=== PATIENT | male | born 1955 | race Caucasian/White ===

== ENCOUNTER → 2018-02-07 01:23 | Outpatient (CLI) | payer MEDICARE, SELFPAY ==
[2018-02-07 11:25] LABS: HCT 42.9 % (40.0-50.0); HGB 14.5 g/dL (13.5-17.5); Mean Corp. HGB Concentration 33.8 g/dL (32.0-36.0); Mean Corpuscular Hemoglobin 32.2 pg (27.0-33.0); Mean Corpuscular Volume 95.3 fL (80-95); Platelet Count 128 x1000/uL (130-400); RBC Distribution Width 13.3 % (11.8-14.1); White Blood Cell Count 3.06 k/cumm (4.4-10.8)
[2018-02-07 11:29] LABS: Anion Gap 4.8 mmol/L (3-11); BUN 17 mg/dL (7-18); CO2 31.2 mmol/L (21.0-32.0); CREATININE 0.73 mg/dL (0.70-1.30); Calcium 8.5 mg/dL (8.5-10.1); Chloride 104 mmol/L (98-107); Cholesterol 167 mg/dL (50-200); Glucose 97 mg/dL (70-100); HDL Cholesterol 41 mg/dL (40-60); LDL CHOLESTEROL 114 mg/dL (<100); Sodium 140 mmol/L (136-145); Triglyceride 60 mg/dL (30-150)
[2018-02-07 11:35] LABS: INR 1.9 (1.0-3.5); Prothrombin Time 17.8 sec (9.3-10.8)
== END ==
PROVIDERS: PCP Family Medicine; Visit Provider Family Medicine
DX: I10 Essential (primary) hypertension (principal); R53.82 Chronic fatigue, unspecified; I82.890 Acute embolism and thrombosis of other specified veins; Z79.01 Long term (current) use of anticoagulants
CPT/HCPCS: 36415; 80048; 80061; 83721; 85027; 85610

== ENCOUNTER 2018-03-17 09:41 | Outpatient (CLI) | payer MEDICARE, SELFPAY ==
[2018-03-17 10:04] LABS: Prothrombin Time 17.7 sec (9.3-10.8)
[2018-03-17 10:06] LABS: INR 1.8 (1.0-3.5)
== END 2018-03-17 10:01 ==
PROVIDERS: PCP Family Medicine; Visit Provider Family Medicine
DX: I82.890 Acute embolism and thrombosis of other specified veins (principal); Z79.01 Long term (current) use of anticoagulants
CPT/HCPCS: 36415; 85610

== ENCOUNTER 2018-03-25 11:06 | Emergency (ER) | payer MEDICARE, SELFPAY ==
[2018-03-25] VITALS (10 sets, daily range): BP systolic 119–139; BP diastolic 73–84; PULSE 72–83; RESP 15–28; TEMP 36.5–36.7; O2SAT 96–99
--- NOTE | 2018-03-25 11:16 | W.ED.GENAD ---
Discharge Plan Disposition Patient Disposition: HOME Condition: Stable Discharge Details Chief Complaint: CVA/TIA Clinical Impression: Dementia, Weakness Reason For Visit: GABRIEL Primary Care Provider: Simon Mojica ED Provider: Radha Nair Home Meds and New Rx's Prescriptions: Continue glucosamine sulfate 1,000 MG capsule 2,000 mg PO DAILY RF: 0 finasteride [Proscar] 5 MG tablet 5 mg PO DAILY Qty: 90 RF: 4 warfarin [Coumadin] 7.5 MG tablet 0 - 2 tab PO DAILY Qty: 100 RF: 5 warfarin 2.5 MG tablet 2.5 mg PO As Directed Qty: 100 RF: 3 valacyclovir 500 MG tablet 500 mg PO DAILY RF: 0 sodium chloride [Edna 128] 3.5 GM ointment 3.5 gm Ophthalmic DAILY RF: 0 prednisolone acetate 5 ML drops,suspension 1 drp Ophthalmic DAILY RF: 0 Metoprolol Succinate 50 MG TAB.ER.24H 50 mg PO DAILY Qty: 90 RF: 4 methylphenidate HCl 10 MG tablet 10 mg PO BID Qty: 60 RF: 0 ipratropium bromide 15 ML spray,non-aerosol 2 spry NS TID PRNQty: 1 RF: 1 Discharge Instructions Instructions: Dementia (ED), Weakness (ED) Additional Instructions: Please return immediately to the emergency department if you develop any new or worsening symptoms or if you become otherwise concerned. It is extremely important that you make an appointment to be seen by Dr. Miles of neurology and also by Dr. Mojica this week in follow-up. Referrals: Simon Mojica MD [Primary Care Provider] - Marina Miles MD [ [facility] STAFF PHYSICIAN] - Discharge Data Discharge Date/Time-TO BE ENTERED AT DEPARTURE: 03/25/18 14:54 Medical Decision Making [facility] Narrative Medical decision making narrative: Bharathi Mora is a 62 y/o man with history of hypertension, pulmonary embolism on Coumadin presenting to the emergency department with sensation of weakness in all 4 extremities and inability to move any extremities, change in speech. On exam, patient has normal tone and does have strength in his extremities. He has deep tendon reflexes. His weakness appears to be volitional, as of holding his mouth shut while talking. Unclear if there may be some mild stroke symptoms prompting secondary volitional component, plan for CT head, screening labs, EKG, will monitor and reassess. CT head okay. I did discuss the patient with Dr. Martinez, who has seen the patient in the emergency department: Exam not consistent with TIA/CVA, she suspects dementia as possible etiology. Patient now reporting to me that his weakness seems improved and he is moving all his limbs normally. His speech is also normal. On reassessment, I spoke with the patient's who reports the patient has had memory issues over the past 10 years that seem to be worsening, and he seems to be generally more confused over the past few months. Had a lengthy discussion with her and the patient regarding return to emergency department precautions and importance of outpatient follow-up with PCP and neurology for further evaluation. They are amenable to plan. Medical Records Medical records reviewed: Yes I reviewed the patient's medical records. Imaging Data Radiologic Study: Attestation: I personally reviewed and interpreted this imaging study as follows: Radiologist's impression: CRANIAL CT (WITHOUT CONTRAST): A noncontrast cranial CT was performed. Comparison 07/19/17. The ventricular system is normal in appearance. There is no evidence of an intracranial mass lesion. There is no evidence of a subdural or epidural hematoma. No focal areas of decreased attenuation are seen. CONCLUSION: Normal noncontrast Cranial CT. The findings were discussed with the emergency department on the date of the examination. Lab Data Lab results reviewed: Yes I reviewed the patient's lab results. ECG Data Attestation: I personally reviewed and interpreted this ECG (s) as follows: Interpretation: EKG shows NSR at 84 with normal axis, no acute ischemic changes, nondiagnostic EKG HPI - General Adult General Date/Time Provider Initiated Documentation: 03/25/18 11:12. Information obtained by: patient, family, RN notes reviewed and old records reviewed. HPI Narrative: Bharathi Mora is a 2-year-old man with history of hypertension, pulmonary embolism on Coumadin presenting to the emergency department with inability to move. Patient and his report that [employer] he was doing work outside of his house when he began to feel weak. He came into the house and sat down in a chair and felt that he could not move any of his limbs and that his speech was altered. Patient has report that he has had some similar symptoms in the past, but they have resolved rapidly and he has not sought medical attention. Patient denies any pain, shortness of breath, cough, difficulty swallowing, visual changes, numbness/tingling, recent travel, recent illnesses. Has been eating and drinking normally. Related Data Home Medications Medication Instructions Recorded Confirmed glucosamine sulfate 2,000 mg PO DAILY 12/03/12 03/25/18 finasteride [Proscar] 5 mg PO DAILY #90 tab-cap 06/01/17 03/25/18 warfarin 2.5 mg PO As Directed #100 tab-cap 18 03/25/18 warfarin [Coumadin] 0 - 2 tab PO DAILY #100 tab 08/31/17 03/25/18 ipratropium bromide 2 spry NS TID PRN #1 spray 02/05/18 03/25/18 methylphenidate HCl 10 mg PO BID #60 tab-cap 02/05/18 03/25/18 prednisolone acetate 1 drp OPHTHALMIC DAILY drp 02/05/18 03/25/18 sodium chloride [Edna 128] 3.5 gm OPHTHALMIC DAILY 02/05/18 03/25/18 valacyclovir 500 mg PO DAILY tab-cap 02/05/18 03/25/18 Previous Rx's Medication Instructions Recorded finasteride [Proscar] 5 mg PO DAILY #90 tab-cap 06/01/17 warfarin 2.5 mg PO As Directed #100 tab-cap 08/31/17 warfarin [Coumadin] 0 - 2 tab PO DAILY #100 tab 08/31/17 methylphenidate HCl 10 mg PO BID #60 tab-cap 02/05/18 Allergies Allergy/AdvReac Type Severity Reaction Status Date / Time peanut AdvReac Mild DIARRHEA Unverified 03/25/18 12:16 Review of Systems Review of Systems Constitutional: denies fevers Eyes: denies eye pain ENT: denies facial pain, dental pain, sore throat, difficulty swallowing Cardiovascular: denies chest pain, edema Respiratory: denies SOB, cough GI: denies abdominal pain, vomiting, diarrhea : denies flank pain MSK: denies back pain, neck pain, arthralgias, myalgias Skin: denies rash Neuro: denies headaches, lightheadedness, reports weakness of all limbs, difficulty speaking PFSH Family History Mother Essential hypertension Myocardial infarction Cerebrovascular accident Father Diabetes Heart disease Asthma Brother HIV disease Brother No problems noted. Brother Diabetes Heart disease Brother Heart disease Medical History ADHD (Acute) Memory loss (Acute) Paroxysmal SVT (supraventricular tachycardia) (Acute) BPH (benign prostatic hyperplasia) (Chronic) DVT (deep venous thrombosis) (Chronic) Hypertension (Chronic) Mitral insufficiency (Chronic) PVD (peripheral vascular disease) (Chronic) Pulmonary embolism (Chronic) Social History Smoking/Tobacco Use Status: Former Tobacco Use Surgical History Appendectomy IVC filter (~2008) Exam Narrative Exam Narrative: Constitutional: well and [id number], pleasant, speech somewhat garbled, patient opening his mouth minimally during speaking HENT: head atraumatic, normocephalic normal inspection, mucous membranes moist Eyes: conjunctiva normal, sclera normal, pupils 3mm b/l Neck: no stridor, normal ROM, trachea midline Chest: normal inspection Resp: normal work of breathing, LCTAB Cardio: normal rate, normal rhythm, no murmur appreciated GI: abdomen soft, non-tender, non-distended Back: normal inspection, no rash Skin: warm, dry, normal color, no rash Neuro: alert, not altered, cranial nerves II through XII intact, DTRs all extremities 3+, patient reporting that he cannot move any of his limbs at all against gravity, however when I move 1 of his limbs into the air he holds it there, this is true for all extremities Ext: no edema Psych: normal mood, normal affect, normal behavior
--- NOTE | 2018-03-25 11:21 | DI.CT_ITS ---
SYMPTOMS/DIAGNOSIS: EXTREMITY WEAKNESS, ? CVA CRANIAL CT (WITHOUT CONTRAST): A noncontrast cranial CT was performed. Comparison 07/19/17. The ventricular system is normal in appearance. There is no evidence of an intracranial mass lesion. There is no evidence of a subdural or epidural hematoma. No focal areas of decreased attenuation are seen. CONCLUSION: Normal noncontrast Cranial CT. The findings were discussed with the emergency department on the date of the examination.
[2018-03-25 12:08] LABS: Abs Immature Grans 0.01 k/cumm (0.0-0.09); Absolute Basophil Count 0.01 k/cumm (0.0-0.2); Absolute Eosinophil Count 0.06 k/cumm (0.0-0.7); Absolute Lymphocyte Count 0.93 k/cumm (1.2-3.4); Absolute Monocyte Count 0.63 k/cumm (0.11-0.7); Absolute Neutrophil Count 3.89 k/cumm (1.2-6.7); Basophils % 0.2; Eosinophils % 1.1; HCT 43.1 % (40.0-50.0); HGB 14.9 g/dL (13.5-17.5); Immature Grans % 0.2; Lymphocytes % 16.8; Mean Corp. HGB Concentration 34.6 g/dL (32.0-36.0); Mean Corpuscular Hemoglobin 32.7 pg (27.0-33.0); Mean Corpuscular Volume 94.7 fL (80-95); Mean Platelet Volume 11.1 fL (8.0-11.0); Monocytes % 11.4; Neutrophils % 70.3; Platelet Count 126 x1000/uL (130-400); RBC 4.55 m/cumm (4.50-6.00); RBC Distribution Width 13.3 % (11.8-14.1); White Blood Cell Count 5.53 k/cumm (4.4-10.8)
[2018-03-25 12:09] LABS: Lactate-non-spesis 1.3 mmol/L (0.6-1.4)
--- NOTE | 2018-03-25 12:17 | W.NEUROCONSU ---
Date of service: 03/25/18 History of Present Illness Chief Complaint: Quadriplegia Narrative: Mr. Mora is a 62-year-old, right-handed man with a past medical history of paroxysmal SVT, peripheral vascular disease, prior PE and DVT status post IVC filter and on Coumadin, ADHD, hypertension, and history of dementia first mentioned in the chart since 2014. He was at home alone this morning. While working in his shop, he describes numbness and tingling in his arms and legs which progressed to weakness/quadriplegia. He sat down and was able to call his who recommended he call 911. This was around 10 AM. EMS came to his house and brought him to the [facility] emergency room. In the emergency room, he was noted to have no spontaneous movements including the face. He was able to speak but this was somewhat altered per history. I was able to evaluate him at approximately noon time in which I witnessed him make a rapid and complete recovery. Otherwise, he has a history of memory loss documented in the chart since 2014. His notes that he has had significant difficulty with short-term memory, has been going on longer than 3 years, but has been especially worse in the last 3 years. She took over management of the bills approximately 10 years ago. He continues to drive but only locally and for short distances. He does not drive at night as he has severe halos with lights which he gets distracted by while driving. 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 He had a CT head performed today which I was able to review and showed no acute processes. He has mild generalized cerebral atrophy and moderate apparent white matter disease changes. It is unchanged from a CT head performed earlier this year. He has had CT head's performed in 2012, 2015, and 2016 of which the reports were read as normal. He has had a recent normal TSH. I cannot find any evidence that he has had a B12 level checked. In 2008, he weighted over 500# by report. He has lost the weight slowly over the last 9 years. Consults Consult date: 03/25/18 Requesting physician: Radha Nair Assessment and Plan (1) Quadriplegia: Current visit: No Status: Acute Transient, now resolved. See discussion below. (2) Dementia: Current visit: No Status: Chronic Mr. Mora is a 62-year-old, right-handed man who presented with acute and rapid onset bilateral arm and leg paresthesias followed by rapid quadriplegia involving his face and neck. Extensive work-up including CT head, labs, and EKG were unremarkable. He has made a complete and spontaneous recovery. His neurological exam is now normal. I suspect that his clinical symptoms were psychogenic and related to his underlying venting process. He does have some parkinsonian features. Dementia with Lewy Bodies and frontotemporal dementia remain on the differential. Alzheimer's seems less likely given his young age, but also remains on the differential. He should follow-up in the neurology clinic for a more thorough evaluation. Review of Systems Review of Systems All systems reviewed & are unremarkable except as noted in HPI and below PFSH Family History Mother Essential hypertension Myocardial infarction Cerebrovascular accident Father Diabetes Heart disease Asthma Brother HIV disease Brother No problems noted. Brother Diabetes Heart disease Brother Heart disease Medical History ADHD (Acute) Memory loss (Acute) Paroxysmal SVT (supraventricular tachycardia) (Acute) BPH (benign prostatic hyperplasia) (Chronic) DVT (deep venous thrombosis) (Chronic) Hypertension (Chronic) Mitral insufficiency (Chronic) PVD (peripheral vascular disease) (Chronic) Pulmonary embolism (Chronic) Social History Smoking/Tobacco Use Status: Former Tobacco Use Surgical History Appendectomy IVC filter (~2008) Exam Narrative Exam Narrative: Physical Exam: Gen: Patient of apparent stated age, NAD, mild-mod masked facies Head and face: no facial or cranial abnormalities Neck: Supple, no meningismus, no occipital tenderness CV: RRR Resp: CTA B/L Abd: soft, nontender, nondistended Ext: No edema. No clubbing or cyanosis. No bony deformity. Peripheral vascular color changes in bilateral LE. Neuro Exam: Language: fluency, naming, repetition, and comprehension intact; Mental Status: AAO to self, current events intact, fund of knowledge intact; Speech: no dysarthria Cranial nerves: Funduscopy: not performed CN II: visual mccall intact CN III, IV, : extraocular movements intact, no nystagmus, pupils symmetric and reactive to light CN V: face sensation intact to LT and PP CN VII: no facial asymmetry noted CN VIII: hearing intact bilaterally CN IX, X: palate rises symmetrically CN XI: trapezius/SCM 5/5 bilaterally CN XII: protrudes tongue symmetrically Sensory: intact to LT and PP in all extremities; PP reduced distally bilateral in the LE Motor: bulk intact. Initially upon exam, had only minimal movements in right hand and in neck turning. By end of visit, had full 5/5 strength throughout distally and proximally. Reflexes: 2+ at the biceps, triceps, brachioradialis, patella, and achilles tendons bilaterally; toes down going bilaterally; Coordination: no ataxia Gait: deferred; Results Labs : 03/25/18 11:55 03/25/18 11:55 Laboratory Results - last 24 hr 03/25/18 03/25/18 11:55 11:55 WBC 5.53 RBC 4.55 Hgb 14.9 Hct 43.1 MCV 94.7 MCH 32.7 MCHC 34.6 RDW 13.3 Plt Count 126 L MPV 11.1 H Immature Gran % 0.2 Neutrophils % 70.3 Lymphocytes % 16.8 Monocytes % 11.4 Eosinophils % 1.1 Basophils % 0.2 Absolute Neutrophils 3.89 Absolute Lymphocytes 0.93 L Absolute Monocytes 0.63 Absolute Eosinophils 0.06 Absolute Basophils 0.01 Lactate 1.3 Vital Signs 03/25/18 11:25 03/25/18 11:29 03/25/18 11:30 03/25/18 11:30 03/25/18 11:44 03/25/18 11:46 03/25/18 11:50 03/25/18 12:00 03/25/18 12:01 03/25/18 12:10 03/25/18 14:45 Weight 110.7 kg 110.7 kg 110.7 kg BP 139/84 139/84 120/82 119/73 119/73 Blood Pressure Location Lt brachial Position Supine Supine Respiration 19 19 24 15 28 H 19 17 24 24 17 Pulse 78 78 79 77 72 Temp 36.5 C 36.5 C 36.7 C Temp Source Temporal Artery Scan Temporal Artery Scan Pulse Oximetry (%) 98 98 97 98 99 96 98 96 97 Oxygen Flow Rate 0 0 Ambulatory Orders Medication Instructions Recorded glucosamine sulfate 2,000 mg PO DAILY 12/03/12 finasteride [Proscar] 5 mg PO DAILY #90 tab-cap 06/01/17 warfarin 2.5 mg PO As Directed #100 tab-cap 08/31/17 warfarin [Coumadin] 0 - 2 tab PO DAILY #100 tab 08/31/17 Metoprolol Succinate 50 mg PO DAILY #90 tab-cap 02/05/18 ipratropium bromide 2 spry NS TID PRN #1 spray 02/05/18 methylphenidate HCl 10 mg PO BID #60 tab-cap 02/05/18 prednisolone acetate 1 drp OPHTHALMIC DAILY drp 02/05/18 sodium chloride [Edna 128] 3.5 gm OPHTHALMIC DAILY 02/05/18 valacyclovir 500 mg PO DAILY tab-cap 02/05/18
[2018-03-25 12:20] LABS: Prothrombin Time 14.9 sec (9.3-10.8)
[2018-03-25 12:21] LABS: INR 1.5 (1.0-3.5)
--- NOTE | 2018-03-25 12:21 | NUR.NOTE ---
Nursing Note: 1200 began feeling and movement in head and extremities-By 1210 complete recovery
--- NOTE | 2018-03-25 12:25 | NCONE_ITS ---
Date of service: 03/25/18 History of Present Illness Chief Complaint: Quadriplegia Narrative: Mr. Mora is a 62-year-old, right-handed man with a past medical history of paroxysmal SVT, peripheral vascular disease, prior PE and DVT status post IVC filter and on Coumadin, ADHD, hypertension, and history of dementia first mentioned in the chart since 2014. He was at home alone this morning. 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 He sat down and was able to call his who recommended he call 911. This was around 10 AM. EMS came to his house and brought him to the [facility] emergency room. In the emergency room, he was noted to have no spontaneous movements including the face. He was able to speak but this was somewhat altered per history. I was able to evaluate him at approximately noon time in which I witnessed him make a rapid and complete recovery. Otherwise, he has a history of memory loss documented in the chart since 2014. His notes that he has had significant difficulty with short-term memory, has been going on longer than 3 years, but has been especially worse in the last 3 years. She took over management of the bills approximately 10 years ago. He continues to drive but only locally and for short distances. He does not drive at night as he has severe halos with lights which he gets distracted by while driving. 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 He had a CT head performed today which I was able to review and showed no acute processes. He has mild generalized cerebral atrophy and moderate apparent white matter disease changes. It is unchanged from a CT head performed earlier this year. He has had CT head's performed in 2012, 2015, and 2016 of which the reports were read as normal. He has had a recent normal TSH. I cannot find any evidence that he has had a B12 level checked. In 2008, he weighted over 500# by report. He has lost the weight slowly over the last 9 years. Consults Consult date: 03/25/18 Requesting physician: Radha Nair Assessment and Plan (1) Quadriplegia: Current visit: No Status: Acute Transient, now resolved. See discussion below. (2) Dementia: Current visit: No Status: Chronic Mr. Mora is a 62-year-old, right-handed man who presented with acute and rapid onset bilateral arm and leg paresthesias followed by rapid quadriplegia involving his face and neck. Extensive work-up including CT head, labs, and EKG were unremarkable. He has made a complete and spontaneous recovery. His neurological exam is now normal. I suspect that his clinical symptoms were psychogenic and related to his underlying venting process. He does have some parkinsonian features. Dementia with Lewy Bodies and frontotemporal dementia remain on the differential. Alzheimer's seems less likely given his young age, but also remains on the differential. He should follow-up in the neurology clinic for a more thorough evaluation. Review of Systems Review of Systems All systems reviewed & are unremarkable except as noted in HPI and below PFSH Family History Mother Essential hypertension Myocardial infarction Cerebrovascular accident Father Diabetes Heart disease Asthma Brother HIV disease Brother No problems noted. Brother Diabetes Heart disease Brother Heart disease Medical History ADHD (Acute) Memory loss (Acute) Paroxysmal SVT (supraventricular tachycardia) (Acute) BPH (benign prostatic hyperplasia) (Chronic) DVT (deep venous thrombosis) (Chronic) Hypertension (Chronic) Mitral insufficiency (Chronic) PVD (peripheral vascular disease) (Chronic) Pulmonary embolism (Chronic) Social History Smoking/Tobacco Use Status: Former Tobacco Use Surgical History Appendectomy IVC filter (~2008) Exam Narrative Exam Narrative: Physical Exam: Gen: Patient of apparent stated age, NAD, mild-mod masked facies Head and face: no facial or cranial abnormalities Neck: Supple, no meningismus, no occipital tenderness CV: RRR Resp: CTA B/L Abd: soft, nontender, nondistended Ext: No edema. No clubbing or cyanosis. No bony deformity. Peripheral vascular color changes in bilateral LE. Neuro Exam: Language: fluency, naming, repetition, and comprehension intact; Mental Status: AAO to self, current events intact, fund of knowledge intact; Speech: no dysarthria Cranial nerves: Funduscopy: not performed CN II: visual mccall intact CN III, IV, : extraocular movements intact, no nystagmus, pupils symmetric and reactive to light CN V: face sensation intact to LT and PP CN VII: no facial asymmetry noted CN VIII: hearing intact bilaterally CN IX, X: palate rises symmetrically CN XI: trapezius/SCM 5/5 bilaterally CN XII: protrudes tongue symmetrically Sensory: intact to LT and PP in all extremities; PP reduced distally bilateral in the LE Motor: bulk intact. Initially upon exam, had only minimal movements in right hand and in neck turning. By end of visit, had full 5/5 strength throughout distally and proximally. Reflexes: 2+ at the biceps, triceps, brachioradialis, patella, and achilles tendons bilaterally; toes down going bilaterally; Coordination: no ataxia Gait: deferred; Results Labs : 03/25/18 11:55 03/25/18 11:55 Laboratory Results - last 24 hr 03/25/18 03/25/18 11:55 11:55 WBC 5.53 RBC 4.55 Hgb 14.9 Hct 43.1 MCV 94.7 MCH 32.7 MCHC 34.6 RDW 13.3 Plt Count 126 L MPV 11.1 H Immature Gran % 0.2 Neutrophils % 70.3 Lymphocytes % 16.8 Monocytes % 11.4 Eosinophils % 1.1 Basophils % 0.2 Absolute Neutrophils 3.89 Absolute Lymphocytes 0.93 L Absolute Monocytes 0.63 Absolute Eosinophils 0.06 Absolute Basophils 0.01 Lactate 1.3 Vital Signs 3 l l l l 03/25/18 11:25 l l 03/25/18 11:29 l l 03/25/18 11:30 l l 03/25/18 11:30 l l 03/25/18 11:44 l l 03/25/18 11:46 l l 03/25/18 11:50 l l 03/25/18 12:00 l l 03/25/18 12:01 l l 03/25/18 12:10 l l 03/25/18 14:45 l l Weight 110.7 kg 110.7 kg 110.7 kg l l BP 139/84 139/84 120/82 119/73 119/73 l l Blood Pressure Location Lt brachial l l Position Supine Supine l l Respiration 19 19 24 15 28 H 19 17 24 24 17 l l Pulse 78 78 79 77 72 l l Temp 36.5 C 36.5 C 36.7 C l l Temp Source Temporal Artery Scan Temporal Artery Scan l l Pulse Oximetry (%) 98 98 97 98 99 96 98 96 97 l l Oxygen Flow Rate 0 0 Ambulatory Orders Medication Instructions Recorded glucosamine sulfate 2,000 mg PO DAILY 12/03/12 finasteride [Proscar] 5 mg PO DAILY #90 tab-cap 06/01/17 warfarin 2.5 mg PO As Directed #100 tab-cap 08/31/17 warfarin [Coumadin] 0 - 2 tab PO DAILY #100 tab 08/31/17 Metoprolol Succinate 50 mg PO DAILY #90 tab-cap 02/05/18 ipratropium bromide 2 spry NS TID PRN #1 spray 02/05/18 methylphenidate HCl 10 mg PO BID #60 tab-cap 02/05/18 prednisolone acetate 1 drp OPHTHALMIC DAILY drp 02/05/18 sodium chloride [Edna 128] 3.5 gm OPHTHALMIC DAILY 02/05/18 valacyclovir 500 mg PO DAILY tab-cap 02/05/18
[2018-03-25 12:28] LABS: ALT 20 U/L (12-78); AST 21 U/L (15-37); Albumin 3.4 g/dL (3.4-5.0); Alkaline Phosphatase 81 U/L (46-116); Anion Gap 5.3 mmol/L (3-11); BUN 18 mg/dL (7-18); Bilirubin, Total 0.9 mg/dL (0.2-1.0); CO2 31.7 mmol/L (21.0-32.0); CREATININE 0.75 mg/dL (0.70-1.30); Calcium 8.9 mg/dL (8.5-10.1); Chloride 106 mmol/L (98-107); Glucose 91 mg/dL (70-100); Potassium 3.5 mmol/L (3.5-5.1); Sodium 143 mmol/L (136-145); Total Protein 7.2 g/dL (6.4-8.2); Troponin I < 0.02 ng/mL (0.00-0.06)
[2018-03-25 12:33] LABS: TSH (W/Ref FT4) 2.72 uIU/mL (0.358-3.74)
[2018-03-25 14:13] LABS: Bilirubin Negative (Negative); Blood Trace-intact (Negative); Clarity Clear; Glucose Negative (Negative); Ketones Trace mg/dL (Negative); Leukocyte Esterase Negative (Negative); Nitrite Negative (Negative); Urobilinogen 0.2 EU/dL (Up TO 0.2)
[2018-03-25 14:23] LABS: Bacteria Few HPF (Negative); C & S Indicated? No; Casts Negative LPF (Negative); Crystals Negative HPF (Negative); Epithelial Cells Moderate HPF (Negative); Mucus Moderate (Negative); RBC 0-2 (0-2); WBC Negative HPF (0-5)
--- NOTE | 2018-04-01 18:40 | ED.GENADUL_ITS ---
Discharge Plan Disposition Patient Disposition: HOME Condition: Stable Discharge Details Chief Complaint: CVA/TIA Clinical Impression: Dementia, Weakness Reason For Visit: GABRIEL Primary Care Provider: Simon Mojica ED Provider: Radha Nair Home Meds and New Rx's Prescriptions: Continue glucosamine sulfate 1,000 MG capsule 2,000 mg PO DAILY RF: 0 finasteride [Proscar] 5 MG tablet 5 mg PO DAILY Qty: 90 RF: 4 warfarin [Coumadin] 7.5 MG tablet 0 - 2 tab PO DAILY Qty: 100 RF: 5 warfarin 2.5 MG tablet 2.5 mg PO As Directed Qty: 100 RF: 3 valacyclovir 500 MG tablet 500 mg PO DAILY RF: 0 sodium chloride [Edna 128] 3.5 GM ointment 3.5 gm Ophthalmic DAILY RF: 0 prednisolone acetate 5 ML drops,suspension 1 drp Ophthalmic DAILY RF: 0 Metoprolol Succinate 50 MG TAB.ER.24H 50 mg PO DAILY Qty: 90 RF: 4 methylphenidate HCl 10 MG tablet 10 mg PO BID Qty: 60 RF: 0 ipratropium bromide 15 ML spray,non-aerosol 2 spry NS TID PRNQty: 1 RF: 1 Discharge Instructions Instructions: Dementia (ED), Weakness (ED) Additional Instructions: Please return immediately to the emergency department if you develop any new or worsening symptoms or if you become otherwise concerned. It is extremely important that you make an appointment to be seen by Dr. Miles of neurology and also by Dr. Mojica this week in follow-up. Referrals: Simon Mojica MD [Primary Care Provider] - Marina Miles MD [ [facility] STAFF PHYSICIAN] - Discharge Data Discharge Date/Time-TO BE ENTERED AT DEPARTURE: 03/25/18 14:54 Medical Decision Making [facility] Narrative Medical decision making narrative: Bharathi Mora is a 62 y/o man with history of hypertension, pulmonary embolism on Coumadin presenting to the emergency department with sensation of weakness in all 4 extremities and inability to move any extremities, change in speech. On exam, patient has normal tone and does have strength in his extremities. He has deep tendon reflexes. His weakness appears to be volitional, as of holding his mouth shut while talking. Unclear if there may be some mild stroke symptoms prompting secondary volitional component, plan for CT head, screening labs, EKG, will monitor and reassess. CT head okay. I did discuss the patient with Dr. Martinez, who has seen the patient in the emergency department: Exam not consistent with TIA/CVA, she suspects dementia as possible etiology. Patient now reporting to me that his weakness seems improved and he is moving all his limbs normally. His speech is also normal. On reassessment, I spoke with the patient's who reports the patient has had memory issues over the past 10 years that seem to be worsening, and he seems to be generally more confused over the past few months. Had a lengthy discussion with her and the patient regarding return to emergency department precautions and importance of outpatient follow-up with PCP and neurology for further evaluation. They are amenable to plan. Medical Records Medical records reviewed: Yes I reviewed the patient's medical records. Imaging Data Radiologic Study: Attestation: I personally reviewed and interpreted this imaging study as follows: Radiologist's impression: CRANIAL CT (WITHOUT CONTRAST): A noncontrast cranial CT was performed. Comparison 07/19/17. The ventricular system is normal in appearance. There is no evidence of an intracranial mass lesion. There is no evidence of a subdural or epidural hematoma. No focal areas of decreased attenuation are seen. CONCLUSION: Normal noncontrast Cranial CT. The findings were discussed with the emergency department on the date of the examination. Lab Data Lab results reviewed: Yes I reviewed the patient's lab results. ECG Data Attestation: I personally reviewed and interpreted this ECG (s) as follows: Interpretation: EKG shows NSR at 84 with normal axis, no acute ischemic changes , nondiagnostic EKG HPI - General Adult General Date/Time Provider Initiated Documentation: 03/25/18 11:12 . Information obtained by: patient, family, RN notes reviewed and old records reviewed . HPI Narrative: Bharathi Mora is a 2-year-old man with history of hypertension, pulmonary embolism on Coumadin presenting to the emergency department with inability to move. Patient and his report that JPT[employer] he was doing work outside of his house when he began to feel weak. He came into the house and sat down in a chair and felt that he could not move any of his limbs and that his speech was altered. Patient has report that he has had some similar symptoms in the past, but they have resolved rapidly and he has not sought medical attention. Patient denies any pain, shortness of breath, cough, difficulty swallowing, visual changes, numbness/tingling, recent travel, recent illnesses. Has been eating and drinking normally. Related Data Home Medications Medication Instructions Recorded Confirmed glucosamine sulfate 2,000 mg PO DAILY 12/03/12 03/25/18 finasteride [Proscar] 5 mg PO DAILY #90 tab-cap 06/01/17 03/25/18 warfarin 2.5 mg PO As Directed #100 tab-cap 18 03/25/18 warfarin [Coumadin] 0 - 2 tab PO DAILY #100 tab 08/31/17 03/25/18 ipratropium bromide 2 spry NS TID PRN #1 spray 02/05/18 03/25/18 methylphenidate HCl 10 mg PO BID #60 tab-cap 02/05/18 03/25/18 prednisolone acetate 1 drp OPHTHALMIC DAILY drp 02/05/18 03/25/18 sodium chloride [Edna 128] 3.5 gm OPHTHALMIC DAILY 02/05/18 03/25/18 valacyclovir 500 mg PO DAILY tab-cap 02/05/18 03/25/18 Previous Rx's Medication Instructions Recorded finasteride [Proscar] 5 mg PO DAILY #90 tab-cap 06/01/17 warfarin 2.5 mg PO As Directed #100 tab-cap 08/31/17 warfarin [Coumadin] 0 - 2 tab PO DAILY #100 tab 08/31/17 methylphenidate HCl 10 mg PO BID #60 tab-cap 02/05/18 Allergies Allergy/AdvReac Type Severity Reaction Status Date / Time peanut AdvReac Mild DIARRHEA Unverified 03/25/18 12:16 Review of Systems Review of Systems Constitutional: denies fevers Eyes: denies eye pain ENT: denies facial pain, dental pain, sore throat, difficulty swallowing Cardiovascular: denies chest pain, edema Respiratory: denies SOB, cough GI: denies abdominal pain, vomiting, diarrhea : denies flank pain MSK: denies back pain, neck pain, arthralgias, myalgias Skin: denies rash Neuro: denies headaches, lightheadedness, reports weakness of all limbs, difficulty speaking PFSH Family History Mother Essential hypertension Myocardial infarction Cerebrovascular accident Father Diabetes Heart disease Asthma Brother HIV disease Brother No problems noted. Brother Diabetes Heart disease Brother Heart disease Medical History ADHD (Acute) Memory loss (Acute) Paroxysmal SVT (supraventricular tachycardia) (Acute) BPH (benign prostatic hyperplasia) (Chronic) DVT (deep venous thrombosis) (Chronic) Hypertension (Chronic) Mitral insufficiency (Chronic) PVD (peripheral vascular disease) (Chronic) Pulmonary embolism (Chronic) Social History Smoking/Tobacco Use Status: Former Tobacco Use Surgical History Appendectomy IVC filter (~2008) Exam Narrative Exam Narrative: Constitutional: well and [id number], pleasant, speech somewhat garbled, patient opening his mouth minimally during speaking HENT: head atraumatic, normocephalic normal inspection, mucous membranes moist Eyes: conjunctiva normal, sclera normal, pupils 3mm b/l Neck: no stridor, normal ROM, trachea midline Chest: normal inspection Resp: normal work of breathing, LCTAB Cardio: normal rate, normal rhythm, no murmur appreciated GI: abdomen soft, non-tender, non-distended Back: normal inspection, no rash Skin: warm, dry, normal color, no rash Neuro: alert, not altered, cranial nerves II through XII intact, DTRs all extremities 3+, patient reporting that he cannot move any of his limbs at all against gravity, however when I move 1 of his limbs into the air he holds it there, this is true for all extremities Ext: no edema Psych: normal mood, normal affect, normal behavior
== END 2018-03-25 14:54 | disposition home or self-care (01) ==
PROVIDERS: Emergency Provider Student in an Organized Health Care Education/Training Program; PCP Family Medicine
DX: F03.90 Unspecified dementia, unspecified severity, without behavioral disturbance, psychotic disturbance, mood disturbance, and anxiety (principal); R53.1 Weakness; R47.9 Unspecified speech disturbances; I12.9 Hypertensive chronic kidney disease with stage 1 through stage 4 chronic kidney disease, or unspecified chronic kidney disease; N18.9 Chronic kidney disease, unspecified; Z79.01 Long term (current) use of anticoagulants; Z86.711 Personal history of pulmonary embolism
CPT/HCPCS: 36415; 80053; 93005; 99215; 99255; 99285; 70450; 81003; 81015; 83605; 84443; 84484; 85025; 85610; 93010

== ENCOUNTER → 2018-03-27 10:29 | Outpatient (BNVA) | payer MEDICARE, SELFPAY | PROVIDERS: PCP Family Medicine; Visit Provider Psychiatry & Neurology Neurology | DX: R69 Illness, unspecified (principal) ==

== ENCOUNTER 2018-04-09 02:20 | Outpatient (CLI) | payer MEDICARE, SELFPAY ==
[2018-04-09 11:03] LABS: INR 2.5 (1.0-3.5); Prothrombin Time 23.5 sec (9.3-10.8)
== END 2018-04-09 02:40 ==
PROVIDERS: PCP Family Medicine; Visit Provider Family Medicine
DX: I82.890 Acute embolism and thrombosis of other specified veins (principal); Z79.01 Long term (current) use of anticoagulants
CPT/HCPCS: 36415; 85610

== ENCOUNTER → 2018-04-16 13:27 | Outpatient (BNVA) | payer MEDICARE, SELFPAY | PROVIDERS: PCP Family Medicine; Visit Provider Psychiatry & Neurology Neurology | DX: F90.0 Attention-deficit hyperactivity disorder, predominantly inattentive type (principal); R41.3 Other amnesia; R20.2 Paresthesia of skin; I10 Essential (primary) hypertension | CPT/HCPCS: 99214 ==

== ENCOUNTER 2018-04-22 00:45 | Outpatient (CLI) | payer MEDICARE, SELFPAY ==
--- NOTE | 2018-04-22 14:12 | DI.US_ITS ---
SYMPTOMS/DIAGNOSIS: SUDDEN ONSET RIGHT-SIDED WEAKNESS, B45.9, TRANSIENT ISCHEMIC ATTACK, DYSPHASIA BILATERAL DUPLEX CAROTID ULTRASOUND: Duplex evaluation of the carotid circulation was performed according to the usual protocol. There is mild atheromatous plaque formation in the carotid bifurcations bilaterally. Flow velocities in common internal and external carotid arteries are within normal limits bilaterally. There is bilateral antegrade vertebral flow. CONCLUSION: No evidence of a hemodynamically significant carotid stenosis.
== END 2018-04-22 01:05 ==
PROVIDERS: PCP Family Medicine; Visit Provider Family Medicine
DX: G45.9 Transient cerebral ischemic attack, unspecified (principal); R47.02 Dysphasia; R29.898 Other symptoms and signs involving the musculoskeletal system
CPT/HCPCS: 93880

== ENCOUNTER 2018-04-23 01:20 | Outpatient (CLI) | payer MEDICARE, SELFPAY ==
--- NOTE | 2018-04-23 10:45 | DI.MRI_ITS ---
SYMPTOM/DIAGNOSIS: MEMORY LOSS, SPELLS, G30.8, ALZHEIMERS, DEMENTIA, F02.80 BRAIN MRI: Sagittal and axial T 2, axial diffusion and axial T 2 hemo pulse sequences were performed. There is moderate generalized atrophy. Small bilateral solitary regions of increased signal are noted in the frontoparietal white matter consistent with minimal small vessel disease. There is no evidence of a hemorrhage or mass. There is no evidence of restricted diffusion. The ventricles are unremarkable. The normal flow void is demonstrated in the visualized cerebral vessels. SUMMARY: There is mild to moderate generalized atrophy and evidence of minimal small vessel disease. The study is otherwise unremarkable.
== END 2018-04-23 01:40 ==
PROVIDERS: PCP Family Medicine; Visit Provider Psychiatry & Neurology Neurology
DX: G30.9 Alzheimer's disease, unspecified (principal); F02.80 Dementia in other diseases classified elsewhere, unspecified severity, without behavioral disturbance, psychotic disturbance, mood disturbance, and anxiety; R41.3 Other amnesia; G31.9 Degenerative disease of nervous system, unspecified
CPT/HCPCS: 70551

== ENCOUNTER 2018-05-14 02:23 | Outpatient (CLI) | payer MEDICARE, SELFPAY ==
[2018-05-14 11:33] LABS: INR 2.4 (1.0-3.5); Prothrombin Time 22.9 sec (9.3-10.8)
== END 2018-05-14 02:43 ==
PROVIDERS: PCP Family Medicine; Visit Provider Family Medicine
DX: I82.890 Acute embolism and thrombosis of other specified veins (principal); Z79.01 Long term (current) use of anticoagulants
CPT/HCPCS: 36415; 85610

== ENCOUNTER 2018-05-17 10:01 | Emergency (ER) | payer MEDICARE, SELFPAY ==
[2018-05-17] VITALS (29 sets, daily range): BP systolic 99–138; BP diastolic 63–83; PULSE 45–89; RESP 14–23; TEMP 36.6; O2SAT 92–100
--- NOTE | 2018-05-17 10:06 | W.ED.GENAD ---
Discharge Plan Disposition Patient Disposition: HOME Condition: Stable Discharge Details Chief Complaint: CVA/TIA Clinical Impression: Transient right leg weakness Reason For Visit: SHENG Primary Care Provider: Simon Mojica ED Provider: Demarcus Pyle Home Meds and New Rx's Prescriptions: No Action methylphenidate HCl 10 mg tablet 10 mg PO BID MDD 20 mg Qty: 60 RF: 0 glucosamine sulfate 1,000 MG capsule 2,000 mg PO DAILY RF: 0 finasteride [Proscar] 5 MG tablet 5 mg PO DAILY Qty: 90 RF: 4 warfarin [Coumadin] 7.5 MG tablet 0 - 2 tab PO DAILY Qty: 100 RF: 5 warfarin 2.5 MG tablet 2.5 mg PO As Directed Qty: 100 RF: 3 sodium chloride [Edna 128] 3.5 GM ointment 3.5 gm Ophthalmic DAILY RF: 0 prednisolone acetate 5 ML drops,suspension 1 drp Ophthalmic DAILY RF: 0 ipratropium bromide 15 ML spray,non-aerosol 2 spry NS TID PRNQty: 1 RF: 1 valacyclovir 500 mg Tablet 500 mg PO DAILY RF: 0 Discharge Instructions Additional Instructions: Your cat scans and lab work did not show any significant findings You are wearing the zio patch to evaluate for atrial fibrillation IF you have severe worsening symptoms, chest pain or difficulty breathing return to the emergency department follow up with your primary care provider within a week Medical Decision Making 62 yo male with hx of pe/dvt on coumadin, pvd, gerd, who comes in with right sided arm and leg weakness starting around 915am while he was at the pediatrics office for a family member and started to have right arm and leg weakness. HAd similar symptoms in March and resolved after an hour. HE has an NIH of 6 on my exam (1 for sensation, 2 for right arm and leg drift, and 1 for partial flat nasolabial fol and smile asymmetry). HE is on coumadin so will check inr and obtain stat head ct and cta to eval for cva vs disseection labs unremarkalb and ct head and cta head/neck unremarkable. HIs symptoms have completely resolved and has NIH of 0 now. Could be psychogenic like it was presumed in Mar, but could also be TIA. NO significant stenosis of carotids or vertebrals. I did recommend admission for TIA but given the only thing we'd be evaluating for would be afib he prefers outpatient zio patch and f/u with pcp. He has capacity to make his own decisions. Will order zio patch and advised f/u as scheduled with his pcp on Sunday and return precautions given Differential Diagnosis cva, tia, dissection Imaging Data Radiologic Study: Attestation: I personally reviewed and interpreted this imaging study as follows: Imaging: CT Scan Radiologist's impression: ct head and cta brain/neck unremarkable Lab Data Lab results reviewed: Yes I reviewed the patient's lab results. ECG Data Attestation: I personally reviewed and interpreted this ECG (s) as follows: Prior ECG tracings: not available for review Interpretation: sinus rhythm, rate of 96 pr 162, no acute st t wave changes HPI General Mode of arrival: EMS. Date/Time Provider Initiated Documentation: 05/17/18 10:06. Limitations to Documentation: no limitations. Information obtained by: patient. History of Present Illness 62 year old M presents to the emergency department with the chief complaint of right sided weakness, described as moderate, and it has been constant. No relieving factors improve symptom(s), No exacerbating factors reported . Patient did receive the following treatments prior to arrival, none Related Data Home Medications Medication Instructions Recorded Confirmed glucosamine sulfate 2,000 mg PO DAILY 12/03/12 05/17/18 finasteride [Proscar] 5 mg PO DAILY #90 tab-cap 06/01/17 05/17/18 warfarin 2.5 mg PO As Directed #100 tab-cap 08/31/17 05/03/18 warfarin [Coumadin] 0 - 2 tab PO DAILY #100 tab 08/31/17 05/17/18 ipratropium bromide 2 spry NS TID PRN #1 spray 02/05/18 05/17/18 prednisolone acetate 1 drp OPHTHALMIC DAILY drp 02/05/18 05/17/18 sodium chloride [Edna 128] 3.5 gm OPHTHALMIC DAILY 02/05/18 05/17/18 methylphenidate 10 mg tablet 10 mg PO BID #60 tab-cap MDD 20 mg 05/03/18 05/17/18 valacyclovir 500 mg PO DAILY 05/17/18 05/17/18 Previous Rx's Medication Instructions Recorded finasteride [Proscar] 5 mg PO DAILY #90 tab-cap 06/01/17 warfarin 2.5 mg PO As Directed #100 tab-cap 08/31/17 warfarin [Coumadin] 0 - 2 tab PO DAILY #100 tab 08/31/17 methylphenidate 10 mg tablet 10 mg PO BID #60 tab-cap MDD 20 mg 05/03/18 Allergies Allergy/AdvReac Type Severity Reaction Status Date / Time peanut AdvReac Mild DIARRHEA Unverified 05/17/18 10:24 General BAILEY: 2 Review of Systems Review of Systems All systems reviewed & are unremarkable except as noted in HPI and below Constitutional Denies chills and Denies fever(s) Eyes Denies loss of vision ENT Denies change in voice Cardiovascular Denies chest pain and Denies dyspnea Respiratory Denies dyspnea Gastrointestinal Denies abdominal pain, Denies nausea and Denies vomiting Genitourinary Denies dysuria Musculoskeletal Denies joint swelling Integumentary/Breasts Denies rash Neurologic Denies loss of vision Psychiatric Denies depression Endocrine Denies cold intolerance and Denies heat intolerance Allergic/Immunologic Denies urticaria Exam Const General: no acute distress Orientation: alert HENMT Head: normal to inspection Ears: external ears normal General nose exam: external nose normal Mouth: moist mucous membranes Eyes General: appearance normal, both eyes and all related structures Neck Neck: normal visual inspection Resp Effort & Inspection: normal respiratory effort and able to speak in complete sentences Cardio Rate: regular rate Skin General skin exam: no rashes or lesions noted Neuro General: alert and oriented x3 Extrem General: normal to inspection Psych Mental Status: mental status grossly normal
--- NOTE | 2018-05-17 10:09 | ED.GENADUL_ITS ---
Discharge Plan Disposition Patient Disposition: HOME Condition: Stable Discharge Details Chief Complaint: CVA/TIA Clinical Impression: Transient right leg weakness Reason For Visit: SHENG Primary Care Provider: Simon Mojica ED Provider: Demarcus Pyle Home Meds and New Rx's Prescriptions: No Action methylphenidate HCl 10 mg tablet 10 mg PO BID MDD 20 mg Qty: 60 RF: 0 glucosamine sulfate 1,000 MG capsule 2,000 mg PO DAILY RF: 0 finasteride [Proscar] 5 MG tablet 5 mg PO DAILY Qty: 90 RF: 4 warfarin [Coumadin] 7.5 MG tablet 0 - 2 tab PO DAILY Qty: 100 RF: 5 warfarin 2.5 MG tablet 2.5 mg PO As Directed Qty: 100 RF: 3 sodium chloride [Enda 128] 3.5 GM ointment 3.5 gm Ophthalmic DAILY RF: 0 prednisolone acetate 5 ML drops,suspension 1 drp Ophthalmic DAILY RF: 0 ipratropium bromide 15 ML spray,non-aerosol 2 spry NS TID PRNQty: 1 RF: 1 valacyclovir 500 mg Tablet 500 mg PO DAILY RF: 0 Discharge Instructions Additional Instructions: Your cat scans and lab work did not show any significant findings You are wearing the zio patch to evaluate for atrial fibrillation IF you have severe worsening symptoms, chest pain or difficulty breathing return to the emergency department follow up with your primary care provider within a week Medical Decision Making 62 yo male with hx of pe/dvt on coumadin, pvd, gerd, who comes in with right sided arm and leg weakness starting around 915am while he was at the pediatrics office for a family member and started to have right arm and leg weakness. HAd similar symptoms in March and resolved after an hour. HE has an NIH of 6 on my exam (1 for sensation, 2 for right arm and leg drift, and 1 for partial flat nasolabial fol and smile asymmetry). HE is on coumadin so will check inr and obtain stat head ct and cta to eval for cva vs disseection labs unremarkalb and ct head and cta head/neck unremarkable. HIs symptoms have completely resolved and has NIH of 0 now. Could be psychogenic like it was presumed in Mar, but could also be TIA. NO significant stenosis of carotids or vertebrals. I did recommend admission for TIA but given the only thing we'd be evaluating for would be afib he prefers outpatient zio patch and f/u with pcp. He has capacity to make his own decisions. Will order zio patch and advised f/u as scheduled with his pcp on Sunday and return precautions given Differential Diagnosis cva, tia, dissection Imaging Data Radiologic Study: Attestation: I personally reviewed and interpreted this imaging study as follows: Imaging: CT Scan Radiologist's impression: ct head and cta brain/neck unremarkable Lab Data Lab results reviewed: Yes I reviewed the patient's lab results. ECG Data Attestation: I personally reviewed and interpreted this ECG (s) as follows: Prior ECG tracings: not available for review Interpretation: sinus rhythm, rate of 96 pr 162, no acute st t wave changes HPI General Mode of arrival: EMS . Date/Time Provider Initiated Documentation: 05/17/18 10:06 . Limitations to Documentation: no limitations . Information obtained by: patient . History of Present Illness 62 year old M presents to the emergency department with the chief complaint of right sided weakness, described as moderate, and it has been constant. No relieving factors improve symptom(s), No exacerbating factors reported . Patient did receive the following treatments prior to arrival, none Related Data Home Medications Medication Instructions Recorded Confirmed glucosamine sulfate 2,000 mg PO DAILY 12/03/12 05/17/18 finasteride [Proscar] 5 mg PO DAILY #90 tab-cap 06/01/17 05/17/18 warfarin 2.5 mg PO As Directed #100 tab-cap 08/31/17 05/03/18 warfarin [Coumadin] 0 - 2 tab PO DAILY #100 tab 08/31/17 05/17/18 ipratropium bromide 2 spry NS TID PRN #1 spray 02/05/18 05/17/18 prednisolone acetate 1 drp OPHTHALMIC DAILY drp 02/05/18 05/17/18 sodium chloride [Edna 128] 3.5 gm OPHTHALMIC DAILY 02/05/18 05/17/18 methylphenidate 10 mg tablet 10 mg PO BID #60 tab-cap MDD 20 mg 05/03/18 valacyclovir 500 mg PO DAILY 05/17/18 05/17/18 Previous Rx's Medication Instructions Recorded finasteride [Proscar] 5 mg PO DAILY #90 tab-cap 06/01/17 warfarin 2.5 mg PO As Directed #100 tab-cap 08/31/17 warfarin [Coumadin] 0 - 2 tab PO DAILY #100 tab 08/31/17 methylphenidate 10 mg tablet 10 mg PO BID #60 tab-cap MDD 20 mg 05/03/18 Allergies Allergy/AdvReac Type Severity Reaction Status Date / Time peanut AdvReac Mild DIARRHEA Unverified 05/17/18 10:24 General BAILEY: 2 Review of Systems Review of Systems All systems reviewed & are unremarkable except as noted in HPI and below Constitutional Denies chills and Denies fever(s) Eyes Denies loss of vision ENT Denies change in voice Cardiovascular Denies chest pain and Denies dyspnea Respiratory Denies dyspnea Gastrointestinal Denies abdominal pain, Denies nausea and Denies vomiting Genitourinary Denies dysuria Musculoskeletal Denies joint swelling Integumentary/Breasts Denies rash Neurologic Denies loss of vision Psychiatric Denies depression Endocrine Denies cold intolerance and Denies heat intolerance Allergic/Immunologic Denies urticaria Exam Const General: no acute distress Orientation: alert HENMT Head: normal to inspection Ears: external ears normal General nose exam: external nose normal Mouth: moist mucous membranes Eyes General: appearance normal, both eyes and all related structures Neck Neck: normal visual inspection Resp Effort & Inspection: normal respiratory effort and able to speak in complete sentences Cardio Rate: regular rate Skin General skin exam: no rashes or lesions noted Neuro General: alert and oriented x3 Extrem General: normal to inspection Psych Mental Status: mental status grossly normal
[2018-05-17 10:26] LABS: Absolute Basophil Count 0.02 k/cumm (0.0-0.2); Absolute Eosinophil Count 0.07 k/cumm (0.0-0.7); Absolute Lymphocyte Count 1.11 k/cumm (1.2-3.4); Absolute Monocyte Count 0.36 k/cumm (0.11-0.7); Absolute Neutrophil Count 2.45 k/cumm (1.2-6.7); Basophils % 0.5; Eosinophils % 1.7; HCT 45.9 % (40.0-50.0); HGB 15.9 g/dL (13.5-17.5); Lymphocytes % 27.7; Mean Corp. HGB Concentration 34.6 g/dL (32.0-36.0); Mean Corpuscular Hemoglobin 32.7 pg (27.0-33.0); Mean Corpuscular Volume 94.4 fL (80-95); Mean Platelet Volume 11.5 fL (8.0-11.0); Neutrophils % 61.1; Platelet Count 110 x1000/uL (130-400); RBC 4.86 m/cumm (4.50-6.00); RBC Distribution Width 12.9 % (11.8-14.1); White Blood Cell Count 4.01 k/cumm (4.4-10.8)
--- NOTE | 2018-05-17 10:28 | DI.CT_ITS ---
SYMPTOM/DIAGNOSIS: RT SIDED WEAKNESS NONCONTRAST HEAD CT: Comparison is made with 03/25/18. Comparison MRI is 04/23/18. There is a [place] white matter differentiation preserved. The ventricles and sulci are consistent with the patient's age. No evidence of an acute infarct, hemorrhage , midline shift or mass effect is identified. The visualized paranasal sinuses are clear. The mastoid air cells are well pneumatized. The calvarium is intact. IMPRESSION: No acute intracranial process. The findings were discussed with Dr. Pyle of the ER on the date of the examination. CTA NECK: CT angiography was performed with multi slice acquisition and multi planar and 3D reconstruction. Routine post contrast examination was performed. Findings: The right common carotid artery shows no evidence of dissection, occlusion or significant stenosis. The left common carotid artery is unremarkable without evidence of dissection, occlusion or significant stenosis. The external carotid arteries are unremarkable without evidence of occlusion or significant stenosis. There is calcification at the origins of both internal carotid arteries and the carotid bulbs but no significant stenosis is seen. No evidence of occlusion or dissection is present. The vertebral arteries are unremarkable without evidence of occlusion, dissection or significant stenosis. The lung apices are clear. The soft tissues show no gross abnormalities. Degenerative changes are present in the spine. IMPRESSION: Unremarkable CTA of the neck. No evidence of dissection or occlusion. CTA HEAD: CT angiography was performed with multi slice acquisition and multi planar and 3D reconstruction. The distal internal carotid arteries show no evidence of occlusion or aneurysm. No dissection or significant stenosis is seen. The anterior cerebral arteries are unremarkable. No evidence of occlusion, significant stenosis or aneurysm. The middle cerebral arteries are unremarkable without evidence of occlusion, aneurysm or significant stenosis. The vertebral arteries and basilar artery are unremarkable without evidence of dissection, occlusion, aneurysm or significant stenosis. The posterior cerebral arteries are unremarkable without evidence of occlusion, aneurysm or significant stenosis. IMPRESSION: Unremarkable CTA of the brain. The findings were discussed with the ER on the date of the examination.
[2018-05-17] MEDS: Omnipaque 350 MG/ML 100 ML BTL IJ (10:30)
[2018-05-17 10:41] LABS: PTT Activated 29.4 sec (21.0-31.4); Prothrombin Time 17.7 sec (9.3-10.8)
[2018-05-17 10:42] LABS: ALT 22 U/L (12-78); AST 24 U/L (15-37); Albumin 3.6 g/dL (3.4-5.0); Alkaline Phosphatase 64 U/L (46-116); Anion Gap 11.5 mmol/L (3-11); BUN 14 mg/dL (7-18); Bilirubin, Total 1.2 mg/dL (0.2-1.0); CO2 27.5 mmol/L (21.0-32.0); CREATININE 0.75 mg/dL (0.70-1.30); Calcium 9.2 mg/dL (8.5-10.1); Chloride 101 mmol/L (98-107); Glucose 91 mg/dL (70-100); INR 1.8 (1.0-3.5); Magnesium 1.7 mg/dL (1.8-2.4); Sodium 140 mmol/L (136-145); Total Protein 7.2 g/dL (6.4-8.2)
[2018-05-17 10:53] LABS: Troponin I < 0.02 ng/mL (0.00-0.06)
--- NOTE | 2018-06-06 10:50 | ZIOP_ITS ---
ZIO PATCH REPORT DATE OF DICTATION June 06, 2018 INDICATION Generalized muscle weakness. Analysis time 13 days and 17 hours. COMMENTS Predominant underlying rhythm is sinus rhythm. Average heart rate while in sinus rhythm 72 beats per minute, minimum heart rate 40 beats per minute. Maximum heart rate in sinus rhythm 152 beats per minute. First degree AV block present throughout. 1 short burst of nonsustained VT lasting 5 beats with a max rate of 126 beats per minute. 2 runs of SVT. The longest lasting 1 minute and 29 seconds with a max heart rate of 200 beats per mi nute, with an average heart rate of 173 beats per minute. Otherwise rare isolated atrial ectopy. Frequent isolated ventricular ectopy accounting for 9.3% of to valerie beats. Ventricular bigeminy and trigeminy present. No significant pauses or chato arrhythmias. Six patient triggered events of which one corresponds to bursts of SVT, four corresponds to sinus rhy thm and one corresponds to sinus rhythm with ventricular bigeminy. Seven diary entries, with symptoms such as shortness of breath, lightheadedness, dizziness, chest sara n, pressure predominantly corresponds to sinus rhythm, but occasionally to PVCs. Joby Terry M.D. DHARA/bill T - 06/06/2018
== END 2018-05-17 12:43 | disposition home or self-care (01) ==
LOC: ER 13:03
PROVIDERS: Emergency Provider Emergency Medicine; PCP Family Medicine
DX: G83.11 Monoplegia of lower limb affecting right dominant side (principal); R29.706 NIHSS score 6; Z86.718 Personal history of other venous thrombosis and embolism; Z79.01 Long term (current) use of anticoagulants; I12.9 Hypertensive chronic kidney disease with stage 1 through stage 4 chronic kidney disease, or unspecified chronic kidney disease; N18.9 Chronic kidney disease, unspecified
CPT/HCPCS: 36415; 70496; 70498; 80053; 93005; 93225; 99285; 70450; 83735; 84484; 85025; 85610; 85730; 93010; J3490

== ENCOUNTER → 2018-05-23 14:39 | Outpatient (BNVA) | payer MEDICARE, SELFPAY | PROVIDERS: PCP Family Medicine; Visit Provider Psychiatry & Neurology Neurology | DX: F03.90 Unspecified dementia, unspecified severity, without behavioral disturbance, psychotic disturbance, mood disturbance, and anxiety (principal); R46.89 Other symptoms and signs involving appearance and behavior; Z79.01 Long term (current) use of anticoagulants; I10 Essential (primary) hypertension | CPT/HCPCS: 99214 ==

== ENCOUNTER 2018-06-06 09:47 | Outpatient (CLI) | payer MEDICARE, SELFPAY | END 2018-06-06 10:07 | PROVIDERS: PCP Family Medicine; Referring Provider Emergency Medicine; Visit Provider Internal Medicine Cardiovascular Disease | DX: R53.1 Weakness (principal); M62.81 Muscle weakness (generalized); I44.0 Atrioventricular block, first degree; I47.1 Supraventricular tachycardia; I47.2 Ventricular tachycardia | CPT/HCPCS: 0298T ==

== ENCOUNTER 2018-06-14 01:13 | Outpatient (CLI) | payer MEDICARE, SELFPAY ==
--- NOTE | 2018-06-14 14:00 | MERGE_ITS ---
*[facility]* *[facility]* [address] [place] [address] Date of study: 06/14/2018 Transthoracic Echocardiography M-mode, complete 2D, complete spectral Doppler, and color Doppler *STUDY CONCLUSIONS* Summary: 1. Left ventricle: The cavity size was normal. Systolic function was hyperdynamic. The estimated ejection fraction was 65-70%. There was no evidence of elevated ventricular filling pressure by Doppler parameters. 2. Mitral valve: There was mild regurgitation. 3. Left atrium: The atrium was mildly dilated. 4. Right ventricle: The cavity size was normal. Wall thickness was normal. Systolic function was normal. 5. Atrial septum: No defect or patent foramen ovale was identified. 6. Pulmonary arteries: Pulmonary systolic pressure was in the range of 30mm Hg to 40mm Hg. 7. Inferior vena cava: The vessel was patent and normal in size. The respirophasic diameter changes were in the normal range (greater than or equal to 50%), consistent with normal central venous pressure. *PATIENT PRESENTATION* Height: 177.8cm ((70in) ) S/D Pressure: 161 / 86 Weight: 97.5kg ((214.5lb) ) BSA: 2.22m^2 Test start time: 02:20 PM. Test stop time: 03:40 PM. PERFORMING Unknown PERFORMING [facility] ORDERING Marina Miles REFERRING Marina Miles DIRECTOR OF LOSS PREVENTION RT Shahrzad (R)(MARY ANN), CYRUS *PROCEDURE DATA* Procedure information: This study was interpreted by [facility]. Pertinent images and digital data are archived for permanent storage and are available for subsequent review. Comparison was made to the study of 03/04/2009. Study status: Routine. Transthoracic echocardiography. M-mode, complete 2D, complete spectral Doppler, and color Doppler. A Transthoracic Echocardiogram was performed. Scanning was performed from the parasternal, apical, subcostal, and suprasternal notch acoustic windows. Images were obtained using an [id number] cardiac ultrasound machine. Image quality was good. A 22 gauge IV was inserted by phil malave CT [facility]. Intravenous contrast (normal saline) was administered. Definity amount administered was a total of 20ml. One vial was used. The saline was administered by Michelle alcocer RN . Study completion: The patient tolerated the procedure well. History: PMH: TIA. *CARDIAC ANATOMY* Left ventricle: The cavity size was normal. Systolic function was hyperdynamic. The estimated ejection fraction was 65-70%. Diastolic parameters were normal for age. There was no evidence of elevated ventricular filling pressure by Doppler parameters. Aortic valve: Trileaflet. Doppler: There was no stenosis. There was no regurgitation. VTI ratio of LVOT to aortic valve: 0.65. Valve area (VTI): 2.4cm^2. Indexed valve area (VTI): 1.1cm^2/m^2. Peak velocity ratio of LVOT to aortic valve: 0.68. Valve area (Vmax): 2.5cm^2. Indexed valve area (Vmax): 1.1cm^2/m^2. Mean velocity ratio of LVOT to aortic valve: 0.65. Valve area (Vmean): 2.4cm^2. Indexed valve area (Vmean): 1.1cm^2/m^2. Mean gradient (S): 5.3mm Hg. Peak gradient (S): 9.6mm Hg. Aorta: Aortic root: The aortic root was normal in size. Ascending aorta: The ascending aorta was mildly dilated. Mitral valve: Doppler: There was no evidence for stenosis. There was mild regurgitation. Valve area by pressure half-time: 3.1cm^2. Indexed valve area by pressure half-time: 1.4cm^2/m^2. Peak gradient (D): 2.2mm Hg. Left atrium: The atrium was mildly dilated. Atrial septum: No defect or patent foramen ovale was identified. Right ventricle: The cavity size was normal. Wall thickness was normal. Systolic function was normal. Pulmonic valve: Doppler: There was no evidence for stenosis. There was no significant regurgitation. Peak gradient (S): 5.1mm Hg. Tricuspid valve: Doppler: There was mild regurgitation. Pulmonary artery: Poorly visualized. Pulmonary systolic pressure was in the range of 30mm Hg to 40mm Hg. Right atrium: The atrium was normal in size. Pericardium: There was no pericardial effusion. Systemic veins: Inferior vena cava: Well visualized. The vessel was patent and normal in size. The respirophasic diameter changes were in the normal range (greater than or equal to 50%), consistent with normal central venous pressure. Baseline ECG: Normal sinus rhythm. Measurements Left ventricle Value Reference LV ID, ED, PLAX 5.3 cm 3.5 - 6.0 LV ID, ES, PLAX 3.0 cm 2.1 - 4.0 LV PW thickness, ED, PLAX 1.2 cm LV end-diastolic volume, 1-p A2C 114 ml LV ejection fraction, 1-p A2C 59 % LV end-diastolic volume, 1-p A4C 126 ml LV ejection fraction, 1-p A4C 57 % LV e', lateral 0.089 m/sec LV E/e', lateral 8 LV e', medial 0.07 m/sec LV E/e', medial 11 LV e', average 0.079 m/sec LV E/e', average 9 Ventricular septum Value Reference IVS thickness, ED, PLAX 1.2 cm LVOT Value Reference LVOT ID, A-P 2.2 cm LVOT area 3.7 cm^2 LVOT peak velocity, S 1.05 m/sec LVOT mean velocity, S 0.71 m/sec LVOT VTI, S 23.5 cm LVOT peak gradient, S 4.4 mm Hg LVOT mean gradient, S 2.3 mm Hg Stroke volume (SV), LVOT DP 86 ml Stroke index (SV/bsa), LVOT DP 39 ml/m^2 Aortic valve Value Reference Aortic valve peak velocity, S 1.6 m/sec Aortic valve mean velocity, S 1.09 m/sec Aortic valve VTI, S 36.0 cm Aortic mean gradient, S 5.3 mm Hg Aortic peak gradient, S 9.6 mm Hg VTI ratio, LVOT/AV 0.65 Aortic valve area, VTI 2.4 cm^2 Velocity ratio, peak, LVOT/AV 0.68 Aortic valve area, peak velocity 2.5 cm^2 Velocity ratio, mean, LVOT/AV 0.65 Aortic valve area, mean velocity 2.4 cm^2 Aortic valve area/bsa, mean velocity 1.1 cm^2/m^2 Aorta Value Reference Aortic root ID, ED 3.4 cm Ascending aorta ID, A-P, S 3.7 cm Left atrium Value Reference LA ID, A-P, ES 5.0 cm LA ID/bsa, A-P (H) 2.3 cm/m^2 <=2.2 LA area, ES, A4C (H) 26.7 cm^2 8.8 - 23.4 LA area, ES, A2C 22 cm^2 LA volume/bsa, ES, 1-p A4C 48 ml/m^2 LA volume, ES, 2-p 78 ml LA volume/bsa, ES, 2-p 35 ml/m^2 LA/aortic root ratio 1.47 Mitral valve Value Reference Mitral E-wave peak velocity 0.74 m/sec Mitral A-wave peak velocity 0.91 m/sec Mitral deceleration time (H) 246 ms 150 - 230 Mitral pressure half-time 71 ms Mitral peak gradient, D 2.2 mm Hg Mitral E/A ratio, peak 0.82 Mitral valve area, PHT, DP 3.1 cm^2 Pulmonary veins Value Reference Pulmonary vein peak velocity, S 0.55 m/sec Pulmonary vein peak velocity, D 0.36 m/sec Pulmonary vein velocity ratio, peak, 1.54 S/D Pulmonary vein A-wave reversal peak 0.33 m/sec velocity Tricuspid valve Value Reference Tricuspid regurg peak velocity 2.8 m/sec Tricuspid peak RV-RA gradient 32.2 mm Hg Right atrium Value Reference RA area, ES, A4C 18.7 cm^2 8.3 - 19.5 Pulmonic valve Value Reference Pulmonic peak gradient, S 5.1 mm Hg Legend: (L) and (H) mindy values outside specified reference range. I have personally reviewed the images and have reviewed and edited the reported findings. Electronically signed by Demarcus Lafleur MD 06/14/2018 17:06
[2018-06-14] MEDS: Normal Saline Flush 10 ML SYR 20 ML IVP (16:19)
[2018-06-14 16:22] LABS: INR 2.3 (1.0-3.5); Prothrombin Time 21.6 sec (9.3-10.8)
[2018-06-14 17:27] LABS: Vitamin B12 338 pg/mL (193-986)
== END 2018-06-14 01:33 ==
PROVIDERS: PCP Family Medicine; Visit Provider Psychiatry & Neurology Neurology
DX: G45.9 Transient cerebral ischemic attack, unspecified (principal); I34.0 Nonrheumatic mitral (valve) insufficiency; I82.890 Acute embolism and thrombosis of other specified veins; Z79.01 Long term (current) use of anticoagulants; G30.8 Other Alzheimer's disease; F02.80 Dementia in other diseases classified elsewhere, unspecified severity, without behavioral disturbance, psychotic disturbance, mood disturbance, and anxiety
CPT/HCPCS: 36415; 93306; 82607; 85610

== ENCOUNTER → 2018-06-18 08:37 | Outpatient (BNVA) | payer MEDICARE, SELFPAY | PROVIDERS: PCP Family Medicine; Visit Provider Psychiatry & Neurology Neurology | DX: F03.90 Unspecified dementia, unspecified severity, without behavioral disturbance, psychotic disturbance, mood disturbance, and anxiety; R46.89 Other symptoms and signs involving appearance and behavior; I44.0 Atrioventricular block, first degree; I10 Essential (primary) hypertension | CPT/HCPCS: 99214 ==

== ENCOUNTER 2018-06-20 02:07 | Outpatient (CLI) | payer MEDICARE, SELFPAY ==
--- NOTE | 2018-07-12 09:11 | ZIOP_ITS ---
ZIO Patch INTERPRETATION DATE OF DICTATION July 12, 2018 INDICATION TIA. Analysis time 13 days and 17 hours. Predominant underlying rhythm is sinus rhythm with first-degree AV block. Average heart rate 74 beats per minute, minimum heart rate 41 beats per minute, maximum heart rate 207 beats per minute. 3 short bursts of nonsustained ventricular tachycardia. The longest lasting 4 beats. 4 short bursts of SVT. SVT with fastest interval lasting 8 beats with a max heart rate of 207 beats per minute. The longest lasting 11 beats. Rare atrial ectopy. No atrial fibrillation detected. Frequent isolated ventricular ectopy accounting for 15.3% of total beats. 2 patient trigged events correspond to sinus rhythm with frequent PVCs. Two diary entries with symptoms of lightheadedness, and racing, fluttering sensation correspond to sinus rhythm with frequent PVCs. No significant pauses or chato arrhythmias. Joby Terry M.D. Laisha T-07/12/2018
== END 2018-06-20 02:27 ==
PROVIDERS: PCP Family Medicine; Visit Provider Psychiatry & Neurology Neurology
DX: G45.9 Transient cerebral ischemic attack, unspecified (principal); I44.0 Atrioventricular block, first degree; I47.1 Supraventricular tachycardia; I49.3 Ventricular premature depolarization
CPT/HCPCS: 93225

== ENCOUNTER 2018-07-12 08:49 | Outpatient (CLI) | payer MEDICARE, SELFPAY | END 2018-07-12 09:09 | PROVIDERS: PCP Family Medicine; Referring Provider Family Medicine; Visit Provider Internal Medicine Cardiovascular Disease | DX: G45.9 Transient cerebral ischemic attack, unspecified (principal); I44.0 Atrioventricular block, first degree; I47.1 Supraventricular tachycardia; I49.3 Ventricular premature depolarization | CPT/HCPCS: 0298T ==

== ENCOUNTER 2018-07-17 01:08 | Outpatient (CLI) | payer MEDICARE, SELFPAY | END 2018-07-17 01:28 | PROVIDERS: PCP Family Medicine; Visit Provider Family Medicine | DX: I82.890 Acute embolism and thrombosis of other specified veins (principal); Z79.01 Long term (current) use of anticoagulants | CPT/HCPCS: 36415; 85610 ==

== ENCOUNTER 2018-08-23 03:10 | Outpatient (CLI) | payer MEDICARE, SELFPAY ==
[2018-08-23 11:22] LABS: INR 1.5 (0.9-1.1); Prothrombin Time 14.6 sec (9.3-11.0)
== END 2018-08-23 03:30 ==
PROVIDERS: PCP Family Medicine; Visit Provider Family Medicine
DX: I82.890 Acute embolism and thrombosis of other specified veins (principal); Z79.01 Long term (current) use of anticoagulants
CPT/HCPCS: 36415; 85610

== ENCOUNTER 2018-08-30 01:12 | Outpatient (CLI) | payer MEDICARE, SELFPAY ==
[2018-08-30 11:39] LABS: INR 1.8 (0.9-1.1); Prothrombin Time 18.5 sec (9.3-11.0)
== END 2018-08-30 01:32 ==
PROVIDERS: PCP Family Medicine; Visit Provider Family Medicine
DX: I82.890 Acute embolism and thrombosis of other specified veins (principal); Z79.01 Long term (current) use of anticoagulants
CPT/HCPCS: 36415; 85610

== ENCOUNTER 2018-09-13 08:41 | Outpatient (CLI) | payer MEDICARE, SELFPAY ==
[2018-09-13 12:22] LABS: Prothrombin Time 57.9 sec (9.3-11.0)
[2018-09-13 13:29] LABS: INR 5.7 (0.9-1.1)
== END 2018-09-13 09:01 ==
PROVIDERS: PCP Family Medicine; Visit Provider Family Medicine
DX: I82.890 Acute embolism and thrombosis of other specified veins (principal); Z79.01 Long term (current) use of anticoagulants
CPT/HCPCS: 36415; 85610

== ENCOUNTER 2018-09-16 03:04 | Outpatient (CLI) | payer MEDICARE, SELFPAY ==
[2018-09-16 11:11] LABS: INR 2.7 (0.9-1.1); Prothrombin Time 27.3 sec (9.3-11.0)
== END 2018-09-16 03:24 ==
PROVIDERS: PCP Family Medicine; Visit Provider Family Medicine
DX: I82.890 Acute embolism and thrombosis of other specified veins (principal); Z79.01 Long term (current) use of anticoagulants
CPT/HCPCS: 36415; 85610

== ENCOUNTER 2018-09-20 02:24 | Outpatient (CLI) | payer MEDICARE, SELFPAY ==
[2018-09-20 11:07] LABS: INR 1.5 (0.9-1.1); Prothrombin Time 15.3 sec (9.3-11.0)
== END 2018-09-20 02:44 ==
PROVIDERS: PCP Family Medicine; Visit Provider Family Medicine
DX: I82.890 Acute embolism and thrombosis of other specified veins (principal); Z79.01 Long term (current) use of anticoagulants
CPT/HCPCS: 36415; 85610

== ENCOUNTER 2018-09-27 01:40 | Outpatient (CLI) | payer MEDICARE, SELFPAY ==
[2018-09-27 11:14] LABS: INR 1.5 (0.9-1.1); Prothrombin Time 15.3 sec (9.3-11.0)
== END 2018-09-27 02:00 ==
PROVIDERS: PCP Family Medicine; Visit Provider Family Medicine
DX: I82.890 Acute embolism and thrombosis of other specified veins (principal); Z79.01 Long term (current) use of anticoagulants
CPT/HCPCS: 36415; 85610

== ENCOUNTER 2018-10-04 02:08 | Outpatient (CLI) | payer MEDICARE, SELFPAY ==
[2018-10-04 11:27] LABS: INR 1.5 (0.9-1.1); Prothrombin Time 14.9 sec (9.3-11.0)
== END 2018-10-04 02:28 ==
PROVIDERS: PCP Family Medicine; Visit Provider Family Medicine
DX: I82.890 Acute embolism and thrombosis of other specified veins (principal); Z79.01 Long term (current) use of anticoagulants
CPT/HCPCS: 36415; 85610

== ENCOUNTER 2018-10-11 02:57 | Outpatient (CLI) | payer MEDICARE, SELFPAY ==
[2018-10-11 10:13] LABS: INR 1.9 (0.9-1.1)
== END 2018-10-11 03:17 ==
PROVIDERS: PCP Family Medicine; Visit Provider Family Medicine
DX: I82.890 Acute embolism and thrombosis of other specified veins (principal); Z79.01 Long term (current) use of anticoagulants
CPT/HCPCS: 36415; 85610

== ENCOUNTER 2018-10-25 01:22 | Outpatient (CLI) | payer MEDICARE, SELFPAY ==
[2018-10-25 10:38] LABS: INR 2.6 (0.9-1.1)
== END 2018-10-25 01:42 ==
PROVIDERS: PCP Family Medicine; Visit Provider Family Medicine
DX: I82.890 Acute embolism and thrombosis of other specified veins (principal); Z79.01 Long term (current) use of anticoagulants; I44.0 Atrioventricular block, first degree; I10 Essential (primary) hypertension
CPT/HCPCS: 36415; 99203; 99215; 85610

== ENCOUNTER 2018-11-21 02:16 | Outpatient (CLI) | payer MEDICARE, SELFPAY ==
[2018-11-21 11:49] LABS: Prothrombin Time 19.6 sec (9.3-11.0)
[2018-11-21 11:55] LABS: INR 1.9 (0.9-1.1)
== END 2018-11-21 02:36 ==
PROVIDERS: PCP Family Medicine; Visit Provider Family Medicine
DX: I82.890 Acute embolism and thrombosis of other specified veins (principal); Z79.01 Long term (current) use of anticoagulants
CPT/HCPCS: 36415; 85610

== ENCOUNTER 2018-12-20 02:39 | Outpatient (CLI) | payer MEDICARE, SELFPAY ==
[2018-12-20 11:36] LABS: INR 2.2 (0.9-1.1); Prothrombin Time 21.9 sec (9.3-11.0)
== END 2018-12-20 02:59 ==
PROVIDERS: PCP Family Medicine; Visit Provider Family Medicine
DX: I82.890 Acute embolism and thrombosis of other specified veins (principal); Z79.01 Long term (current) use of anticoagulants
CPT/HCPCS: 36415; 85610

== ENCOUNTER 2019-01-17 02:22 | Outpatient (CLI) | payer MEDICARE, SELFPAY ==
[2019-01-17 13:02] LABS: INR 2.1 (0.9-1.1); Prothrombin Time 21.4 sec (9.3-11.0)
== END 2019-01-17 02:42 ==
PROVIDERS: PCP Family Medicine; Visit Provider Family Medicine
DX: I82.890 Acute embolism and thrombosis of other specified veins (principal); Z79.01 Long term (current) use of anticoagulants
CPT/HCPCS: 36415; 85610

== ENCOUNTER 2019-02-14 03:57 | Outpatient (CLI) | payer MEDICARE, SELFPAY ==
[2019-02-14 10:50] LABS: INR 1.9 (0.9-1.1); Prothrombin Time 18.9 sec (9.3-11.0)
== END 2019-02-14 04:17 ==
PROVIDERS: PCP Family Medicine; Visit Provider Family Medicine
DX: I82.890 Acute embolism and thrombosis of other specified veins (principal); Z79.01 Long term (current) use of anticoagulants
CPT/HCPCS: 36415; 85610

== ENCOUNTER 2019-03-14 03:49 | Outpatient (CLI) | payer MEDICARE, SELFPAY ==
[2019-03-14 11:09] LABS: INR 1.9 (0.9-1.1); Prothrombin Time 19.5 sec (9.3-11.0)
== END 2019-03-14 04:09 ==
PROVIDERS: PCP Family Medicine; Visit Provider Family Medicine
DX: I82.890 Acute embolism and thrombosis of other specified veins (principal); Z79.01 Long term (current) use of anticoagulants
CPT/HCPCS: 36415; 85610

== ENCOUNTER 2019-04-11 02:27 | Outpatient (CLI) | payer MEDICARE, SELFPAY ==
[2019-04-11 11:13] LABS: INR 1.9 (0.9-1.1); Prothrombin Time 19.1 sec (9.3-11.0)
== END 2019-04-11 02:47 ==
PROVIDERS: PCP Family Medicine; Visit Provider Family Medicine
DX: I82.890 Acute embolism and thrombosis of other specified veins (principal); Z79.01 Long term (current) use of anticoagulants
CPT/HCPCS: 36415; 85610

== ENCOUNTER 2019-05-09 00:55 | Outpatient (CLI) | payer MEDICARE, SELFPAY ==
[2019-05-09 11:00] LABS: INR 2.1 (0.9-1.1); Prothrombin Time 20.6 sec (9.3-11.0)
== END 2019-05-09 01:15 ==
PROVIDERS: PCP Family Medicine; Visit Provider Family Medicine
DX: I82.890 Acute embolism and thrombosis of other specified veins (principal); Z79.01 Long term (current) use of anticoagulants
CPT/HCPCS: 36415; 85610

== ENCOUNTER 2019-06-13 07:13 | Outpatient (CLI) | payer MEDICARE, SELFPAY ==
[2019-06-13 09:11] LABS: INR 1.8 (0.9-1.1); Prothrombin Time 17.5 sec (9.3-11.0)
== END 2019-06-13 07:33 ==
PROVIDERS: PCP Family Medicine; Visit Provider Family Medicine
DX: I82.890 Acute embolism and thrombosis of other specified veins (principal); Z79.01 Long term (current) use of anticoagulants
CPT/HCPCS: 36415; 85610

== ENCOUNTER 2019-07-12 00:39 | Outpatient (CLI) | payer MEDICARE, SELFPAY ==
[2019-07-12 11:15] LABS: INR 2.1 (0.9-1.1)
== END 2019-07-12 00:59 ==
PROVIDERS: PCP Family Medicine; Visit Provider Family Medicine
DX: I82.890 Acute embolism and thrombosis of other specified veins (principal); Z79.01 Long term (current) use of anticoagulants
CPT/HCPCS: 36415; 85610

== ENCOUNTER 2019-08-15 10:46 | Outpatient (CLI) | payer MEDICARE, SELFPAY ==
[2019-08-15 13:05] LABS: INR 2.9 (0.9-1.1)
== END 2019-08-15 11:06 ==
PROVIDERS: PCP Family Medicine; Visit Provider Family Medicine
DX: I82.890 Acute embolism and thrombosis of other specified veins (principal); Z79.01 Long term (current) use of anticoagulants
CPT/HCPCS: 36415; 85610

== ENCOUNTER 2019-08-25 22:25 | Outpatient (REF) | payer MEDICARE, SELFPAY ==
[2019-08-25 20:15] LABS: Bilirubin Negative (Negative); Blood Small (Negative); Clarity Turbid (Clear); Glucose Negative (Negative); Ketones Negative (Negative); Leukocyte Esterase Small (Negative); Nitrite Negative (Negative); Specific Gravity 1.025 (1.005-1.025); Urobilinogen 0.2 EU/dL (Up TO 0.2)
[2019-08-25 20:25] LABS: Bacteria Negative HPF (Negative); C & S Indicated? Yes; Crystals Many Amorphous HPF (Negative); Epithelial Cells Negative HPF (Negative); Mucus Negative (Negative); WBC >50 HPF (0-5)
== END 2019-08-25 22:45 ==
LOC: LBN 22:25
PROVIDERS: PCP Family Medicine
DX: R35.0 Frequency of micturition (principal)
CPT/HCPCS: 87077; 81003; 81015; 87086; 87186

== ENCOUNTER 2019-09-10 09:45 | Outpatient (CLI) | payer MEDICARE, SELFPAY ==
[2019-09-10 14:10] LABS: INR 2.1 (0.9-1.1); Prothrombin Time 20.8 sec (9.3-11.0)
== END 2019-09-10 10:05 ==
PROVIDERS: PCP Family Medicine; Visit Provider Family Medicine
DX: I82.890 Acute embolism and thrombosis of other specified veins (principal); Z79.01 Long term (current) use of anticoagulants
CPT/HCPCS: 36415; 85610

== ENCOUNTER 2020-02-20 09:07 | Outpatient (CLI) | payer MEDICARE, SELFPAY ==
[2020-02-20 12:38] LABS: ALT 20 U/L (16-63); AST 27 U/L (15-37); Albumin 3.6 g/dL (3.4-5.0); Alkaline Phosphatase 51 U/L (46-116); Anion Gap 4.2 mmol/L (3-11); BUN 19 mg/dL (7-18); Bilirubin, Total 0.7 mg/dL (0.2-1.0); CO2 33.8 mmol/L (21.0-32.0); CREATININE 0.65 mg/dL (0.70-1.30); Calcium 8.9 mg/dL (8.5-10.1); Chloride 106 mmol/L (98-107); Glucose 96 mg/dL (74-106); Potassium 3.9 mmol/L (3.5-5.1); Sodium 144 mmol/L (136-145); Total Protein 6.8 g/dL (6.4-8.2)
== END 2020-02-20 09:27 ==
PROVIDERS: PCP Nurse Practitioner; Visit Provider Family Medicine
DX: R53.83 Other fatigue (principal)
CPT/HCPCS: 36415; 80053

== ENCOUNTER 2020-09-20 01:56 | Outpatient (CLI) | payer MEDICARE, MEDICAID, SELFPAY ==
[2020-09-21 13:48] LABS: COVID-19 RT-PCR UVMMC Result Positive (Negative)
== END 2020-09-20 01:57 | disposition home or self-care (01) ==
LOC: LBO 01:57
PROVIDERS: PCP Nurse Practitioner; Visit Provider Nurse Practitioner
DX: Z20.822 Contact with and (suspected) exposure to COVID-19 (principal)
CPT/HCPCS: U0003

== ENCOUNTER → 2020-12-01 08:52 | Outpatient (BNVA) | payer MEDICARE, MEDICAID, SELFPAY | PROVIDERS: PCP Nurse Practitioner; Referring Provider Nurse Practitioner; Visit Provider Nurse Practitioner Adult Health | DX: G30.8 Other Alzheimer's disease (principal); F02.80 Dementia in other diseases classified elsewhere, unspecified severity, without behavioral disturbance, psychotic disturbance, mood disturbance, and anxiety; R63.4 Abnormal weight loss | CPT/HCPCS: 99215; G2212 ==

== ENCOUNTER → 2021-01-12 12:58 | Outpatient (BNVA) | payer MEDICARE, MEDICAID, SELFPAY | PROVIDERS: PCP Nurse Practitioner; Referring Provider Nurse Practitioner; Visit Provider Nurse Practitioner Adult Health | DX: G30.8 Other Alzheimer's disease (principal); F02.80 Dementia in other diseases classified elsewhere, unspecified severity, without behavioral disturbance, psychotic disturbance, mood disturbance, and anxiety | CPT/HCPCS: 99213; 99215 ==

== ENCOUNTER → 2021-07-26 08:45 | Outpatient (BNVA) | payer MEDICARE, MEDICAID, SELFPAY | PROVIDERS: PCP Nurse Practitioner; Referring Provider Nurse Practitioner; Visit Provider Nurse Practitioner Adult Health | DX: R13.10 Dysphagia, unspecified (principal); G30.8 Other Alzheimer's disease; F02.80 Dementia in other diseases classified elsewhere, unspecified severity, without behavioral disturbance, psychotic disturbance, mood disturbance, and anxiety | CPT/HCPCS: 99213; 99214 ==

== ENCOUNTER 2021-11-14 13:42 | Inpatient (IN) | payer MEDICARE, MEDICAID, SELFPAY ==
[2021-11-14] VITALS (59 sets, daily range): BP systolic 114–151; BP diastolic 62–86; PULSE 55–88; RESP 14–26; TEMP 36.2–36.4; O2SAT 96–100
--- NOTE | 2021-11-14 13:45 | RT.EKG_ITS ---
APPROVED REPORT Exam: Resting ECG Reason for Exam: SOB Patient Location: E HR:83 bpm ECG Measurements Heart Rate 83 AXIS MD 221 P 109 QRSd 82 QRS 62 QT 349 T 61 QTc 410 Conclusion Sinus rhythm...normal P axis, V-rate 60- 99 Prolonged MD interval...MD >220, V-rate 50- 90 no STEMI, non-diagnostic EKG I have reviewed and interpreted ECG and agree with software generated interpretation.
[2021-11-14 15:00] LABS: Abs Immature Grans 0.02 10^3/uL (0.0-0.06); Absolute Basophil Count 0.06 10^3/uL (0.0-0.2); Absolute Eosinophil Count 0.21 10^3/uL (0.0-0.7); Absolute Lymphocyte Count 0.84 10^3/uL (1.2-3.4); Absolute Monocyte Count 0.68 10^3/uL (0.1-0.8); Absolute Neutrophil Count 4.68 10^3/uL (1.2-6.7); Basophils % 0.9; Eosinophils % 3.2; HCT 44.2 % (40.0-50.0); HGB 14.2 g/dL (13.5-17.5); Immature Grans % 0.3; Lymphocytes % 12.9; MCH 32.6 pg (27.0-33.0); MCHC 32.1 % (32.0-36.0); MCV 102 fL (80-95); MPV 11.6 fL (8.0-11.0); Monocytes % 10.5; Neutrophils % 72.2; Platelet Count 145 10^3/uL (130-400); RBC 4.35 10^6/uL (4.36-5.78); RDW 12.7 % (11.8-14.1); RDW-SD 47.7 fL; WBC 6.49 10^3/uL (4.4-10.8)
--- NOTE | 2021-11-14 15:01 | DI.RAD_ITS ---
Exam(s) XR CHEST 2V PA LATERAL EXAM: XR CHEST 2V PA LATERAL CLINICAL HISTORY: SOB TECHNIQUE: 2D digital imaging was performed. COMPARISON: CR CHEST 2 VIEWS PA,LAT from 11/18/2014 FINDINGS: MEDIASTINUM: Normal. HEART: Normal. PULMONARY VASCULATURE: Normal. LUNGS: Fibrotic changes, worsening from prior. No focal consolidation. PLEURAL SPACE: No pleural effusion. Moderate-sized right pneumothorax. BONE:Flowing osteophytes. IMPRESSION: Moderate size right pneumothorax. Fibrotic lung changes. DATA REPOSITORY: RADIATION DOSE DELIVERED:
--- NOTE | 2021-11-14 15:07 | ED.GENADUL_ITS ---
Discharge Plan Disposition Patient Disposition: [facility] INPATIENT Condition: Stable Discharge Details Chief Complaint: Chest Pain Clinical Impression: Pneumothorax Admit Date/Time: 11/14/21 16:16 Admit Provider: Yoli Carrera Attending Provider: Yoli Carrera Primary Care Provider: Leonor Rose ED Provider: Marisa Prince Discharge Instructions Activity:: Activity as Tolerated Equipment/Supplies:: No Equipment Needed Diet:: Normal Diet Discharge Orders Discharge Orders: Discharge Order (Routine); Ordered 11/16/21 Ordered By: Yoli Carrera Discharge Data Discharge Date/Time-TO BE ENTERED AT DEPARTURE: 11/14/21 21:03 Medical Decision Making Patient is a pleasant 66-year-old gentleman, brought in by his , with chief complaint of shortness of breath and chest discomfort. states that she that he has been having some difficulty taking deep breaths for the past month since he had a fall. However, today noted increase in chest comfort which is atypical for the patient. Has been feeling more short of breath. states that typically it is his anxiety describing some shortness of breath and if she is able to calm him down if symptoms do not improve. Past medical history is pertinent for ambulatory dysfunction, weight loss, pulmonary embolism anticoagulated on Eliquis, dementia, PVD, mitral insufficiency. Patient is a poor historian, is very helpul with information. reports that the patient fell about 1 month ago and landed in a bathtub. Did suffer an injury to his back. Was seen in urgent care for abrasions to his hand. On exam, patient appears anxious, stiff and confused. Patient hemodynamically stable. Diminished breath sounds in the right side, clear lungs on the left, normal cardiac exam. No acute evidence of trauma, abdomen is benign, stable. No lower extremity swelling or calf tenderness. No missed doses of Eliquis for the past week. EKG was obtained and reviewed by Dr. Nair. CXR was reviewed by myself. Concerned for right sided pneumothorax. Placed patient on the monitor, as well as oxygen. Consulted with Dr. Tipton who reviewed CXR. Reviewed imaging. She will come to place chest tube. FINDINGS: MEDIASTINUM: Normal.? HEART: Normal. PULMONARY VASCULATURE: Normal. LUNGS: Fibrotic changes, worsening from prior.? No focal consolidation. ? PLEURAL SPACE: No pleural effusion.? Moderate-sized right pneumothorax.? BONE:Flowing osteophytes.? IMPRESSION: Moderate size right pneumothorax.? Fibrotic lung changes. Patient evaluted by Dr. Carrera. Procedure discussed by Dr. Carrera with patient and his who is POA. Consent obtained and she placed the chest tube. Patient will be admitted by Dr. Carrera for continued monitoring. Patient and family in agreement with this plan. HPI General Date/Time Provider Initiated Documentation: 11/14/21 13:50 . 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 Information obtained by: patient, family and RN notes reviewed . History of Present Illness 66 year old M presents to the emergency department with the chief complaint of right sided chest pain, described as moderate, with intensity rated at 7. Quality is described as aching, and is localized to the chest. Patient reports no radiation. Patient started experiencing this unknown ( reports acute on chronic pain but different quality/aggrivating factors) and it has been constant. Immobilization improves symptom(s), Movement worsens symptoms (pressure on the chest) . Patient notes chest pain and shortness of breath; denies cough, fever/chills, nausea/vomiting and rash. Patient did receive the following treatments prior to arrival, none Related Data Home Medications Medication Instructions Recorded Confirmed cyanocobalamin (vitamin B-12) 1,000 mcg PO DAILY 07/30/18 11/25/21 1,000 mcg tablet,extended release (Vitamin B-12 ER) aspirin 81 mg tablet,delayed 81 mg PO DAILY 06/04/19 11/25/21 release (Adult Aspirin Regimen) glucosamine sulfate 1,000 mg 2,000 mg PO BID 10/28/20 11/25/21 capsule cholecalciferol (vitamin D3) 50 50 mcg PO DAILY 12/01/20 11/25/21 mcg (2,000 unit) capsule apixaban 5 mg tablet 5 mg PO BID #180 tabs 05/13/21 11/25/21 finasteride 5 mg tablet (Proscar) 5 mg PO DAILY #90 tab-caps 05/13/21 11/25/21 prednisolone acetate 1 % eye 1 drp ophthalmic (eye) DAILY 07/26/21 11/25/21 drops,suspension valacyclovir 500 mg tablet 500 mg PO DAILY #90 tabs 10/03/21 11/25/21 sertraline 50 mg tablet 50 mg PO DAILY #30 tabs 11/11/21 11/25/21 nystatin 100,000 unit/gram topical 1 applic topical BID #60 grams 11/22/21 11/25/21 cream nystatin 100,000 unit/gram topical 1 applic topical BID #60 grams 11/22/21 11/25/21 powder Previous Rx's Medication Instructions Recorded apixaban 5 mg tablet 5 mg PO BID #180 tabs 05/13/21 finasteride 5 mg tablet (Proscar) 5 mg PO DAILY #90 tab-caps 05/13/21 valacyclovir 500 mg tablet 500 mg PO DAILY #90 tabs 10/03/21 sertraline 50 mg tablet 50 mg PO DAILY #30 tabs 11/11/21 nystatin 100,000 unit/gram topical 1 applic topical BID #60 grams 11/22/21 cream nystatin 100,000 unit/gram topical 1 applic topical BID #60 grams 11/22/21 powder Allergies Allergy/AdvReac Type Severity Reaction Status Date / Time gluten Allergy Intermediate Verified 11/25/21 10:07 peanut AdvReac Mild DIARRHEA Verified 11/25/21 10:07 General Stated Complaint: Chest Pain BAILEY: 2 Review of Systems Constitutional Constitutional: Reports as per HPI, Denies chills and Denies fever(s) ENT Ears, Nose, Mouth, and Throat: Denies dizziness Cardiovascular Cardiovascular: Reports as per HPI Respiratory Respiratory: Reports as per HPI, Denies chest congestion and Denies cough Gastrointestinal Gastrointestinal: Reports as per HPI, Denies abdominal pain, Denies diarrhea, Denies nausea and Denies vomiting Genitourinary Genitourinary: Denies system reviewed and no additional complaints, except as documented (denies change in urinary habits) Musculoskeletal Musculoskeletal: Reports as per HPI and Denies back pain Integumentary/Breasts Skin/Breast: Reports as per HPI and Denies rash Neurologic Neurologic: Reports as per HPI and Denies dizziness PFSH All Active Problems (Updated 11/25/21 @ 11:29 by MICHEL Crow) Pneumothorax (Acute) Onychomycosis (Acute) Palliative care patient (Acute) Dysphagia (Acute) Intertrigo (Acute) Ambulatory dysfunction (Acute) Weakness (Acute) 2021- improved with PT Weight loss (Acute) AV block, 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) Dementia (Chronic) 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) Chronic anticoagulation (Chronic) for pulmonary embolism- on embolism PVD (peripheral vascular disease) (Chronic) BPH (benign prostatic hyperplasia) (Chronic) Mitral insufficiency (Chronic) Varicose veins of lower extremity (Chronic) Peripheral venous insufficiency (Chronic) Heart murmur, systolic (Chronic 02/05/18) Generalized osteoarthrosis (Chronic) mostly when it is cold Medical History (Updated 11/25/21 @ 11:29 by MICHEL Crow) ADHD (attention deficit hyperactivity disorder), 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) 2021- no longer using adderall Alzheimer disease Carpal tunnel syndrome (02/16/11) DVT (deep venous thrombosis) Essential hypertension (04/07/13) when obese GERD (gastroesophageal reflux disease) Hypertension 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 Brother Diabetes Heart disease Brother Heart disease Social History Smoking/Tobacco Use Status: Former Tobacco Use tobacco type: cigarettes Quit Date: 07/09/78 Second Hand Exposure: Yes Smoking risk assessment performed?: Yes Alcohol Intake: never Drug use: Never Substance use type: does not use Caregiver/Support person: Yes Household members: spouse and children Housing: house Number of Children: 2 Do you need help understanding health information?: Always Pets and animals: No (Rabbit) Sexually active: No Do you think of yourself as: straight/heterosexual Current gender identity: male What is your relationship status?: How often do you talk on the phone with friends or family?: once per week How often do you get together with friends or relatives?: once per week How often do you attend spiritism or nondenominational services?: 4 or more times per year Do you belong to any clubs or organized social groups?: no Panel score (0-1 are the most socially isolated patients): 2 What type of physical activity do you participate in: walking Duration: < 15 minutes/day Frequency: daily Mikaela/Jainism: Religion Seatbelt use: always Drive intox or ride w/intox 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 Do you feel safe in your relationship?: Yes Exam Const General: cooperative, uncomfortable, no acute distress, well developed, anxious and ill appearing chronically (needs assistance with ambulation, very stiff) Nutritional Appearance: average body habitus and well nourished Orientation: alert, awake and oriented x3 HENMT Head: normal to inspection Ears: hearing grossly normal bilaterally Mouth: moist mucous membranes Chest Chest: normal inspection of the chest, normal palpation of entire chest wall, no crepitus and localized rib tenderness with anteroposterior compression (right side) Resp Effort & Inspection: normal respiratory effort, able to speak in complete sentences and no respiratory distress Auscultation: clear to auscultation bilaterally, no rales, no rhonchi and no wheezes Cardio Rate: regular rate Rhythm: regular rhythm Heart Sounds: S1 normal and S2 normal GI Inspection: normal to inspection, no edema and non-distended Palpation: soft, no hepatosplenomegaly, not firm, no guarding, not rigid and nontender Auscultation: normal bowel sounds Back/Spine/Pelvis Back: no CVA tenderness Thoracic/Lumbar Spine: thoracic and lumbar spine normal to inspection Skin General skin exam: no rashes or lesions noted Trauma: no lacerations or abrasions Neuro General: patient alert, patient awake and patient oriented x3 Cognition: normal cognition Speech: speech normal Gait: normal gait Extrem General: normal to inspection, capillary refill normal, no pedal edema, no calf tenderness and normal gait Psych Appearance: grossly normal and well kempt Mental Status: mental status grossly normal Speech and Movement: speech and movement normal Course Vital Signs Vital signs: Vital Signs Temperature 36.2 C L 11/14/21 14:14 Pulse 83 11/14/21 14:14 Respiratory Rate 16 11/14/21 14:14 Blood Pressure 114/78 11/14/21 14:14 Pulse Oximetry 96 11/14/21 14:14 Temperature 36.2 C L 11/14/21 14:14 Temperature Source Temporal Artery Scan 11/14/21 14:14 Pulse 83 11/14/21 14:14 Respiratory Rate 16 11/14/21 14:14 Respiratory Effort 11/14/21 14:14 Blood Pressure 114/78 11/14/21 14:14 Blood Pressure Position Sitting 11/14/21 14:14 Pulse Oximetry 96 11/14/21 14:14 Oxygen Delivery Method Room Air 11/14/21 14:14 Oxygen Flow Rate 0 11/14/21 14:14 Pain Level 7 11/14/21 14:14 Lab/Test Results Lab/Test Results: Laboratory Tests Range/Units 11/14/21 14:30 WBC (4.4-10.8) 10^3/uL 6.49 RBC (4.36-5.78) 10^6/uL 4.35 L Hgb (13.5-17.5) g/dL 14.2 Hct (40.0-50.0) % 44.2 MCV (80-95) fL 102 H MCH (27.0-33.0) pg 32.6 MCHC (32.0-36.0) % 32.1 RDW (11.8-14.1) % 12.7 Plt Count (130-400) 10^3/uL 145 MPV (8.0-11.0) fL 11.6 H Immature Gran % 0.3 Neutrophils % 72.2 Lymphocytes % 12.9 Monocytes % 10.5 Eosinophils % 3.2 Basophils % 0.9 Nucleated RBC % (0.0-0.3) % 0.0 Absolute Neutrophils (1.2-6.7) 10^3/uL 4.68 Absolute Lymphocytes (1.2-3.4) 10^3/uL 0.84 L Absolute Monocytes (0.1-0.8) 10^3/uL 0.68 Absolute Eosinophils (0.0-0.7) 10^3/uL 0.21 Absolute Basophils (0.0-0.2) 10^3/uL 0.06
[2021-11-14 15:18] LABS: ALT 15 U/L (16-63); AST 14 U/L (15-37); Albumin 3.3 g/dL (3.4-5.0); Alkaline Phosphatase 81 U/L (46-116); Anion Gap 2.2 mmol/L (3-11); BUN 17 mg/dL (7-18); Bilirubin, Total 0.7 mg/dL (0.2-1.0); CO2 34.8 mmol/L (21.0-32.0); CREATININE 0.8 mg/dL (0.70-1.30); Chloride 100 mmol/L (98-107); Glucose 112 mg/dL (74-106); Magnesium 2.2 mg/dL (1.8-2.4); Potassium 4.6 mmol/L (3.5-5.1); Sodium 137 mmol/L (136-145); Total Protein 7.8 g/dL (6.4-8.2); Troponin I < 50 ng/L (<or=60)
[2021-11-14] MEDS: LORazepam 2 MG/ML VIAL 0.5 MG IVP (15:36)
[2021-11-14 15:42] LABS: Source Nasal/Nares
[2021-11-14 15:43] LABS: D-Dimer 250 ng/mlFEU (<500)
--- NOTE | 2021-11-14 16:30 | HPE_ITS ---
Assessment and Plan Assessment and plan (1) Pneumothorax on right: Status: Acute Assessment and plan: Right 30% Ptx Discussed chest tube placement with patients . reviewed the procedure and the complications. Please see OPnote (2) Palliative care patient: Status: Acute (3) Ambulatory dysfunction: Status: Acute (4) Dementia: Status: Chronic Qualifiers: Dementia type: Alzheimer's disease Alzheimer's disease onset: other onset Dementia behavioral disturbance: without behavioral disturbance Qualified Code(s): G30.8 - Other Alzheimer's disease; F02.80 - Dementia in other diseases classified elsewhere without behavioral disturbance (5) ADHD (attention deficit hyperactivity disorder), inattentive type: Status: Chronic (6) Pulmonary embolism: Status: Acute Assessment and plan: Hold apixiban. Lovenox 40 mg BID while in house History of Present Illness Consults Consult date: 11/14/21 Requesting physician: Marisa Prince Narrative: Patient is a pleasant 66-year-old gentleman, brought in by his , with chief complaint of shortness of breath and chest discomfort.? states that he has been having some difficulty taking deep breaths for the past month since he had a fall.? However, today noted increase in chest discomfort which is atypical for the patient.? Has been feeling more short of breath.? states that typically it is his anxiety describing some shortness of breath and if she is able to calm him down symptoms usually improve.? His symptoms did not improve today. Past medical history is pertinent for ambulatory dysfunction, weight loss, pulmonary embolism (sattle embolism in 2007) anticoagulated on Eliquis, dementia, PVD, mitral insufficiency.? Patient is a poor historian, is very helpul with information.? reports that the patient fell about 1 month ago and landed in a bathtub.? Did suffer an injury to his back.? Was seen in urgent care for abrasions to his hand. is DPOA. CXR reviewed and shows a 25 to 30 % pneumothorax. Labs reviewed and are unremarkable Review of Systems Constitutional Constitutional: Denies fever(s), Denies night sweats, Reports weakness (chronic) and Reports weight loss Eyes Eyes: Denies change in vision Cardiovascular Cardiovascular: Reports as per HPI, Reports chest pain, Denies irregular heart rhythm, Denies palpitations and Reports dyspnea Respiratory Respiratory: Reports as per HPI and Reports dyspnea Gastrointestinal Gastrointestinal: Reports system reviewed and no additional complaints, except as documented, Denies dyspepsia and Denies heartburn Genitourinary Genitourinary: Reports system reviewed and no additional complaints, except as documented Musculoskeletal Musculoskeletal: Reports system reviewed and no additional complaints, except as documented Integumentary/Breasts Skin/Breast: Reports system reviewed and no additional complaints, except as documented Neurologic Neurologic: Reports system reviewed and no additional complaints, except as documented, Reports memory loss and Reports weakness (chronic) Psychiatric Psychiatric: Reports as per HPI, Reports anxiety and Reports memory loss Endocrine Endocrine: Denies palpitations PFSH All Active Problems (Updated 11/14/21 @ 16:40 by Yoli Carrera MD) Pneumothorax on right (Acute) Palliative care patient (Acute) Dysphagia (Acute) Intertrigo (Acute) Ambulatory dysfunction (Acute) Weakness (Acute) Weight loss (Acute) Pulmonary embolism (Acute) on eliquis AV block, 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) Dementia (Chronic) ADHD (attention deficit hyperactivity disorder), 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) Chronic anticoagulation (Chronic) for pulmonary embolism- on embolism PVD (peripheral vascular disease) (Chronic) BPH (benign prostatic hyperplasia) (Chronic) Mitral insufficiency (Chronic) Varicose veins of lower extremity (Chronic) Peripheral venous insufficiency (Chronic) Heart murmur, systolic (Chronic 02/05/18) Generalized osteoarthrosis (Chronic) mostly when it is cold Medical History (Updated 11/14/21 @ 16:40 by Yoli Carrera MD) Alzheimer disease Carpal tunnel syndrome (02/16/11) DVT (deep venous thrombosis) Essential hypertension (04/07/13) when obese GERD (gastroesophageal reflux disease) Hypertension 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 Brother Diabetes Heart disease Brother Heart disease Social History Smoking/Tobacco Use Status: Former Tobacco Use tobacco type: cigarettes Quit Date: 07/09/78 Second Hand Exposure: Yes Smoking risk assessment performed?: Yes Alcohol Intake: never Drug use: Never Substance use type: does not use Caregiver/Support person: Yes Household members: spouse and children Housing: house Number of Children: 2 Do you need help understanding health information?: Always Pets and animals: No (Rabbit) Sexually active: No Do you think of yourself as: straight/heterosexual Current gender identity: male What is your relationship status?: How often do you talk on the phone with friends or family?: once per week How often do you get together with friends or relatives?: once per week How often do you attend jainism or congregational services?: 4 or more times per year Do you belong to any clubs or organized social groups?: no Panel score (0-1 are the most socially isolated patients): 2 What type of physical activity do you participate in: walking Duration: < 15 minutes/day Frequency: daily Mikaela/Anglican: Moravian Seatbelt use: always Drive intox or ride w/intox milk wagon driver: No Do you feel safe in your relationship?: Yes Meds Allergies and Home Medications Allergies Allergy/AdvReac Type Severity Reaction Status Date / Time gluten Allergy Intermediate Verified 11/14/21 14:20 peanut AdvReac Mild DIARRHEA Verified 11/14/21 14:20 Home Medications Medication Instructions Recorded Confirmed Type cyanocobalamin (vitamin B-12) 1,000 mcg PO DAILY 07/30/18 11/14/21 History 1,000 mcg tablet,extended release (Vitamin B-12 ER) aspirin 81 mg tablet,delayed 81 mg PO DAILY 06/04/19 11/14/21 History release (Adult Aspirin Regimen) glucosamine sulfate 1,000 mg 2,000 mg PO BID cap 10/28/20 11/14/21 History capsule cholecalciferol (vitamin D3) 50 50 mcg PO DAILY 12/01/20 11/14/21 History mcg (2,000 unit) capsule apixaban 5 mg tablet 5 mg PO BID #180 tab 05/13/21 11/14/21 Rx finasteride 5 mg tablet (Proscar) 5 mg PO DAILY #90 tab-cap 05/13/21 11/14/21 Rx prednisolone acetate 1 % eye 1 drp OPHTHALMIC (EYE) DAILY ml 07/26/21 11/14/21 History drops,suspension valacyclovir 500 mg tablet 500 mg PO DAILY #90 tab 10/03/21 11/14/21 Rx sertraline 50 mg tablet 50 mg PO DAILY #30 tab 11/11/21 11/14/21 Rx Exam Const General: comfortable, no acute distress and frail appearing [facility] Head: normocephalic and atraumatic Chest Other: tender to palpation over the right chest wall Resp Effort & Inspection: normal respiratory effort Auscultation: clear to auscultation bilaterally and breath sounds absent (right apical) Cardio Rate: regular rate Rhythm: regular rhythm Results Imaging Chest x-ray: image reviewed Labs Result diagrams: 11/14/21 14:30 11/14/21 14:30 Labs: Laboratory Results - last 24 hr 11/14/21 11/14/21 11/14/21 14:30 14:30 14:30 WBC 6.49 RBC 4.35 L Hgb 14.2 Hct 44.2 MCV 102 H MCH 32.6 MCHC 32.1 RDW 12.7 Plt Count 145 MPV 11.6 H Immature Gran % 0.3 Neutrophils % 72.2 Lymphocytes % 12.9 Monocytes % 10.5 Eosinophils % 3.2 Basophils % 0.9 Nucleated RBC % 0.0 Absolute Neutrophils 4.68 Absolute Lymphocytes 0.84 L Absolute Monocytes 0.68 Absolute Eosinophils 0.21 Absolute Basophils 0.06 D-Dimer 250 Sodium 137 Potassium 4.6 Chloride 100 Carbon Dioxide 34.8 H Anion Gap 2.2 L BUN 17 Creatinine 0.8 Estimated GFR/1.73 m2 >= 60.00 Glucose 112 H Calcium 9.0 Magnesium 2.2 Total Bilirubin 0.7 AST 14 L ALT 15 L Alkaline Phosphatase 81 Troponin I < 50 Total Protein 7.8 Albumin 3.3 L COVID-19 Source 11/14/21 15:35 WBC RBC Hgb Hct MCV MCH MCHC RDW Plt Count MPV Immature Gran % Neutrophils % Lymphocytes % Monocytes % Eosinophils % Basophils % Nucleated RBC % Absolute Neutrophils Absolute Lymphocytes Absolute Monocytes Absolute Eosinophils Absolute Basophils D-Dimer Sodium Potassium Chloride Carbon Dioxide Anion Gap BUN Creatinine Estimated GFR/1.73 m2 Glucose Calcium Magnesium Total Bilirubin AST ALT Alkaline Phosphatase Troponin I Total Protein Albumin COVID-19 Source Nasal/Nares Last Vital Signs Temp 97.2 F L 11/14/21 14:14 Pulse 83 11/14/21 14:14 Resp 20 11/14/21 16:13 BP 114/78 11/14/21 14:14 Pulse Ox 99 11/14/21 16:13 Procedures Chest Tube Chest Tube 1: Chest tube location: Mid-Axillary Chest (5th intercostal space on the right) Size of tube: 14 Chest tube procedure: Yes betadine prep and sterile drapes applied Tube sutured to skin: Yes Sterile dressing applied: Yes Anesthesia: 1% Lidocaine w/ Epi Volume anesthetic (ml): 10 Incision made with: #11 blade Post procedure: sutured to skin and sterile dressing applied Penny of air heard: Yes Tube Drainage: none Post procedure CXR?: Yes Patient tolerated procedure: Yes Progress: Pre-op Dx: Rt. traumatic peumothorax Post-op Dx: same Surgeon: Nadeem Carrera MD Anesthesia: 1% Lidocaine with epi Blood loss: 3 Specimen: none Complications: no immediate complications Procedure: After informed consent was obtained the patient was placed in a supine position. The skin was then prepped and draped in a sterile surgical fashion. Local anesthetic was injected into the dermis and subcutaneous tissue over the 5th intercostal space. An incision was made with an 11 blade. A 14 Fr. pigtail catheter chest tube was then placed in a standrad fashion without difficulty. There was a penny of air as the chest tube was placed. Oncein place it was secured to the skin with a silk suture. The skin was cleaned and dried and a sterile dressing was applied around the tube. The patient tolerated the procedure well and there were no immediate complications. A stat CXR was ordered and is pending at this time..
[2021-11-14 16:48] LABS: COVID-19 PCR Negative (Negative)
--- NOTE | 2021-11-14 17:05 | DI.RAD_ITS ---
Exam(s) XR PORTABLE CHEST AP EXAM: XR PORTABLE CHEST AP CLINICAL HISTORY: s/p chest tube placement TECHNIQUE: 2D digital imaging was performed. COMPARISON: CR XR CHEST 2V PA LATERAL from 11/14/2021 FINDINGS: The right chest tube has been placed. There has been significant re-expansion of the right pneumotho rax with tiny residual apical pneumothorax. Underlying fibrotic changes are noted. No focal consoli dation or effusion. IMPRESSION: Near complete re-expansion of the lung status post right chest tube. DATA REPOSITORY: RADIATION DOSE DELIVERED:
--- NOTE | 2021-11-14 17:15 | DI.VRAD_ITS ---
PROCEDURE INFORMATION: Exam: XR Chest Exam date and time: 11/14/2021 4:52 PM Age: 66 years old Clinical indication: Other: Chest tube placement TECHNIQUE: Imaging protocol: XR of the chest. Views: 1 view. COMPARISON: CR XR CHEST 2V PA LATERAL 11/14/2021 2:57 PM FINDINGS: Tubes, catheters and devices: Pigtail catheter terminates in the right lung base.. Lungs: Diffuse interstitial densities throughout the lung mccall may represent chronic lung changes or interstitial edema.. Pleural spaces: No significant pneumothorax is identified. Heart/Mediastinum: Stable cardiac silhouette Bones/joints: Unremarkable. IMPRESSION: 1. Pigtail catheter terminates in the right lung base.. 2. No significant pneumothorax is identified. 3. Diffuse interstitial densities throughout the lung mccall may represent chronic lung changes or interstitial edema.. Dictated and Authenticated by: Janie Vaughan MD. Ordering:KRISTOFER Garcia MD
[2021-11-14] MEDS: Lidocaine 1% Multi-Dose W/EPI 1/100,000 50 ML VIAL (18:15)
[2021-11-14 18:49] LABS: Troponin I < 50 ng/L (<or=60)
[2021-11-14] MEDS: Enoxaparin 40 MG/0.4 ML SYR SC (19:22)
[2021-11-14] MEDS: Docusate Sodium 100 MG CAP PO (20:37)
[2021-11-14] MEDS: Acetaminophen 325 MG TAB 650 MG PO (22:30)
[2021-11-15] VITALS (11 sets, daily range): BP systolic 113–137; BP diastolic 70–82; PULSE 52–62; RESP 16–20; TEMP 35.8–37.3; O2SAT 96–100
[2021-11-15] MEDS: Enoxaparin 40 MG/0.4 ML SYR SC (06:11)
[2021-11-15 06:33] LABS: Platelet Count 116 10^3/uL (130-400)
--- NOTE | 2021-11-15 08:00 | DI.RAD_ITS ---
Exam(s) XR PORTABLE CHEST AP POST LINE EXAM: XR PORTABLE CHEST AP POST LINE CLINICAL HISTORY: f/u chest tube. TECHNIQUE: 2D digital imaging was performed. COMPARISON: CR,XR XR PORTABLE CHEST AP from 11/14/2021 CR XR CHEST 2V PA LATERAL from 11/14/2021 FINDINGS: Single AP portable view. Heart size is upper normal. The mediastinum is not widened. Position of the right chest tube is basically unchanged from yesterday and the right lung is mostly r e-expanded with remaining less than 10 percent pneumothorax. Interstitial disease is again noted throughout both lung mccall. No pleural effusions. No pulmonary edema. No Dale B lines. There is nasal oxygen tubing on the left side noted. IMPRESSION: Right lung remains mostly re-expanded, approximately 10 percent remaining right pneumothorax.Right ch est tube remains in satisfactory position. Chronic appearing interstitial lung disease. No pleural effusions. DATA REPOSITORY: RADIATION DOSE DELIVERED: All CT scans at this facility use at least one of these dose optimization techniques: automated exposure control; mA and/or kV adjustment per patient size (includes targeted e xams where dose is matched to clinical indication); or iterative reconstruction.
[2021-11-15] MEDS: Docusate Sodium 100 MG CAP PO ×3 (08:26→20:22)
[2021-11-15] MEDS: Finasteride 5 MG TAB PO (08:26)
[2021-11-15] MEDS: valACYclovir 500 MG TAB PO (08:26)
[2021-11-15] MEDS: Sertraline 50 MG TAB PO (08:26)
[2021-11-15] MEDS: MORPHine 2 MG/ML SYR 1 MG IVP (09:01)
--- NOTE | 2021-11-15 09:40 | W.PM.PROGNOT ---
Date of Service Date of service: 11/15/21 Time of Service: 09:40 Assessment and Plan Assessment and plan (1) Pneumothorax on right: Status: Acute Assessment and plan: Chest tube in place. No air leak noted. Denies SOB or Chest pain pain well controlled Encouraged activity OOB, sitting in the chair and ambulation. -14:00. Called by Rn to see pt- re bleeding. Pt went to toilet and afterwards RN's noted bleeding. Prob about 40cc from PTX catheter site. Pressure held. No active bleeding or hematoma noted. Pt has no air leak and no PTX on XR. place to water seal. -currently off of apixaban x 24 hrs. Hold lovenox and asa today. Resume in am if H/H & plt are stable. -Will have PT evaluate for stability/fall risk -nutritional risk. Appears to have lost significant wt recently. (2) Palliative care patient: Status: Acute (3) Ambulatory dysfunction: Status: Acute (4) Dementia: Status: Chronic Qualifiers: Alzheimer's disease onset: other onset Dementia behavioral disturbance: without behavioral disturbance Dementia type: Alzheimer's disease Qualified Code(s): G30.8 - Other Alzheimer's disease; F02.80 - Dementia in other diseases classified elsewhere without behavioral disturbance (5) ADHD (attention deficit hyperactivity disorder), inattentive type: Status: Chronic (6) Pulmonary embolism: Status: Acute Assessment and plan: Hold apixiban. Lovenox 40 mg BID while in house Subjective Subjective Interval history since last seen: Patient reports that he did not get much sleep last night, but otherwise feels well. Denies any SOB, chest pain or discomfort. He is eager to eat breakfast. Exam Const General: cooperative, healthy appearing and comfortable Orientation: alert and oriented x3 Resp Effort & Inspection: normal respiratory effort, no audible wheezes and no cough Other: Chest tube in place. No air leak observed during conversation or coughing. Objective Last Vital Signs Temp 35.8 C L 11/15/21 08:12 Pulse 53 L 11/15/21 08:12 Resp 16 11/15/21 08:12 BP 128/77 11/15/21 08:12 Pulse Ox 99 11/15/21 08:12 Laboratory Results - last 24 hr 11/14/21 11/14/21 11/14/21 14:30 14:30 14:30 WBC 6.49 RBC 4.35 L Hgb 14.2 Hct 44.2 MCV 102 H MCH 32.6 MCHC 32.1 RDW 12.7 Plt Count 145 MPV 11.6 H Immature Gran % 0.3 Neutrophils % 72.2 Lymphocytes % 12.9 Monocytes % 10.5 Eosinophils % 3.2 Basophils % 0.9 Nucleated RBC % 0.0 Absolute Neutrophils 4.68 Absolute Lymphocytes 0.84 L Absolute Monocytes 0.68 Absolute Eosinophils 0.21 Absolute Basophils 0.06 D-Dimer 250 Sodium 137 Potassium 4.6 Chloride 100 Carbon Dioxide 34.8 H Anion Gap 2.2 L BUN 17 Creatinine 0.8 Estimated GFR/1.73 m2 >= 60.00 Glucose 112 H Calcium 9.0 Magnesium 2.2 Total Bilirubin 0.7 AST 14 L ALT 15 L Alkaline Phosphatase 81 Troponin I < 50 Total Protein 7.8 Albumin 3.3 L COVID-19 Source SARS-CoV-2 (PCR) 11/14/21 11/14/21 11/15/21 15:35 18:11 05:34 WBC RBC Hgb Hct MCV MCH MCHC RDW Plt Count 116 L MPV Immature Gran % Neutrophils % Lymphocytes % Monocytes % Eosinophils % Basophils % Nucleated RBC % Absolute Neutrophils Absolute Lymphocytes Absolute Monocytes Absolute Eosinophils Absolute Basophils D-Dimer Sodium Potassium Chloride Carbon Dioxide Anion Gap BUN Creatinine Estimated GFR/1.73 m2 Glucose Calcium Magnesium Total Bilirubin AST ALT Alkaline Phosphatase Troponin I < 50 Total Protein Albumin COVID-19 Source Nasal/Nares SARS-CoV-2 (PCR) Negative
--- NOTE | 2021-11-15 10:56 | PDOC.CMIN ---
- If Service Date Differs Date of service: 11/15/21 Time of Service: 10:56 Care Management Initial Assess REASON FOR HOSPITALIZATION:: Traumatic Pneumothorax PAST MEDICAL HISTORY/PAST SURGICAL HISTORY:: Medical History (Updated 11/14/21 @ 16:40 by Yoli Carrera MD). Alzheimer disease. Carpal tunnel syndrome (02/16/11). DVT (deep venous thrombosis). Essential hypertension (04/07/13). when obese. GERD (gastroesophageal reflux disease). Hypertension. 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 Paroxysmal SVT (supraventricular tachycardia). Surgical History (Updated 11/14/21 @ 16:35 by Yoli Carrera MD). IVC filter (~2008). 2008. Status post appendectomy. age 10 PREVIOUS FUNCTIONAL STATUS/SOCIAL/FAMILY SUPPORTS:: Bharathi resides with his and children in [place], [place]. He has a caregiver who comes into the home once per week. Per engineer/conductor, Bharathi requires total assistance with bathing, dressing and toileting and some assistance with ambulation as well. ADVANCE DIRECTIVES:: [facility] on file, Leandra as agent. Has patient been provided with info about the portal/API?: Yes Did the patient sign up for the portal?: Yes CODE STATUS:: Full Code PRIMARY CARE PHYSICIAN:: Leonor Rose POTENTIAL DISCHARGE NEEDS:: New home health services anticipated-[facility] notified. Roster not noted to have current service supports. PATIENT/FAMILY EDUCATION NEEDS:: Review of discharge instructions, discuss [employer]. ANTICIPATED BARRIERS TO DISCHARGE:: None identified at this time. TRANSPORTATION:: Via private vehicle with his family. PLAN:: Anticipate Bharathi will return home when ready per MD with new orders for home health RN/PT/OT/NETWORK SUPPORT MANAGER. He will transport via private vehicle with his family.
--- NOTE | 2021-11-15 16:00 | DI.RAD_ITS ---
Exam(s) XR PORTABLE CHEST AP EXAM: XR PORTABLE CHEST AP CLINICAL HISTORY: PTX. TECHNIQUE: 2D digital imaging was performed. COMPARISON: CR XR PORTABLE CHEST AP POST LINE from 11/15/2021 FINDINGS: Single AP portable view. Position of the right chest tube is unchanged from earlier today. Right lung remains mostly re-expan ded with less than 10 percent remaining pneumothorax, unchanged from earlier today. Interstitial disease throughout both lung mccall is unchanged. Heart size unchanged. Mediastinum not widened or shifted. IMPRESSION: As above. No radiographic change compared to earlier today. DATA REPOSITORY: RADIATION DOSE DELIVERED: All CT scans at this facility use at least one of these dose optimization techniques: automated exposure control; mA and/or kV adjustment per patient size (includes targeted e xams where dose is matched to clinical indication); or iterative reconstruction.
[2021-11-15] MEDS: Protein Nutritional Supplement 16 GM 1 OUNCE PACKET PO (20:22)
[2021-11-15] MEDS: Normal Saline Flush 10 ML SYR IVP (20:22)
[2021-11-16] VITALS (7 sets, daily range): BP systolic 116–149; BP diastolic 76–82; PULSE 55–80; RESP 16–19; TEMP 36.2–36.6; O2SAT 94–97
[2021-11-16] MEDS: Acetaminophen 500 MG TAB 1000 MG PO ×3 (01:25→18:04)
[2021-11-16 07:06] LABS: Abs Immature Grans 0.01 10^3/uL (0.0-0.06); Absolute Basophil Count 0.04 10^3/uL (0.0-0.2); Absolute Eosinophil Count 0.23 10^3/uL (0.0-0.7); Absolute Lymphocyte Count 0.88 10^3/uL (1.2-3.4); Absolute Monocyte Count 0.67 10^3/uL (0.1-0.8); Absolute Neutrophil Count 3.38 10^3/uL (1.2-6.7); Basophils % 0.8; Eosinophils % 4.4; HCT 39.4 % (40.0-50.0); HGB 12.6 g/dL (13.5-17.5); Immature Grans % 0.2; Lymphocytes % 16.9; MCH 32.8 pg (27.0-33.0); MCV 103 fL (80-95); MPV 11.2 fL (8.0-11.0); Monocytes % 12.9; Neutrophils % 64.8; Platelet Count 110 10^3/uL (130-400); RBC 3.84 10^6/uL (4.36-5.78); RDW 12.6 % (11.8-14.1); RDW-SD 47.8 fL; WBC 5.21 10^3/uL (4.4-10.8)
--- NOTE | 2021-11-16 08:30 | DI.RAD_ITS ---
Exam(s) XR PORTABLE CHEST AP EXAM: XR PORTABLE CHEST AP CLINICAL HISTORY: PTX TECHNIQUE: 2D digital imaging was performed. COMPARISON: CR XR PORTABLE CHEST AP from 11/15/2021 FINDINGS: No change in right chest tube. No visible pneumothorax. Underlying fibrotic changes. The no effusi ons.. IMPRESSION: No visible pneumothorax. DATA REPOSITORY: RADIATION DOSE DELIVERED:
[2021-11-16] MEDS: Docusate Sodium 100 MG CAP PO (08:41)
[2021-11-16] MEDS: Finasteride 5 MG TAB PO (08:41)
[2021-11-16] MEDS: Protein Nutritional Supplement 16 GM 1 OUNCE PACKET PO ×2 (08:42→14:05)
[2021-11-16] MEDS: Polyethylene Glycol 3350 17 GM PACKET PO (08:42)
[2021-11-16] MEDS: Sertraline 50 MG TAB PO (08:43)
[2021-11-16] MEDS: valACYclovir 500 MG TAB PO (08:43)
--- NOTE | 2021-11-16 09:26 | IN_ITS ---
Date of service: 11/16/21 Time of Service: 09:26 PT Notes Visit Reasons: Tramatic pneumothorax Physical Therapy Inpatient Initial Evaluation Date: 11/16/2021 Referring Doctor: Debra Spring MD PT Orders: PT CONSULT: fall risk/max 2 assit to toilet/?safe to go home Precautions: Fall. Standard. Activity as tolerated. Patient Profile/Admitting Diagnosis: Patient is 66-year-old palliative care male patient who presented to the ED on 11/14/2021 with shortness of breath, chest discomfort that worsened since his fall the past month. Patient is diagnosed with a right pneumothorax, amatory dysfunction, and pulmonary embolism. 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) Chronic anticoagulation (Chronic) for pulmonary embolism- on embolism PVD (peripheral vascular disease) (Chronic) BPH (benign prostatic hyperplasia) (Chronic) Mitral insufficiency (Chronic) Varicose veins of lower extremity (Chronic) Peripheral venous insufficiency (Chronic) Heart murmur, systolic (Chronic 02/05/18) Generalized osteoarthrosis (Chronic) mostly when it is cold Medical History?(Updated 11/14/21 @ 16:40 by Yoli Carrera MD) Alzheimer disease Carpal tunnel syndrome (02/16/11) DVT (deep venous thrombosis) Essential hypertension (04/07/13) when obese GERD (gastroesophageal reflux disease) Hypertension 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 Independent with indoor and outdoor ambulation with single-point cane. Equipment Owned/DME: [facility] Subjective: Reports fatigue after walking with the nurse Jennifer treatment from a toilet seat using front-wheeled walker. Quite unsure of his responses stress test that PT asks his too for accuracy. Objective: General Observation: Seated at edge of bed, nurse Jennifer present in room with. Chest tube in place. Cachexic. Mental Status: Alert and oriented as to person, place, time, and purpose. Able to pay attention, focus, and respond appropriately. Pain: Reports moderate pain in her right chest area at rest and with movement. Vital Signs: WNL as closely monitored by nursing staff ROM: Right Upper Extremity: Shoulder Flexion lacks 50% of available range of motion. Shoulder abduction lacks 50% of available range of motion. Elbow flexion WFL. Wrist flexion WFL. Functional opening and closing of hand WFL. Left Upper Extremity: Shoulder Flexion lacks 50% of available range of motion. Shoulder abduction lacks 50% of available range of motion. Elbow flexion WFL. Wrist flexion WFL. Functional opening and closing of hand WFL. Right Lower Extremity: Hip flexion lacks 50% of of available range of motion. Hip abduction lacks 50% of of available range of motion. Knee flexion 20 degrees to 90 degrees. Knee extension -20 degrees. Ankle dorsiflexion to neutral only. Ankle plantarflexion WFL. Left Lower Extremity: Hip flexion lacks 50% of of available range of motion. Hip abduction lacks 50% of of available range of motion. Knee flexion 20 degrees to 90 degrees. Knee extension -20 degrees. Ankle dorsiflexion to neutral only. Ankle plantarflexion WFL. Strength: Right Upper Extremity: Shoulder flexors 3-/5. Shoulder abductors 3-/5. Elbow flexors 3-/5. Elbow extensors 5/5. Supervisor [employer] Testing weak but functional. Left Upper Extremity: Shoulder flexors 3-/5. Shoulder abductors 3-/5. Elbow flexors 3-/5. Elbow extensors 5/5. Supervisor [employer] Testing weak but functional. Right Lower Extremity: Hip flexors 3-/5. Hip abductors 3-/5. Knee flexors 3-/5. Knee extensors 3-/5. Ankle dorsiflexors 3-/5. Ankle plantarflexors 4-/5. Left Lower Extremity: Hip flexors 3-/5. Hip abductors 3-/5. Knee flexors 3-/5. Knee extensors 3-/5. Ankle dorsiflexors 3-/5. Ankle plantarflexors 4-/5. Bed Mobility/Transfers: Sit to supine minimal assist of 2 Sit to stand minimal assist Stand to sit minimal assist Bed to toilet seat minimal assist using front wheel walker Toilet seat to bed minimal assist using front wheel walker Gait: Patient tolerated short distance ambulation from bedside recliner to toilet seat and then from toilet seat back to bed with nurse Jennifer immediately prior to PT coming into the room. Patient declined to walk any further due to extreme f atigue. Balance: Static Sitting: Good Dynamic Sitting: Fair Static Standing: Fair Dynamic Standing: Poor Special Tests: Mobility Limitations Standardized Measure [facility] AM-PAC 6 clicks Basic Mobility Inpatient Short Form: Raw Score: 14 CMS Score: 61% deficit Informed Consent/Education: Patient was instructed in purpose of PT consult and plan of care. Agreeable to proceed with established PT POC to achieve personal goals. Assessment: Elisa demonstrates significant functional mobility decline, decreased activity tolerance, and soreness on the right chest due to admitting diagnoses requiring assistance of 1 person the use of a front wheel walker for all transfers and ambulation test performance. Patient presents with clinical signs and symptoms consistent with current/admitting diagnoses that have resulted to mobility limitations, gait instability, generalized weakness, and overall ADL decline as demonstrated by the following impairment level findings: 1. Decreased strength to B UE/LEmajor muscle groups 2. Impaired sitting/standing balance 3. Impaired activity tolerance 4. Limitation of joint range of motion in major BUE and LE joints 5. Shortness of breath 6. Swelling Impairments are contributing to the following functional limitations: 1. Decline in bed mobility skills 2. Decline in transfer skills 3. Difficulty with ambulation without assistive device and physical assistance 4. Increased completion time for mobility ADL performance 5. Increased risk for falls 6. Difficulty with managing steps alone safely Patient is assessed as a [id number] moderatecomplexity based on the following: History: 66-year-old male with past medical history as indicated above Examination: Demonstrable impairment in strength, balance, and mobility level with underlying impairments and functional limitations as exhibited above as well as deficit score of 61% utilizing the [facility] Mobility Inpatient Short Form Presentation: Evolving Decision Makin moderate complexity Goals: Goals X1 week 1. Supine-Sit independent 2. Sit-Supine independent 3. Sit-Stand independent 4. Stand-Sit independent with FWW 5. Bed-Chair independent with FWW 6. Chair-Bed independent with FWW 7. Independent gait on level surface with use of FWW for at least 100 feet without report of pain nor dyspnea 8. Independent stair negotiation while holding onto B rails for at least 5 steps without report of pain nor dyspnea 9. Independent with home exercise program 10. Good static and dynamic standing balance/tolerance Plan of Care/Treatment Plan: 1-2x/day, 7 days/week x 1 week. Plan of care has been reviewed with the SERGEANT [employer]SI[employer] CREW[employer] providing the service under Physical Therapy direction. Initiate Physical Therapy intervention for pain management as needed, strengthening, bed mobility, transfers, gait, stairs, balance training, and use of assistive device. DISCHARGE RECOMMENDATIONS: [] Home with no services [] [X] Home with services. Home when medically cleared by hospitalist. Patient will benefit from home health PT services in order to progress mobility level using least restrictive assistive ambulatory device, assess home safety, identify additional equipment needs, and establish a functional maintenance program that will increase ability of patient to remain at home. [] Home with outpatient PT [] [] SNF for continued rehabilitation [] [] [facility] [] [] SNF versus LTC based on ability to participate and progress [] TREATMENT CODE/TIME: 95697 x 19 minutes beginning at 9:26 AM. Thank you for the opportunity to participate in the care of this patient. Sharonda Andrade PT, DPT, CLT [facility] [place], [place]
--- NOTE | 2021-11-16 10:32 | W.PM.PROGNOT ---
Date of Service Date of service: 11/16/21 Time of Service: 10:32 Assessment and Plan Assessment and plan (1) Pneumothorax on right: Status: Acute Assessment and plan: Chest tube in place on water seal Denies SOB or Chest pain pain well controlled Encouraged activity OOB, sitting in the chair and ambulation. Chest Xray no signs of pneumothorax this morning Will pull chest tube later today. (2) Palliative care patient: Status: Acute (3) Ambulatory dysfunction: Status: Acute (4) Dementia: Status: Chronic Qualifiers: Dementia type: Alzheimer's disease Alzheimer's disease onset: other onset Dementia behavioral disturbance: without behavioral disturbance Qualified Code(s): G30.8 - Other Alzheimer's disease; F02.80 - Dementia in other diseases classified elsewhere without behavioral disturbance (5) ADHD (attention deficit hyperactivity disorder), inattentive type: Status: Chronic (6) Pulmonary embolism: Status: Acute Assessment and plan: Hold apixiban. Lovenox 40 mg BID while in house Subjective Subjective Interval history since last seen: Patient denies any chest pain or SOB this morning. He is lying in bed, with his eyes closed. Exam Const General: cooperative, healthy appearing and comfortable Orientation: alert and awake Resp Effort & Inspection: normal respiratory effort, no audible wheezes and no cough Other: Chest tube in place on water seal. Objective Last Vital Signs Temp 36.2 C L 11/16/21 08:34 Pulse 80 11/16/21 08:34 Resp 17 11/16/21 08:34 BP 116/76 11/16/21 08:34 Pulse Ox 95 11/16/21 09:35 Laboratory Results - last 24 hr 11/16/21 06:40 WBC 5.21 RBC 3.84 L Hgb 12.6 L Hct 39.4 L MCV 103 H MCH 32.8 MCHC 32.0 RDW 12.6 Plt Count 110 L MPV 11.2 H Immature Gran % 0.2 Neutrophils % 64.8 Lymphocytes % 16.9 Monocytes % 12.9 Eosinophils % 4.4 Basophils % 0.8 Nucleated RBC % 0.0 Absolute Neutrophils 3.38 Absolute Lymphocytes 0.88 L Absolute Monocytes 0.67 Absolute Eosinophils 0.23 Absolute Basophils 0.04
--- NOTE | 2021-11-16 11:51 | CMPROGNOTE_ITS ---
- If Service Date Differs Date of service: 11/16/21 Time of Service: 11:51 Care Management Progress Note S/O: A: 66 year old male admitted to [facility] on 11/15/21 for Traumatic Pneumothorax. P:Anticipate Bharathi will return home when ready per MD with new orders for home health RN/PT/OT/STORE HAND. He will transport via private vehicle with his family.
--- NOTE | 2021-11-16 11:51 | PDOC.CMPRO ---
- If Service Date Differs Date of service: 11/16/21 Time of Service: 11:51 Care Management Progress Note S/O: A: 66 year old male admitted to [facility] on 11/15/21 for Traumatic Pneumothorax. P:Anticipate Bharathi will return home when ready per MD with new orders for home health RN/PT/OT/PHARMACY MANAGER. He will transport via private vehicle with his family.
--- NOTE | 2021-11-16 13:00 | DI.RAD_ITS ---
Exam(s) XR PORTABLE CHEST AP EXAM: XR PORTABLE CHEST AP CLINICAL HISTORY: s/p chest tube removal TECHNIQUE: 2D digital imaging was performed. COMPARISON: CR XR PORTABLE CHEST AP from 11/16/2021 FINDINGS: The right chest tube has been removed. There is a tiny, few millimeter, right apical pneumothorax. Underlying fibrotic changes are again noted. No gross evidence of a superimposed infiltrate. No eff usion. Heart size normal. IMPRESSION: Tiny right pneumothorax status post removal of right chest tube. DATA REPOSITORY: RADIATION DOSE DELIVERED:
--- NOTE | 2021-11-16 13:39 | W.PM.DS.N ---
Date of service: 11/16/21 Time of Service: 13:39 DS: Diagnosis Discharge Diagnosis (1) Pneumothorax on right: Status: Acute (2) Palliative care patient: Status: Acute (3) Ambulatory dysfunction: Status: Acute (4) Dementia: Status: Chronic (5) ADHD (attention deficit hyperactivity disorder), inattentive type: Status: Chronic (6) Pulmonary embolism: Status: Acute Discharge Plan Disposition Patient Disposition: HOME Condition: Stable Discharge Details Reason For Visit: Tramatic pneumothorax Admit Date/Time: 11/14/21 16:16 Admit Provider: Yoli Carrera Attending Provider: Yoil Carrera [facility] Hospital Course: 66 y/o male with a history of dementia presented to the ER with complaints of SOB. his reported he had been having difficulty taking deep breaths for a couple months after a fall, however on the day of the ER visit he was having increased chest discomfort. Patient was found t have a 25-30% right pneumothorax on CXR. This was treated with chest tube, this was on suction, followed by water seal. No signs of returning pneumothorax. Chest tube was removed, CXR completed 2 hours later showed a tiny pneumothorax. Patient's SOB and chest discomfort has resolved. Patient will d/c home with his . He will need to follow up with his PCP in 1-2 weeks. Home Meds and New Rx's Prescriptions: Continued cholecalciferol (vitamin D3) 50 mcg (2,000 unit) capsule 50 mcg PO DAILY 0RF cyanocobalamin (vitamin B-12) [Vitamin B-12] 1,000 mcg tablet extended release 1,000 mcg PO DAILY 0RF aspirin [Adult Aspirin Regimen] 81 mg tablet,delayed release (DR/EC) 81 mg PO DAILY 0RF glucosamine sulfate 1,000 mg capsule 2,000 mg PO BID 0RF Rx Instructions: administer with a meal finasteride [Proscar] 5 mg tablet 5 mg PO DAILY Qty: 90 4RF apixaban 5 mg tablet 5 mg PO BID Qty: 180 4RF prednisolone acetate 1 % drops,suspension 1 drp ophthalmic (eye) DAILY 0RF sertraline 50 mg tablet 50 mg PO DAILY Qty: 30 0RF valacyclovir 500 mg tablet 500 mg PO DAILY Qty: 90 4RF Discharge Instructions Additional Instructions: If you notice any return of your chest pain, pressure, shortness of breath or difficulty breathing please return to the ER for further evaluation. Please restart your Apixaban, starting tomorrow morning. Referrals: Leonor Rose NP [Primary Care Provider] - Activity:: Activity as Tolerated Equipment/Supplies:: No Equipment Needed Diet:: Normal Diet DS: Summary Time Spent with Patient providing and/or coordinating discharge services: Less than 30 minutes Status at Discharge Functional status at discharge: uses cane/walker Overall status at discharge: patient is back to baseline Mental Status: other Speech and Movement: speech and movement normal Mood: congruent mood and other Affect: normal affect Exam Const General: cooperative, healthy appearing and comfortable Orientation: alert and awake Resp Effort & Inspection: normal respiratory effort, no audible wheezes and no cough Auscultation: clear to auscultation bilaterally Psych Mental Status: other Speech and Movement: speech and movement normal Mood: congruent mood and other Affect: normal affect DS: Data Vitals/I&O Vitals and I&O: Vital Signs Temperature 36.2 C L 11/16/21 08:34 Temperature Source Tympanic 11/16/21 08:34 Pulse 80 11/16/21 08:34 Pulse Rhythm Regular 11/16/21 09:22 Pulse 70 11/14/21 20:30 Respiratory Rate 17 11/16/21 08:34 Respiratory Effort 11/16/21 09:22 Respiratory Depth Normal 11/16/21 09:22 Respiratory Pattern Normal 11/16/21 09:22 Blood Pressure 116/76 11/16/21 08:34 Blood Pressure Mean 94 11/14/21 19:31 Blood Pressure Position Sitting 11/14/21 14:14 Pulse Oximetry 94 11/16/21 11:34 Oxygen Delivery Method Room Air 11/16/21 11:34 Oxygen Flow Rate 0 11/16/21 11:34 Fraction of Inspired Oxygen (FIO2) 3 11/15/21 05:31 Pain Level 0 11/16/21 08:41 Comment 11/16/21 03:20 Intake & Output 11/15/21 11/16/21 11/16/21 18:59 06:59 18:59 Intake Total 540 / 1650 1110 / 1650 100 / 100 Output Total 400 / 1550 1150 / 1550 1000 / 1000 Balance 140 / 100 -40 / 100 -900 / -900 Intake: IV Oral 540 / 1640 1100 / 1640 100 / 100 Output: Urine 400 / 1550 1150 / 1550 1000 / 1000 Other: Urine Color Yellow Yellow Yellow Urine Appearance Clear Cloudy Cloudy Urine Odor None Normal Normal Stool Occult Blood Positive Stool Size Moderate Small Stool Characteristics Soft Soft Formed Voiding Methods Toilet Toilet Toilet Data Completed and Pending Labs on day of discharge: Labs from last 24 hours 11/16/21 06:40 WBC 5.21 RBC 3.84 L Hgb 12.6 L Hct 39.4 L MCV 103 H MCH 32.8 MCHC 32.0 RDW 12.6 Plt Count 110 L MPV 11.2 H Immature Gran % 0.2 Neutrophils % 64.8 Lymphocytes % 16.9 Monocytes % 12.9 Eosinophils % 4.4 Basophils % 0.8 Nucleated RBC % 0.0 Absolute Neutrophils 3.38 Absolute Lymphocytes 0.88 L Absolute Monocytes 0.67 Absolute Eosinophils 0.23 Absolute Basophils 0.04 PFSH All Active Problems (Updated 11/14/21 @ 16:40 by Yoli Carrera MD) Pneumothorax on right (Acute) Palliative care patient (Acute) Dysphagia (Acute) Intertrigo (Acute) Ambulatory dysfunction (Acute) Weakness (Acute) Weight loss (Acute) Pulmonary embolism (Acute) on eliquis AV block, 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) Dementia (Chronic) ADHD (attention deficit hyperactivity disorder), 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) Chronic anticoagulation (Chronic) for pulmonary embolism- on embolism PVD (peripheral vascular disease) (Chronic) BPH (benign prostatic hyperplasia) (Chronic) Mitral insufficiency (Chronic) Varicose veins of lower extremity (Chronic) Peripheral venous insufficiency (Chronic) Heart murmur, systolic (Chronic 02/05/18) Generalized osteoarthrosis (Chronic) mostly when it is cold Medical History (Updated 11/14/21 @ 16:40 by Yoli Carrera MD) Alzheimer disease Carpal tunnel syndrome (02/16/11) DVT (deep venous thrombosis) Essential hypertension (04/07/13) when obese GERD (gastroesophageal reflux disease) Hypertension 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 Brother Diabetes Heart disease Brother Heart disease Social History Smoking/Tobacco Use Status: Former Tobacco Use tobacco type: cigarettes Quit Date: 07/09/78 Second Hand Exposure: Yes Smoking risk assessment performed?: Yes Alcohol Intake: never Drug use: Never Substance use type: does not use Caregiver/Support person: Yes Household members: spouse and children Housing: house Number of Children: 2 Do you need help understanding health information?: Always Pets and animals: No (Rabbit) Sexually active: No Do you think of yourself as: straight/heterosexual Current gender identity: male What is your relationship status?: How often do you talk on the phone with friends or family?: once per week How often do you get together with friends or relatives?: once per week How often do you attend oriental orthodox or confucianist services?: 4 or more times per year Do you belong to any clubs or organized social groups?: no Panel score (0-1 are the most socially isolated patients): 2 What type of physical activity do you participate in: walking Duration: < 15 minutes/day Frequency: daily Mikaela/Mosque: Mormonism Seatbelt use: always Drive intox or ride w/intox warehouse driver: No Do you feel safe in your relationship?: Yes
--- NOTE | 2021-11-16 14:51 | PT.INDS ---
Date of service: 11/16/21 Time of Service: 14:51 PT Notes Visit Reasons: Tramatic pneumothorax Physical Therapy Inpatient Discharge Summary Date: 11/16/2021 Dates of Service: 11/16/2021 only Referring Doctor:? Debra Spring MD PT Orders: PT CONSULT: fall risk/max 2 assit to toilet/?safe to go home Precautions: Fall. Standard. Activity as tolerated. Patient Profile/Admitting Diagnosis:? Patient is 66-year-old palliative care male patient who presented to the ED on 11/14/2021 with shortness of breath, chest discomfort that worsened since his fall the past month.? Patient is diagnosed with a right pneumothorax, amatory dysfunction, and pulmonary embolism. 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) Chronic anticoagulation (Chronic) for pulmonary embolism- on embolism PVD (peripheral vascular disease) (Chronic) BPH (benign prostatic hyperplasia) (Chronic) Mitral insufficiency (Chronic) Varicose veins of lower extremity (Chronic) Peripheral venous insufficiency (Chronic) Heart murmur, systolic (Chronic 02/05/18) Generalized osteoarthrosis (Chronic) mostly when it is cold Medical History?(Updated 11/14/21 @ 16:40 by Yoli Carrera MD) Alzheimer disease Carpal tunnel syndrome (02/16/11) DVT (deep venous thrombosis) Essential hypertension (04/07/13) when obese GERD (gastroesophageal reflux disease) Hypertension 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 Independent with indoor and outdoor ambulation with single-point cane. Verbalized that he used to be a big kay but lost weight. Equipment Owned/DME: [facility] Subjective: Agreed to walking outside of room with FWW. States that will be bringing clothes for him so he could change to go home. Perkier this afternoon than he was this morning. Objective: General Observation: Supine in bed.? Chest tube removed. Cachexic. Mental Status: Alert and oriented as to person, place, time, and purpose. Able to pay attention, focus, and respond appropriately. Pain: Reports moderate pain in her right chest area at rest and with movement. Vital Signs: WNL as closely monitored by nursing staff ROM: Right Upper Extremity: ? Shoulder Flexion lacks 50% of available range of motion.? Shoulder abduction lacks 50% of available range of motion. Elbow flexion WFL. Wrist flexion WFL. Functional opening and closing of hand WFL. Left Upper Extremity:? Shoulder Flexion lacks 50% of available range of motion.? Shoulder abduction lacks 50% of available range of motion. Elbow flexion WFL. Wrist flexion WFL. Functional opening and closing of hand WFL. Right Lower Extremity: Hip flexion lacks 50% of of available range of motion. Hip abduction lacks 50% of of available range of motion. Knee flexion 20 degrees to 90 degrees.? Knee extension -20 degrees.? Ankle dorsiflexion to neutral only. Ankle plantarflexion WFL. Left Lower Extremity: Hip flexion lacks 50% of of available range of motion. Hip abduction lacks 50% of of available range of motion. Knee flexion 20 degrees to 90 degrees.? Knee extension -20 degrees.? Ankle dorsiflexion to neutral only. Ankle plantarflexion WFL. Strength: Right Upper Extremity: Shoulder flexors 3-/5. Shoulder abductors 3-/5. Elbow flexors 3-/5. Elbow extensors 5/5. Retail Advertising Sales Manager weak but functional. Left Upper Extremity: Shoulder flexors 3-/5. Shoulder abductors 3-/5. Elbow flexors 3-/5. Elbow extensors 5/5. Retail Advertising Sales Manager weak but functional. Right Lower Extremity: Hip flexors 3-/5. Hip abductors 3-/5. Knee flexors 3-/5. Knee extensors 3-/5. Ankle dorsiflexors 3-/5. Ankle plantarflexors 4-/5. Left Lower Extremity: Hip flexors 3-/5. Hip abductors 3-/5. Knee flexors 3-/5. Knee extensors 3-/5. Ankle dorsiflexors 3-/5. Ankle plantarflexors 4-/5. Bed Mobility/Transfers: Sit to supine minimal assist Sit to stand stand by assist Stand to sit stand by assist Gait: 50 feet using FWW with step through gait pattern. Trunk anteroflexed. Elizabeth decreased. Cues needed to stay within walker for safety. Balance: Static Sitting: Good Dynamic Sitting: Fair Static Standing: Fair Dynamic Standing: Poor Special Tests: Mobility Limitations Standardized Measure [facility] 6 clicks Basic Mobility Inpatient Short Form: Raw Score: 14 CMS Score: 61% deficit Assessment: Elisa demonstrates functional mobility decline, decreased activity tolerance, and soreness on the right chest due to admitting diagnoses requiring assistance of 1 person the use of a front wheel walker for all transfers and ambulation test performance.? Patient presents with clinical signs and symptoms consistent with current/admitting diagnoses that have resulted to mobility limitations, gait instability, generalized weakness, and overall ADL decline as demonstrated by the following impairment level findings: 1.? Decreased strength to B UE/LEmajor muscle groups 2.? Impaired sitting/standing balance 3.? Impaired activity tolerance 4.? Limitation of joint range of motion in major BUE and LE joints 5.? Shortness of breath 6.? Swelling Impairments are contributing to the following functional limitations: 1.? Decline in bed mobility skills 2.? Decline in transfer skills 3.? Difficulty with ambulation without assistive device and physical assistance 4.? Increased completion time for mobility ADL performance 5.? Increased risk for falls 6.? Difficulty with managing steps alone safely Goals: Goals X1 week 1. Supine-Sit independent NOT MET 2. Sit-Supine independent NOT MET 3. Sit-Stand independent NOT MET 4. Stand-Sit independent with FWW NOT MET 5. Bed-Chair independent with FWW NOT MET 6. Chair-Bed independent with FWW NOT MET 7. Independent gait on level surface with use of FWW for at least 100 feet without report of pain nor dyspnea NOT MET 8. Independent stair negotiation while holding onto B rails for at least 5 steps without report of pain nor dyspnea NOT MET 9. Independent with home exercise program NOT MET 10. Good static and dynamic standing balance/tolerance NOT MET DISCHARGE RECOMMENDATIONS: [] ? Home with no services [] [X] ? Home with services.? Home when medically cleared by hospitalist.? Patient will benefit from home health PT services in order to progress mobility level using least restrictive assistive ambulatory device, assess home safety, identify additional equipment needs, and establish a functional maintenance program that will increase ability of patient to remain at home. [] ? Home with outpatient PT [] [] ? SNF for continued rehabilitation [] [] ? Computing Systems Mechanic Care [] [] ? SNF versus LTC based on ability to participate and progress [] TREATMENT CODE/TIME: 98026 x 23 minutes beginning at 14:51 PM. Thank you for the opportunity to participate in the care of this patient. Sharonda Andrade PT, DPT, CLT [facility] [place], [place]
--- NOTE | 2021-11-16 15:03 | PDOC.HHF2F_ITS ---
Home Health Certification Home Health Certification: 1. Encounter Date and Reason I certify that Bharathi Mora was seen by Yoli Carrera MD on 11/16/21 and that I had a [id number] encounter with this patient that meets the physician face to face encounter requirements. 2. Clinical Findings Supporting Skilled Need and Homebound Status I certify that home health services are medically necessary, include either intermittent alf and/or physical/speech therapy, and that this pat ient is homebound in that absences from the home require considerable and taxing effort and are infrequent or of short duration, or are attributable to the need to receive medical care. [X] (a) Attached documentation from encounter provides clinical findings supporting skilled need and homebound status (including what assistance patient requires to leave the home). The encounter with the patient was in whole, or in part, for the following medical condition, which is the primary reason for home health care: Traumatic pneumothorax Peripheral Vascular Tech to assist with community resources Physical Therapy: Home with services.? Patient will benefit from home health PT services in order to progress mobility level using least restrictive assistive ambulatory device, assess home safety, identify additional equipment needs, and establish a functional maintenance program that will increase ability of patient to remain at home. Speech Therapy: Homebound:except for medical appointment as he is weak. 3. Certification and Authentication I certify that I composed the above information based on my clinical judgement relating to this patient's medical condition and, if applicable, clinical findings communicated to me by the NPP or inpatient physician who performed the Home Health Referral. All further orders will be obtained through Leonor Rose (Community Based Physician - PCP)
--- NOTE | 2021-11-16 16:13 | CMDISCH_ITS ---
- If Service Date Differs Date of service: 11/16/21 Time of Service: 16:13 LACE Index Scoring Tool - Questions: Length of Stay (in days): 2 Acuity (Admit via E.D.?): No Comorbidities: PVD, Dementia E.D. Visits: 1 - Answers: Total Score: 8 Risk of Readmission: Low Risk Care Management Discharge Reason for Hospitalization: Traumatic Pneumothorax Discharge Plan: Discharge home with New [facility] PT/OT/[facility]ER via private vehicle with . Follow up with community providers and discharge plan of care as prescribed. Bharathi has a follow up appointment with his PCP on 11/22/21 at 1020. Patient/Family Education Needs: Review discharge instructions, limitations, medications and plan to follow up with community providers. ask me three. Services Needed at Discharge: Home Health Care Services ([facility] OT, PT, [facility]ER)
== END 2021-11-16 18:45 | disposition home or self-care (01) | DRG 200 ==
LOC: ER 16:38 → MS 11-15 02:33
PROVIDERS: Family Medicine; Surgery; Admitting Provider Surgery; Emergency Provider Physician Assistant; PCP Nurse Practitioner; Visit Provider Surgery
DX: S27.0XXA Traumatic pneumothorax, initial encounter (principal); I47.1 Supraventricular tachycardia; Z86.711 Personal history of pulmonary embolism; Z79.01 Long term (current) use of anticoagulants; R26.2 Difficulty in walking, not elsewhere classified; I34.0 Nonrheumatic mitral (valve) insufficiency; I73.9 Peripheral vascular disease, unspecified; W18.2XXA Fall in (into) shower or empty bathtub, initial encounter; R13.10 Dysphagia, unspecified; R53.1 Weakness; R63.4 Abnormal weight loss; Z68.25 Body mass index [BMI] 25.0-25.9, adult; I44.0 Atrioventricular block, first degree; F90.0 Attention-deficit hyperactivity disorder, predominantly inattentive type; N40.0 Benign prostatic hyperplasia without lower urinary tract symptoms; I87.2 Venous insufficiency (chronic) (peripheral); I83.90 Asymptomatic varicose veins of unspecified lower extremity; M15.9 Polyosteoarthritis, unspecified; I10 Essential (primary) hypertension; K21.9 Gastro-esophageal reflux disease without esophagitis; Z86.718 Personal history of other venous thrombosis and embolism; G30.9 Alzheimer's disease, unspecified; F02.80 Dementia in other diseases classified elsewhere, unspecified severity, without behavioral disturbance, psychotic disturbance, mood disturbance, and anxiety; M1A.0710 Idiopathic chronic gout, right ankle and foot, without tophus (tophi)
CPT/HCPCS: 32554; 32551; 36415; 71045; 80053; 87635; 93005; 96372; 96374; 97162; 97530; 99222; 99232; 99238; 99285; J1650; 71046; 83735; 84484; 85025; 85049; 85379; 93010; J2060; J2270

== ENCOUNTER 2022-01-02 14:51 | Emergency (ER) | payer MEDICARE, MEDICAID, SELFPAY ==
[2022-01-02 14:55] VITALS: BP 122/64; PULSE 79; RESP 16; TEMP 36.9; O2SAT 93
--- NOTE | 2022-01-02 15:00 | DI.RAD_ITS ---
Exam(s) XR FOREARM LT EXAM: XR FOREARM LT CLINICAL HISTORY: pain to forearm, post trauma on sunday. TECHNIQUE: 2D digital imaging was performed. COMPARISON: No exams were available for comparison FINDINGS: Three views There is a subtle irregularity at the level of the most medial aspect of the coronoid process of the proximal ulna, possibly is subtle fracture site. Recommend dedicated elbow views. No findings more distally in the form bones. Vascular calcifications noted. IMPRESSION: DATA REPOSITORY: RADIATION DOSE DELIVERED:
--- NOTE | 2022-01-02 15:00 | DI.RAD_ITS ---
Exam(s) XR HAND LT COMPLETE EXAM: XR HAND LT COMPLETE CLINICAL HISTORY: direct blow to dorsum of hand. TECHNIQUE: 2D digital imaging was performed. COMPARISON: No exams were available for comparison FINDINGS: 3 views No evidence of acute fracture nor dislocation. Benign bone island noted the mid level of the middle phalanx of the 2nd-index finger. Degenerative changes in the DIP joints noted. No erosions. No oss eous lesions. No radiopaque foreign body. IMPRESSION: As above but no fractures evident DATA REPOSITORY: RADIATION DOSE DELIVERED:
--- NOTE | 2022-01-02 15:00 | DI.RAD_ITS ---
Exam(s) XR WRIST LT COMPLETE EXAM: XR WRIST LT COMPLETE CLINICAL HISTORY: trauma to hand/wrist on sunday. TECHNIQUE: 2D digital imaging was performed. COMPARISON: No exams were available for comparison FINDINGS: 3 views There is no evidence of fracture, dislocation, nor significant ulnar variance. Vascular calcificatio n is noted at the level of the wrist. Scaphoid unremarkable. Scapholunate distance is normal. No o bvious degenerative changes. IMPRESSION: No fracture evident. DATA REPOSITORY: RADIATION DOSE DELIVERED:
--- NOTE | 2022-01-02 15:17 | ED.GENADUL_ITS ---
Discharge Plan Disposition Patient Disposition: HOME Condition: Improving Discharge Details Clinical Impression: Hand injury Primary Care Provider: Leonor Rose ED Provider: Boaz Alvarado Home Meds and New Rx's Prescriptions: New cephalexin 500 mg capsule 500 mg PO QID 5 Days Qty: 20 0RF No Action cholecalciferol (vitamin D3) 50 mcg (2,000 unit) capsule 50 mcg PO DAILY nystatin 100,000 unit/gram powder 1 applic topical BID Qty: 60 4RF cyanocobalamin (vitamin B-12) [Vitamin B-12] 1,000 mcg tablet extended release 1,000 mcg PO DAILY aspirin [Adult Aspirin Regimen] 81 mg tablet,delayed release (DR/EC) 81 mg PO DAILY glucosamine sulfate 1,000 mg capsule 2,000 mg PO BID Rx Instructions: administer with a meal finasteride [Proscar] 5 mg tablet 5 mg PO DAILY Qty: 90 4RF apixaban 5 mg tablet 5 mg PO BID Qty: 180 4RF prednisolone acetate 1 % drops,suspension 1 drp ophthalmic (eye) DAILY valacyclovir 500 mg tablet 500 mg PO DAILY Qty: 90 4RF sertraline 50 mg tablet 50 mg PO DAILY Qty: 90 3RF Discharge Instructions Instructions: Contusion in Adults (ED) Additional Instructions: Please keep arm and hand elevated ice and continue to use ibuprofen and/or acetaminophen for pain and swelling. Please return to the emergency department if you develop worsening symptoms. I given you prescription for Keflex if you develop signs of infection but we would like you to return to the emergency department for evaluation if you develop pain swelling fevers chills or other signs of infection Medical Decision Making 66-year-old male history of dementia presents after injuring hand on Sunday, mechanical injury fell to get something at home, pain to palpation with movement to dorsum of hand and left wrist also endorses left elbow discomfort, does have some localized edema to dorsum of hand and wrist, mildly warm to the touch no fluctuance no lymphangitic streaking, has normal compartments neurovascular exam of limb intact, most of his pain is in the wrist and proximal hand, must consider fracture versus less likely dislocation versus bone bruise versus contusion versus early cellulitis, no evidence of deep space infection such as abscess or myositis history and physical. Nontoxic afebrile. Trial of analgesia, x-ray of hand wrist and forearm. Will likely have family and patient continue with ice elevation may give a prescription for Keflex in case redness worsens and spreads of arm. 18: 02 patient resting comfortably no acute distress. No evidence of fracture on x-ray of hand wrist forearm or elbow. Cellulitis is actually decreased since taking the dressing and ice off of the hand. We will give family a prescription for Keflex in case there are any signs of infection that develop otherwise instructed patient family to fill prescription. Strict return precautions for worsening symptoms. HPI General Date/Time Provider Initiated Documentation: 01/02/22 15:04 . HPI Narrative: 66-year-old male history of dementia presents after accidentally striking the back of his left hand on an object at home on Sunday, pain and swelling to dorsum of hand as well as pain to wrist forearm and elbow. No fevers or chills no systemic signs of illness. Related Data Home Medications Medication Instructions Recorded Confirmed cyanocobalamin (vitamin B-12) 1,000 mcg PO DAILY 07/30/18 01/02/22 1,000 mcg tablet,extended release (Vitamin B-12 ER) aspirin 81 mg tablet,delayed 81 mg PO DAILY 06/04/19 01/02/22 release (Adult Aspirin Regimen) glucosamine sulfate 1,000 mg 2,000 mg PO BID 10/28/20 01/02/22 capsule cholecalciferol (vitamin D3) 50 50 mcg PO DAILY 12/01/20 01/02/22 mcg (2,000 unit) capsule apixaban 5 mg tablet 5 mg PO BID #180 tabs 05/13/21 01/02/22 finasteride 5 mg tablet (Proscar) 5 mg PO DAILY #90 tab-caps 05/13/21 01/02/22 prednisolone acetate 1 % eye 1 drp ophthalmic (eye) DAILY 07/26/21 01/02/22 drops,suspension valacyclovir 500 mg tablet 500 mg PO DAILY #90 tabs 10/03/21 01/02/22 nystatin 100,000 unit/gram topical 1 applic topical BID #60 grams 11/22/21 01/02/22 powder sertraline 50 mg tablet 50 mg PO DAILY #90 tabs 12/08/21 01/02/22 cephalexin 500 mg capsule 500 mg PO QID 5 days #20 caps 01/02/22 Previous Rx's Medication Instructions Recorded apixaban 5 mg tablet 5 mg PO BID #180 tabs 05/13/21 finasteride 5 mg tablet (Proscar) 5 mg PO DAILY #90 tab-caps 05/13/21 valacyclovir 500 mg tablet 500 mg PO DAILY #90 tabs 10/03/21 nystatin 100,000 unit/gram topical 1 applic topical BID #60 grams 11/22/21 powder sertraline 50 mg tablet 50 mg PO DAILY #90 tabs 12/08/21 cephalexin 500 mg capsule 500 mg PO QID 5 days #20 caps 01/02/22 Allergies Allergy/AdvReac Type Severity Reaction Status Date / Time gluten Allergy Intermediate Verified 01/02/22 14:59 peanut AdvReac Mild DIARRHEA Verified 01/02/22 14:59 General Stated Complaint: Orthopedic BAILEY: 4 Review of Systems Narrative: Review of Systems Constitutional: negative Eyes: negative ENT: negative Cardiovascular: negative Respiratory: negative Gastrointestinal: negative : negative Musculoskeletal: negative Skin: Tenderness slight erythema to the dorsum left hand and wrist Neurologic: negative Psych: negative PFSH All Active Problems (Updated 01/02/22 @ 18:03 by Boaz Alvarado MD) Pneumothorax (Acute) Hand injury (Acute) Onychomycosis (Acute) Palliative care patient (Acute) Dysphagia (Acute) Intertrigo (Acute) Ambulatory dysfunction (Acute) Weakness (Acute) 2021- improved with PT Weight loss (Acute) AV block, 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) Dementia (Chronic) 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) Chronic anticoagulation (Chronic) for pulmonary embolism- on embolism PVD (peripheral vascular disease) (Chronic) BPH (benign prostatic hyperplasia) (Chronic) Mitral insufficiency (Chronic) Varicose veins of lower extremity (Chronic) Peripheral venous insufficiency (Chronic) Heart murmur, systolic (Chronic 02/05/18) Generalized osteoarthrosis (Chronic) mostly when it is cold Medical History ADHD (attention deficit hyperactivity disorder), 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) 2021- no longer using adderall Alzheimer disease Carpal tunnel syndrome (02/16/11) DVT (deep venous thrombosis) Essential hypertension (04/07/13) when obese GERD (gastroesophageal reflux disease) Hypertension 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 Brother Diabetes Heart disease Brother Heart disease Social History Smoking/Tobacco Use Status: Former Tobacco Use tobacco type: cigarettes Quit Date: 07/09/78 Second Hand Exposure: Yes Smoking risk assessment performed?: Yes Alcohol Intake: never Drug use: Never Substance use type: does not use Caregiver/Support person: Yes Household members: spouse and children Housing: house Number of Children: 2 Do you need help understanding health information?: Always Pets and animals: No (Rabbit) Sexually active: No Do you think of yourself as: straight/heterosexual Current gender identity: male What is your relationship status?: How often do you talk on the phone with friends or family?: once per week How often do you get together with friends or relatives?: once per week How often do you attend pentecostalism or scientologist services?: 4 or more times per year Do you belong to any clubs or organized social groups?: no Panel score (0-1 are the most socially isolated patients): 2 What type of physical activity do you participate in: walking Duration: < 15 minutes/day Frequency: daily Mikaela/Druze: Hinduism Seatbelt use: always Drive intox or ride w/intox heavy truck driver: No Do you feel safe in your relationship?: Yes Exam Narrative Exam Narrative: Physical Examination General: alert, awake, cooperative, resting comfortably, no acute distress HEENT: normocephalic, atraumatic; PERRL, EOM intact, conjunctiva normal; no nasal discharge; moist mucous membranes, oral and pharyngeal mucosa normal, tolerating secretions Neck: supple, trachea midline; full ROM Chest: normal to inspection Respiratory: normal respiratory effort, speaking in full sentences, clear to auscultation, no wheezing, rales or rhonchi Cardiac: regular rate, regular rhythm, S1S2 intact, no murmurs rubs or gallops GI: abdomen soft, non-tender, non-distended; no palpable mass or hepato splenomegaly Skin: Tenderness, edema to dorsum of left hand and wrist; healing scab dorsum of left hand, no fluctuance Neuro: AAOx3, normal speech, moving all extremities Extremities: Full range of motion flexion extension of fingers, sensation median radial and ulnar intact Compartments soft, radial pulse present, no palpable deformity elbow hand wrist forearm or elbow, extension flexion at elbow intact Psych: Appropriate mood and affect Course Vital Signs Vital signs: Vital Signs Temperature 36.9 C 01/02/22 14:55 Pulse 79 01/02/22 14:55 Respiratory Rate 16 01/02/22 14:55 Blood Pressure 122/64 01/02/22 14:55 Pulse Oximetry 93 01/02/22 14:55 Temperature 36.9 C 01/02/22 14:55 Temperature Source Temporal Artery Scan 01/02/22 14:55 Pulse 79 01/02/22 14:55 Respiratory Rate 16 01/02/22 14:55 Respiratory Effort Non-Labored 01/02/22 15:00 Blood Pressure 122/64 01/02/22 14:55 Blood Pressure Position Sitting 01/02/22 14:55 Pulse Oximetry 93 01/02/22 14:55 Oxygen Delivery Method Room Air 01/02/22 14:55 Oxygen Flow Rate 0 01/02/22 14:55 Pain Level 10 01/02/22 14:55
[2022-01-02] MEDS: Ketorolac 15 MG/ML VIAL IM (15:46)
--- NOTE | 2022-01-02 16:45 | DI.RAD_ITS ---
Exam(s) XR ELBOW LT LIMITED EXAM: XR ELBOW LT LIMITED CLINICAL HISTORY: abnormal finding on xr forearm. TECHNIQUE: 2D digital imaging was performed of the left elbow. Two images were obtained. Lateral a nd oblique views were obtained. COMPARISON: CR XR FOREARM LT from 01/02/2022 FINDINGS: BONES: No acute fracture is present. No bony destructive lesion is seen. JOINTS: The elbow is normally aligned. No joint effusion is seen. Degenerative changes are seen in th e elbow. SOFT TISSUE: Atherosclerosis is present. IMPRESSION: No acute fracture or dislocation. DATA REPOSITORY: RADIATION DOSE DELIVERED:
--- NOTE | 2022-01-02 17:50 | DI.VRAD_ITS ---
PROCEDURE INFORMATION: Exam: XR Left Elbow Exam date and time: 01/02/2022 5:30 PM Age: 66 years old Clinical indication: Other: Abnormal finding on XR forearm TECHNIQUE: Imaging protocol: Radiologic exam of the Left elbow. Views: 1 or 2 views. COMPARISON: CR XR FOREARM LT 01/02/2022 3:58 PM FINDINGS: Bones/joints: Degenerative changes in the humeral ulnar joint. There is no evidence of acute fracture.There is no evidence of malalignment or dislocation. Soft tissues: Normal. IMPRESSION: There is no evidence of acute fracture.There is no evidence of malalignment or dislocation. Dictated and Authenticated by: Janie Vaughan MD. Ordering:SIOBHAN Sandra MD
== END 2022-01-02 18:23 | disposition home or self-care (01) ==
PROVIDERS: Emergency Provider Emergency Medicine; PCP Nurse Practitioner
DX: S69.82XA Other specified injuries of left wrist, hand and finger(s), initial encounter (principal); M79.632 Pain in left forearm; W18.39XA Other fall on same level, initial encounter; R93.7 Abnormal findings on diagnostic imaging of other parts of musculoskeletal system; L03.114 Cellulitis of left upper limb
CPT/HCPCS: 96372; 99284; 73070; 73090; 73110; 73130; 99283; J1885

== ENCOUNTER 2022-01-13 16:47 | Inpatient (IN) | payer MEDICARE, MEDICAID, SELFPAY ==
[2022-01-13 16:48] VITALS: BP 105/65; PULSE 76; RESP 25; TEMP 36.7; O2SAT 94
--- NOTE | 2022-01-13 17:15 | DI.CT_ITS ---
Exam(s) CT LUMBAR SPINE WO EXAM: CT LUMBAR SPINE WO CLINICAL HISTORY: fall, midline spinal tenderness. TECHNIQUE: Imaging Protocol: Axial computed tomography images with coronal and sagittal reformatted images were created and reviewed CONTRAST MATERIAL: Intravenous: Noncontrast examination. Oral: No COMPARISON: CT ABD/PELVIS WO W CONTRAST from 09/06/2011 CT ABD/PELVIS WO W CONTRAST from 09/06/2011 CT HEAD WITHOUT CONTRAST from 04/09/2013 CT FACIAL WITHOUT CONTRAST from 10/30/2014 CT HEAD AND CSPINE W/O CONTRAST from 10/30/2014 FINDINGS: Bones: The last intervertebral disc space is designated the L5/S1 level for the numbering purpose of this examination. The vertebral body heights are well maintained. There is a mild right convex curva ture of the lumbar spine. No fracture is seen. Degenerative changes are seen throughout the lumbar s pine. There is left-sided fusion of the L3 and L4 vertebral bodies. There are vacuum discs at L1-L2 , L2-L3 and L4-L5. There is depression of the inferior endplate of L4. Soft Tissues: The visualized SI joints and sacrum are will maintained. The paraspinal soft tissues a re unremarkable. Gallstones are present. There is left nephrolithiasis. No hydronephrosis. Left re nal cysts are noted. Extensive atherosclerosis is present. There is an IVC filter in place. IMPRESSION: The does acute fracture subluxation of the lumbar spine. RADIATION DOSE DELIVERED: Total DLP DATA REPOSITORY: All CT scans at this facility are submitted to the National Radiology Data Registry (NRDR) Dose Index Registry (DIR) with the [employer] (ACR). RADIATION OPTIMIZATION: All CT scans at this facility use at least one of these dose optimization te chniques: automated exposure control; mA and/or kV adjustment per patient size (includes targeted exa ms where dose is matched to clinical indication); or iterative reconstruction.
--- NOTE | 2022-01-13 17:15 | DI.CT_ITS ---
Exam(s) CT THORACIC SPINE WO EXAM: CT THORACIC SPINE WO CLINICAL HISTORY: fall, midline back pain. TECHNIQUE: Imaging Protocol: Axial computed tomography images with coronal and sagittal reformatted images were created and reviewed. COMPARISON: CT CT LUMBAR SPINE WO from 01/13/2022 FINDINGS: Bones: No fractures or dislocations are seen. The alignment of the spine is normal including the cerv icothoracic junction. Bones are osteopenic. Soft tissues: The soft tissues of the chest are unremarkable. No large disk herniations are identifie d. Significant pulmonary fibrosis present. IMPRESSION: No acute fracture or subluxation in the thoracic spine. RADIATION DOSE DELIVERED: 1458.88 mGy.cm Total DLP 1458.88 mGy.cm Total DLP DATA REPOSITORY: All CT scans at this facility are submitted to the National Radiology Data Registry (NRDR) Dose Index Registry (DIR) with the [employer] (ACR). RADIATION OPTIMIZATION: All CT scans at this facility use at least one of these dose optimization te chniques: automated exposure control; mA and/or kV adjustment per patient size (includes targeted exa ms where dose is matched to clinical indication); or iterative reconstruction.
--- NOTE | 2022-01-13 17:15 | DI.RAD_ITS ---
Exam(s) XR FEMUR LT EXAM: XR FEMUR LT CLINICAL HISTORY: fall, left leg pain. TECHNIQUE: 2D digital imaging was performed of the left femur. Images were obtained. AP and latera l views were obtained. COMPARISON: CR LEFT KNEE 3 VIEW COMPLETE from 03/21/2010 FINDINGS: BONES: No acute fracture is present. No bony destructive lesion is seen. SOFT TISSUE: Normal. Atherosclerosis is present. IMPRESSION: 1. No acute fracture or dislocation of the femur. 2. VRad raise a question of a lateral tibial plateau deformity. If there is clinical concern, a dedi cated knee series may be obtained. DATA REPOSITORY: RADIATION DOSE DELIVERED:
--- NOTE | 2022-01-13 17:15 | DI.RAD_ITS ---
Exam(s) XR PELVIS AP EXAM: XR PELVIS AP CLINICAL HISTORY: fall, left hip pain. TECHNIQUE: 2D digital imaging was performed. One image was obtained. COMPARISON: No exams were available for comparison FINDINGS: BONES: No acute fracture is present. No bony destructive lesion is seen. JOINTS: No dislocation present. No joint space narrowing is present. Degenerative changes are seen in the lower lumbar spine. SOFT TISSUE: Normal. The distal aspect of an IVC filter is seen at the top of the film. Atherosclero sis is present. IMPRESSION: No acute fracture or dislocation. DATA REPOSITORY: RADIATION DOSE DELIVERED:
--- NOTE | 2022-01-13 17:28 | DI.CT_ITS ---
Exam(s) CT HEAD CERVICAL SPINE WO EXAM: CT HEAD CERVICAL SPINE WO CLINICAL HISTORY: fall, head injury, on AC. TECHNIQUE: Imaging Protocol: Axial computed tomography images with coronal and sagittal reformatted images were created and reviewed CR XR PORTABLE CHEST AP POST LINE from 11/15/2021 FINDINGS: CT Head: Ventricles and Extra axial spaces: Normal in size and morphology for the patient's age. Hemorrhage: None. Cerebral parenchyma: No acute territorial infarct is present. There are areas of decreased attenuati on in the white matter suggesting small vessel ischemic disease. Midline shift: None. Brainstem/Cerebellum: Normal. Calvarium: Normal. Visualized Paranasal sinuses/Mastoids: Clear. Soft Tissues: Unremarkable. CT Cervical Spine: Bones: There is a mildly displaced fracture of the anterior inferior endplate of C5. There are mild d egenerative changes seen in the cervical spine. Soft Tissues: Unremarkable. Lung Apices: Cystic spaces are seen in the lung apices. Interstitial thickening is seen in the lung apices. These changes have significantly progressed since is CT scan of the head neck from 2018. IMPRESSION: 1. No acute intracranial process. 2. Mildly displaced fracture of the anterior aspect of the inferior endplate of C5. 3. Progressive changes seen in the lung apices since 2018. Interstitial disease, infection or inflam mation should be considered. Please correlate with the patient's clinical symptoms. RADIATION DOSE DELIVERED: 1,690.58mGy.cm Total DLP DATA REPOSITORY: All CT scans at this facility are submitted to the National Radiology Data Registry (NRDR) Dose Index Registry (DIR) with the [employer] (ACR). RADIATION OPTIMIZATION: All CT scans at this facility use at least one of these dose optimization te chniques: automated exposure control; mA and/or kV adjustment per patient size (includes targeted exa ms where dose is matched to clinical indication); or iterative reconstruction.
--- NOTE | 2022-01-13 17:33 | ED.GENADUL_ITS ---
Discharge Plan Disposition Patient Disposition: HOME Condition: Stable Discharge Details Chief Complaint: Trauma Clinical Impression: C5 cervical fracture, Fall Primary Care Provider: Leonor Rose ED Provider: Boaz Alvarado Home Meds and New Rx's Prescriptions: No Action cholecalciferol (vitamin D3) 50 mcg (2,000 unit) capsule 50 mcg PO DAILY nystatin 100,000 unit/gram powder 1 applic topical BID Qty: 60 4RF cyanocobalamin (vitamin B-12) [Vitamin B-12] 1,000 mcg tablet extended release 1,000 mcg PO DAILY aspirin [Adult Aspirin Regimen] 81 mg tablet,delayed release (DR/EC) 81 mg PO DAILY glucosamine sulfate 1,000 mg capsule 2,000 mg PO BID Rx Instructions: administer with a meal finasteride [Proscar] 5 mg tablet 5 mg PO DAILY Qty: 90 4RF apixaban 5 mg tablet 5 mg PO BID Qty: 180 4RF prednisolone acetate 1 % drops,suspension 1 drp ophthalmic (eye) DAILY valacyclovir 500 mg tablet 500 mg PO DAILY Qty: 90 4RF sertraline 50 mg tablet 50 mg PO DAILY Qty: 90 3RF Discharge Instructions Instructions: Cervical Fracture (ED) Additional Instructions: Please remain in your c-collar at all times. Please follow-up with Dr. Garcia (neurosurgery) at [facility] next week. Please return emerged part if he develop weakness numbness worsening pain change in behavior or other abnormal symptomatology. Medical Decision Making 58-year-old male history of dementia on anticoagulation presents after mechanical fall from standing backwards hitting head no loss conscious no vomiting behaving normally per family, pain to head cervical spine lumbar spine and left hip, alert and oriented moving extremities to command, pelvis stable abdomen soft nontender nondistended equal breath sounds bilaterally, no r espiratory distress or hypoxia, given midline tenderness will assess with CT spine versus less likely, consider contusion subluxation or fracture versus unlikely spinal cord impingement, pelvis is stable however given left hip discomfort must consider proximal femoral fracture versus less likely hip dislocation, will obtain basic labs to assess electrolytes and blood count, pain control close reassessment disposition pending results. Evidence of nondisplaced C5 fracture patient remains in c-collar. Spoke with neurosurgeon Dr. Garcia at [facility] who reviewed images and case and would like to follow-up with patient next week in clinic, patient to be kept in collar until this time. Pain control resting comfortably neurologically intact. Patient family given home care instructions and return precautions. HPI General Date/Time Provider Initiated Documentation: 01/13/22 16:55 . HPI Narrative: 66-year-old male history of dementia, presents after mechanical fall from standing fell backwards at home, hitting head and left buttock, pain to cervical spine back and left hip. Patient is on anticoagulation. No loss of conscious no vomiting. Behaving normally per spouse Related Data Home Medications Medication Instructions Recorded Confirmed cyanocobalamin (vitamin B-12) 1,000 mcg PO DAILY 07/30/18 01/13/22 1,000 mcg tablet,extended release (Vitamin B-12 ER) aspirin 81 mg tablet,delayed 81 mg PO DAILY 06/04/19 01/13/22 release (Adult Aspirin Regimen) glucosamine sulfate 1,000 mg 2,000 mg PO BID 10/28/20 01/13/22 capsule cholecalciferol (vitamin D3) 50 50 mcg PO DAILY 12/01/20 01/13/22 mcg (2,000 unit) capsule apixaban 5 mg tablet 5 mg PO BID #180 tabs 05/13/21 01/13/22 finasteride 5 mg tablet (Proscar) 5 mg PO DAILY #90 tab-caps 05/13/21 01/13/22 prednisolone acetate 1 % eye 1 drp ophthalmic (eye) DAILY 07/26/21 01/13/22 drops,suspension valacyclovir 500 mg tablet 500 mg PO DAILY #90 tabs 10/03/21 01/13/22 nystatin 100,000 unit/gram topical 1 applic topical BID #60 grams 11/22/21 01/13/22 powder sertraline 50 mg tablet 50 mg PO DAILY #90 tabs 12/08/21 01/13/22 Previous Rx's Medication Instructions Recorded apixaban 5 mg tablet 5 mg PO BID #180 tabs 05/13/21 finasteride 5 mg tablet (Proscar) 5 mg PO DAILY #90 tab-caps 05/13/21 valacyclovir 500 mg tablet 500 mg PO DAILY #90 tabs 10/03/21 nystatin 100,000 unit/gram topical 1 applic topical BID #60 grams 11/22/21 powder sertraline 50 mg tablet 50 mg PO DAILY #90 tabs 12/08/21 Allergies Allergy/AdvReac Type Severity Reaction Status Date / Time gluten Allergy Intermediate Verified 01/13/22 17:00 peanut AdvReac Mild DIARRHEA Verified 01/13/22 17:00 General Stated Complaint: Trauma BAILEY: 3 Review of Systems Narrative: Review of Systems Constitutional: negative Eyes: negative ENT: negative Cardiovascular: negative Respiratory: negative Gastrointestinal: negative : negative Musculoskeletal: Back pain Skin: negative Neurologic: Head injury Psych: negative PFSH All Active Problems (Updated 01/13/22 @ 21:20 by Boaz Alvarado MD) Pneumothorax (Acute) Hand injury (Acute) C5 cervical fracture (Acute) Fall (Acute) Onychomycosis (Acute) Palliative care patient (Acute) Dysphagia (Acute) Intertrigo (Acute) Ambulatory dysfunction (Acute) Weakness (Acute) 2021- improved with PT Weight loss (Acute) AV block, 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) Dementia (Chronic) 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) Chronic anticoagulation (Chronic) for pulmonary embolism- on embolism PVD (peripheral vascular disease) (Chronic) BPH (benign prostatic hyperplasia) (Chronic) Mitral insufficiency (Chronic) Varicose veins of lower extremity (Chronic) Peripheral venous insufficiency (Chronic) Heart murmur, systolic (Chronic 02/05/18) Generalized osteoarthrosis (Chronic) mostly when it is cold Medical History ADHD (attention deficit hyperactivity disorder), 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) 2021- no longer using adderall Alzheimer disease Carpal tunnel syndrome (02/16/11) DVT (deep venous thrombosis) Essential hypertension (04/07/13) when obese GERD (gastroesophageal reflux disease) Hypertension 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 Brother Diabetes Heart disease Brother Heart disease Social History Smoking/Tobacco Use Status: Former Tobacco Use tobacco type: cigarettes Quit Date: 07/09/78 Second Hand Exposure: Yes Smoking risk assessment performed?: Yes Alcohol Intake: never Drug use: Never Substance use type: does not use Caregiver/Support person: Yes Household members: spouse and children Housing: house Number of Children: 2 Do you need help understanding health information?: Always Pets and animals: No (Rabbit) Sexually active: No Do you think of yourself as: straight/heterosexual Current gender identity: male What is your relationship status?: How often do you talk on the phone with friends or family?: once per week How often do you get together with friends or relatives?: once per week How often do you attend rastafarian or baptist services?: 4 or more times per year Do you belong to any clubs or organized social groups?: no Panel score (0-1 are the most socially isolated patients): 2 What type of physical activity do you participate in: walking Duration: < 15 minutes/day Frequency: daily Mikaela/Mandaeism: Oriental Orthodox Seatbelt use: always Drive intox or ride w/intox cdl company flatbed driver: No Do you feel safe at home: Yes Do you feel safe in your relationship?: Yes Exam Narrative Exam Narrative: Physical Examination General: alert, awake, cooperative, resting comfortably, no acute distress HEENT: normocephalic, atraumatic; PERRL, EOM intact, conjunctiva normal; no nasal discharge; moist mucous membranes, oral and pharyngeal mucosa normal, tolerating secretions Neck: In c-collar, midline cervical tenderness Chest: normal to inspection Respiratory: normal respiratory effort, speaking in full sentences, clear to auscultation, no wheezing, rales or rhonchi Cardiac: regular rate, regular rhythm, S1S2 intact, no murmurs rubs or gallops GI: abdomen soft, non-tender, non-distended; no palpable mass or hepatosplenomegaly : Back: Midline lumbar tenderness without crepitus or deformity, paraspinal abrasion lumbar region superficial hemostatic Skin: Superficial skin tear to right hand hemostatic no foreign body, s uperficial abrasion to right lumbar soft tissue Neuro: AAOx3, normal speech, moving all extremities, cranial nerves II through XII intact, full strength and sensation upper and lower extremities however decreased range of motion of left lower extremity due to discomfort Extremities: Pelvis stable, no external deformity noted, soft compartments warm well perfused sensate limbs, decreased range of motion at left hip due to discomfort. Psych: Appropriate mood and affect Course Vital Signs Vital signs: Vital Signs Temperature 36.7 C 01/13/22 16:48 Pulse 76 01/13/22 16:48 Respiratory Rate 25 H 01/13/22 16:48 Blood Pressure 105/65 01/13/22 16:48 Pulse Oximetry 94 01/13/22 16:48 Temperature 36.7 C 01/13/22 16:48 Temperature Source Temporal Artery Scan 01/13/22 16:48 Pulse 76 01/13/22 16:48 Respiratory Rate 25 H 01/13/22 16:48 Respiratory Effort 01/13/22 17:01 Respiratory Depth Normal 01/13/22 17:01 Respiratory Pattern Normal 01/13/22 17:01 Blood Pressure 105/65 01/13/22 16:48 Blood Pressure Position Supine 01/13/22 16:48 Pulse Oximetry 94 01/13/22 16:48 Oxygen Delivery Method Room Air 01/13/22 16:48 Oxygen Flow Rate 0 01/13/22 16:48 Pain Level 10 01/13/22 16:48
--- NOTE | 2022-01-13 17:36 | DI.RAD_ITS ---
Exam(s) XR CHEST 1V IN DI DEPT EXAM: XR CHEST 1V IN DI DEPT CLINICAL HISTORY: fall, hx of traumatic pneumo TECHNIQUE: 2D digital imaging was performed of the chest. One image was obtained. An AP view was ob tained. COMPARISON: CR XR PORTABLE CHEST AP from 11/16/2021 FINDINGS: MEDIASTINUM: Normal. HEART: Normal. PULMONARY VASCULATURE: Normal. LUNGS: There is diffuse underlying pulmonary fibrosis present. Increased opacity is seen in the righ t upper lobe compared to the prior examination. A developing infiltrate cannot be excluded. PLEURAL SPACE: No pleural effusion or pneumothorax. BONE:Within normal limits for the patient's age. OTHER FINDINGS:Normal. IMPRESSION: Increased opacity in the right upper lobe. New infiltrate cannot be excluded. DATA REPOSITORY: RADIATION DOSE DELIVERED:
[2022-01-13] MEDS: Ondansetron 4 MG/2 ML VIAL IVP (17:39)
[2022-01-13] MEDS: MORPHine 10 MG/ML VIAL 2 MG IVP ×2 (17:39→22:13)
[2022-01-13 17:56] LABS: Abs Immature Grans 0.04 10^3/uL (0.0-0.06); Absolute Basophil Count 0.03 10^3/uL (0.0-0.2); Absolute Eosinophil Count 0.23 10^3/uL (0.0-0.7); Absolute Lymphocyte Count 0.64 10^3/uL (1.2-3.4); Absolute Monocyte Count 0.62 10^3/uL (0.1-0.8); Basophils % 0.4; Eosinophils % 3.2; HCT 36.3 % (40.0-50.0); Immature Grans % 0.6; Lymphocytes % 8.9; MCH 33.1 pg (27.0-33.0); MCHC 33.1 % (32.0-36.0); MCV 100 fL (80-95); MPV 10.9 fL (8.0-11.0); Monocytes % 8.7; Neutrophils % 78.2; Platelet Count 157 10^3/uL (130-400); RBC 3.62 10^6/uL (4.36-5.78); RDW 12.6 % (11.8-14.1); RDW-SD 46.8 fL; WBC 7.16 10^3/uL (4.4-10.8)
[2022-01-13 18:09] LABS: INR 1.1 (0.9-1.1); PTT Activated 25.5 sec (21.0-27.5); Prothrombin Time 11.5 sec (9.3-11.0)
[2022-01-13 18:26] LABS: ALT 21 U/L (16-63); AST 25 U/L (15-37); Albumin 2.9 g/dL (3.4-5.0); Alkaline Phosphatase 56 U/L (46-116); Anion Gap 3.7 mmol/L (3-11); BUN 27 mg/dL (7-18); Bilirubin, Total 0.3 mg/dL (0.2-1.0); CO2 34.3 mmol/L (21.0-32.0); CREATININE 0.7 mg/dL (0.70-1.30); Calcium 8.3 mg/dL (8.5-10.1); Chloride 102 mmol/L (98-107); Glucose 111 mg/dL (74-106); Potassium 4.1 mmol/L (3.5-5.1); Sodium 140 mmol/L (136-145); Total Protein 6.6 g/dL (6.4-8.2)
--- NOTE | 2022-01-13 19:15 | DI.VRAD_ITS ---
Addendum created by Rocael Joyce MD on 01/13/2022 7:24:17 PM EDT: THIS REPORT CONTAINS FINDINGS THAT MAY BE CRITICAL TO PATIENT CARE. The findings were verbally communicated via telephone conference with Boaz Alvarado at 7:22 PM EDT on 01/13/2022. The findings were acknowledged and understood. Initial report created on 01/13/2022 7:14:33 PM EDT: PROCEDURE INFORMATION: Exam: CT Head Without Contrast Exam date and time: 01/13/2022 6:18 PM Age: 66 years old Clinical indication: Other: Fall, head injury, on ac TECHNIQUE: Imaging protocol: Computed tomography of the head without contrast. COMPARISON: CT HEAD FOR STROKE PROTOCOL 05/17/2018 10:16 AM FINDINGS: Brain: Generalized cerebral and cerebellar volume loss. No CT evidence of acute transcortical infarction. No acute intracranial hemorrhage, edema, midline shift, or mass effect. Cerebral ventricles: No ventriculomegaly. Paranasal sinuses: Visualized sinuses are unremarkable. No fluid levels. Mastoid air cells: Visualized mastoid air cells are well aerated. Bones/joints: Unremarkable. No acute fracture. Soft tissues: Unremarkable. Vasculature: Vascular calcifications of the intracranial internal carotid arteries. IMPRESSION: No acute intracranial abnormality is appreciated. Stable appearance of the brain. PROCEDURE INFORMATION: Exam: CT Cervical Spine Without Contrast Exam date and time: 01/13/2022 6:18 PM Age: 66 years old Clinical indication: Other: Fall, head injury, on ac TECHNIQUE: Imaging protocol: Computed tomography of the cervical spine without contrast. COMPARISON: CT HEAD FOR STROKE PROTOCOL 05/17/2018 10:16 AM FINDINGS: Bones/joints: Anterior inferior endplate fracture at C5 with mild depression, extending to the anterior vertebral cortex. Mild retrolisthesis of C3 and C4. Discs/Spinal canal/Neural foramina: Mild diffuse degenerative changes of the cervical spine. Lungs: Patchy interstitial and airspace densities with emphysematous changes and likely bronchiectasis at the visualized lung apices, incompletely evaluated. Vasculature: Dense vascular calcifications at the carotid bifurcations. Soft tissues: Unremarkable. IMPRESSION: 1. Mildly displaced anterior inferior endplate fracture at C5. 2. Diffuse degenerative changes of the cervical spine. 3. Abnormal appearance at the lung apices, which may reflect interstitial lung disease, infection, or inflammation. Dictated and Authenticated by: Rocael Joyce MD. Ordering:P.CORINNE Sandra MD
--- NOTE | 2022-01-13 19:19 | DI.VRAD_ITS ---
PROCEDURE INFORMATION: Exam: CT Thoracic Spine Without Contrast Exam date and time: 01/13/2022 6:28 PM Age: 66 years old Clinical indication: Other: Fall, midline back pain TECHNIQUE: Imaging protocol: Computed tomography of the thoracic spine without contrast. Total images: 2038 COMPARISON: CT HEAD CERVICAL SPINE WO 01/13/2022 6:18 PM FINDINGS: Tubes, catheters and devices: IVC filter in good position. Bones/joints: Mild old superior endplate compression deformity of T12. No compression deformity involving remaining thoracic vertebrae. Posterior elements are intact. Discs/Spinal canal/Neural foramina: No gross disc herniation. Epidural space: No epidural hematoma. Soft tissues: Subcutaneous edema within the abdominal wall. Lungs: Bilateral multilobar peripheral honeycombing. Heart: Significant coronary artery calcification. Gallbladder and bile ducts: Dependent sludge and 8 mm stone in the gallbladder. Kidneys and ureters: 5 mm left renal stone. 3.8 cm left renal cyst. Stomach and bowel: Significant fecal loading. IMPRESSION: 1. No acute thoracic fracture. 2. Pulmonary fibrosis consistent with UIP. 3. Left renal stone disease. 4. Cholelithiasis. Dictated and Authenticated by: Zachary Reed MD. Ordering:SIOBHAN Sandra MD
--- NOTE | 2022-01-13 19:33 | DI.VRAD_ITS ---
PROCEDURE INFORMATION: Exam: CT Lumbar Spine Without Contrast Exam date and time: 01/13/2022 6:28 PM Age: 66 years old Clinical indication: Other: Midline spinal tenderness, fall TECHNIQUE: Imaging protocol: Computed tomography of the lumbar spine without contrast. Total images: 1334 COMPARISON: No relevant prior studies available. FINDINGS: Tubes, catheters and devices: IVC filter. Bones/joints: No lumbar compression fracture. Lumbar dextroscoliosis. Partial left-sided bony fusion of L3-L4. Bilateral SI joint osteoarthritis. Posterior elements are intact. Discs/Spinal canal/Neural foramina: There is significant multilevel degenerative disc space narrowing including vacuum discs at L1-L2, L2-L3 and L4-L5. Multilevel central and foraminal narrowing including central stenosis at L2-L3 and L3-L4. Gallbladder and bile ducts: Cholelithiasis and sludge. Kidneys and ureters: Left renal calculus and cyst. Stomach and bowel: Significant fecal loading. Soft tissues: Lower abdominal wall vascular grafts. Subcutaneous stranding. IMPRESSION: 1. No acute fracture. 2. Degenerative change and findings as noted above. Dictated and Authenticated by: Zachary Reed MD. Ordering:SIOBHAN Sandra MD
--- NOTE | 2022-01-13 19:44 | DI.VRAD_ITS ---
PROCEDURE INFORMATION: Exam: XR Left Femur Exam date and time: 01/13/2022 6:43 PM Age: 66 years old Clinical indication: Injury or trauma; Fall; Blunt trauma; Hip and thigh or upper leg; Left; Injury date: 01/13/22 TECHNIQUE: Imaging protocol: Radiologic exam of the Left femur. Views: 2 views. Total images: 4 COMPARISON: CR XR PELVIS AP 01/13/2022 6:41 PM FINDINGS: Bones/joints: No femur fracture. No hip dislocation. There is questionable bony incongruity involving the lateral tibial plateau. Soft tissues: Unremarkable. Vasculature: There is extensive vascular calcification. IMPRESSION: 1. No hip fracture. 2. Questionable acute deformity involving the lateral tibial plateau. Consider dedicated knee series for further evaluation if history of knee pain. Dictated and Authenticated by: Zachary Reed MD. Ordering:SIOBHAN Sandra MD
--- NOTE | 2022-01-13 19:47 | DI.VRAD_ITS ---
PROCEDURE INFORMATION: Exam: XR Pelvis Exam date and time: 01/13/2022 6:41 PM Age: 66 years old Clinical indication: Injury or trauma; Fall; Blunt trauma (contusions or hematomas); Left; Hip; Injury date: 01/13/22 TECHNIQUE: Imaging protocol: Radiologic exam of the pelvis. Views: 1 or 2 view. Total images: 1 COMPARISON: CT LUMBAR SPINE WO 01/13/2022 6:28 PM FINDINGS: Bones/joints: No acute fracture. No dislocation or joint space widening. Lower lumbar degenerative disc disease. Soft tissues: Nonspecific calcific densities project over the right iliac wing. Vasculature: Partially visualized IVC filter. Prominent vascular calcification. IMPRESSION: No acute fracture. Dictated and Authenticated by: Zachary Reed MD. Ordering:SIOBHAN Sandra MD
--- NOTE | 2022-01-13 19:51 | DI.VRAD_ITS ---
PROCEDURE INFORMATION: Exam: XR Chest Exam date and time: 01/13/2022 6:40 PM Age: 66 years old Clinical indication: Injury or trauma; Fall; Blunt trauma (contusions or hematomas); Injury date: 01/13/22 TECHNIQUE: Imaging protocol: Radiologic exam of the chest. Views: 1 view. Total images: 1 COMPARISON: CR XR PORTABLE CHEST AP 11/16/2021 1:06 PM FINDINGS: Lungs: Again noted are coarse reticulonodular lung markings bilaterally. There is interval hazy increased opacity in the right upper lobe. Pulmonary barbara: Unremarkable contours. Pleural spaces: No pleural effusion. No pneumothorax. Heart/Mediastinum: Stable mediastinal contours. Bones/joints: Unremarkable. Intraperitoneal space: Visualized upper abdomen is unremarkable. IMPRESSION: 1. Pulmonary fibrosis. 2. Possible new ground-glass opacity within the right upper lobe. Dictated and Authenticated by: Zachary Reed MD. Ordering:SIOBHAN Sandra MD
--- NOTE | 2022-01-13 20:00 | DI.RAD_ITS ---
Exam(s) XR CERVICAL SP INIGUEZ TRAUMA 2-3V EXAM: XR CERVICAL SP INIGUEZ TRAUMA 2-3V CLINICAL HISTORY: C5 fracture on CT, neurosurg reqesting xr. TECHNIQUE: 2D digital imaging was performed. Two views were obtained. AP and lateral views were ob tained. COMPARISON: No exams were available for comparison FINDINGS: BONES: There is a nondisplaced fracture involving the inferior endplate of the C5 vertebral body. Th is is best appreciated on the CT scan of the cervical spine from the same day. C7 and T1 are not vis ualized on the lateral view. DISKS: Intervertebral disc spaces are maintained. Degenerative changes are seen in the spine. ALIGNMENT: Cervical spinal alignment is within normal limits. SOFT TISSUE: Normal. Chronic fibrotic changes are seen in the lung apices. IMPRESSION: Acute nondisplaced fracture involving the inferior endplate of C5. DATA REPOSITORY: RADIATION DOSE DELIVERED:
--- NOTE | 2022-01-13 20:57 | DI.VRAD_ITS ---
PROCEDURE INFORMATION: Exam: XR Cervical Spine Exam date and time: 01/13/2022 8:42 PM Age: 66 years old Clinical indication: Other: C5 fracture TECHNIQUE: Imaging protocol: Radiologic exam of the cervical spine. Views: 2 or 3 views. Total images: 2 COMPARISON: CT HEAD CERVICAL SPINE WO 01/13/2022 6:18 PM FINDINGS: Bones/joints: There is a fracture involving the anterior aspect of the C5 inferior endplate. No displacement. The C7 vertebral body is not adequately visualized. Soft tissues: No associated soft tissue swelling. Lungs: There are reticulonodular changes at both lung apices. IMPRESSION: Nondisplaced C5 fracture. Dictated and Authenticated by: Zachary Reed MD. Ordering:SIOBHAN Sandra MD
[2022-01-13] MEDS: Ketorolac 15 MG/ML VIAL IVP (22:14)
--- NOTE | 2022-01-13 23:15 | DI.RAD_ITS ---
Exam(s) XR TIB/FIB RT XR FEMUR RT EXAM: XR FEMUR RT and XR tib fib RT CLINICAL HISTORY: fall leg pain. TECHNIQUE: 2D digital imaging was performed of the right femur. Six images were obtained. AP and la teral views were obtained. COMPARISON: CR,XR XR FEMUR LT from 01/13/2022 CR,XR XR TIB/FIB RT from 01/13/2022 FINDINGS: BONES: No acute fracture is present. No bony destructive lesion is seen. Osteopenia. There is chond rocalcinosis and mild degenerative changes of the knee. SOFT TISSUE: Extensive atherosclerosis is present. IMPRESSION: No acute fracture or dislocation. DATA REPOSITORY: RADIATION DOSE DELIVERED:
--- OUTSIDE RECORDS SUMMARY | 2022-01-13 23:20 | XMS_ITS | Encounter Summary ---
:1955 Author Organization [facility] [address] Care Team Providers Name Role Phone Simon Mojica MD Primary Care Provider Encounter Details Date Type Department Care Team Description 05/17/2018 Hospital Encounter Radiology Library at Dm Mojica MD [facility] [place] [id number] [place] [address] [phone] Social History Tobacco Use Types Packs/Day Years Used Date Former Smoker Cigarettes Quit: 02/05/19 81 Smokeless Tobacco: Never Used Alcohol Use Standard Drinks/Week Comments No 0 (1 standard drink = 0.6 oz pure alcoho l) Sex Assigned at Date Recorded Not on file documented as of this encounter Medications at Time of Discharge Medication Sig Dispensed Refills Start Date End Date CALCIUM CARBONATE/VITAMIN Take by mouth. 0 D3 (VITAMIN D-3 ORAL) GLUCOSAMINE HCL/CHONDRO OCHOA 0 9 A (GLUCOSAMINE-CHONDROITIN ORAL) finasteride (PROSCAR) 5 mg 0 9 tablet warfarin (COUMADIN) 10 mg 10 MG = 1 Tablet(s), 0 04/04/2009 tablet PO, Once daily METOPROLOL SUCCINATE ORAL 0 04/04/2009 documented as of this encounter Plan of Treatment Not on filedocumented as of this encounter Procedures Procedure Name Priority Date/Time Associated Diagnosis Comme nts FILM LIBRARY Routine 05/17/2018 7:34 PM Results f or this STORAGE ONLY CT EST procedure ar e in HEAD AND SPINE the results section. documented in this encounter Results Film Library- Storage Only CT Head And Spine (05/17/2018 7:34 PM EST) Specimen (Source) Anatomical Location Collection Method / Collectio n Time Received Time / Laterality Volume Narrative YESI RAD - 05/17/2018 7:34 PM EST This exam is for storage only and is aut o-finalizing. Simon Mojica MD IMG FILM LIBRARY ORDERABLES Performing Organization Address City/State/ZIP Code Phon e Number [place], [place] documented in this encounter Visit Diagnoses Not on filedocumented in this encounter Care Teams Belt Buckle Maker Relationship Specialty Start Date End Date Simon Mojica MD PCP - General 01/29/[address] [place] [address] documented as of this encounter
--- OUTSIDE RECORDS SUMMARY | 2022-01-13 23:20 | XMS_ITS | Encounter Summary ---
:1955 Author Organization [facility] [place] [address] Care Team Providers Name Role Phone Simon Mojica MD Primary Care Provider Encounter Details Date Type Department Care Team Description 02/05/2013 Abstract Plastic Surgery at [facility] Luz Whitney, [place] [address] Social History Tobacco Use Types Packs/Day Years Used Date Former Smoker Quit: 02/05/19 81 Sex Assigned at Date Recorded Not on file documented as of this encounter Plan of Treatment Not on filedocumented as of this encounter Visit Diagnoses Not on filedocumented in this encounter Care Teams Physician Office Clin Asst Relationship Specialty Start Date End Date Simon Mojica MD PCP - General 01/29/[address] [place] [address] documented as of this encounter
--- OUTSIDE RECORDS SUMMARY | 2022-01-13 23:20 | XMS_ITS | Encounter Summary ---
:1955 Author Organization [facility] [place] [address] Care Team Providers Name Role Phone Simon Mojica MD Primary Care Provider Encounter Details Date Type Department Care Team Description 01/13/2022 Ancillary Procedure Radiology Library at Simon Mojica MD Arrived [facility] [place] [id number] [place] [address] (Wo rk) [phone] Social History Tobacco Use Types Packs/Day Years [...] Associated Diagnosis Comme nts FILM LIBRARY Routine 01/13/2022 7:55 PM Results f or this STORAGE ONLY DX EDT procedure ar e in LOWER EXTREMITY the results section. documented in this encounter Results Film Library- Storage Only DX Lower Extremity (01/13/2022 7:55 PM EDT) Specimen (Source) Anatomical Location Collection Method / Collectio n Time Received Time / Laterality Volume Narrative WILFRIDO - 01/13/2022 7:55 PM EDT This exam is auto-finalizing. It's purpo se is for storage only. Simon Mojica MD G FILM LIBRARY ORDERABLES Performing Organization Address City/State/ZIP Code Phon e Number [place], [place] documented in this encounter Visit Diagnoses Not on filedocumented in this encounter Care Teams Journalism Teacher Relationship Specialty Start Date End Date Simon Mojica MD PCP - General 01/29/[address] [place] [address] documented as of this encounter
--- OUTSIDE RECORDS SUMMARY | 2022-01-13 23:20 | XMS_ITS | Encounter Summary ---
:1955 Author Organization [facility] [place] [address] Care Team Providers Name Role Phone Simon Mojica MD Primary Care Provider Encounter Details Date Type Department Care Team Description 01/13/2022 Ancillary Procedure Radiology Library at Simon Mojica MD Arrived [facility] [place] [id number] [place] [address] (Wo rk) [phone] Social History Tobacco Use Types Packs/Day Years [...] Diagnosis Comme nts FILM LIBRARY Routine 01/13/2022 7:53 PM Results f or this STORAGE ONLY CT EDT procedure ar e in HEAD AND SPINE the results section. documented in this encounter Results Film Library- Storage Only CT Head And Spine (01/13/2022 7:53 PM EDT) Specimen (Source) Anatomical Location Collection Method / Collectio n Time Received Time / Laterality Volume Narrative WILFRIDO - 01/13/2022 7:53 PM EDT This exam is auto-finalizing. It's purpo se is for storage only. Simon Mojica MD G FILM LIBRARY ORDERABLES Performing Organization Address City/State/ZIP Code Phon e Number [place], [place] documented in this encounter Visit Diagnoses Not on filedocumented in this encounter Care Teams Bdr Relationship Specialty Start Date End Date Simon Mojica MD PCP - General 01/29/13 [address] [place] [address] documented as of this encounter
--- OUTSIDE RECORDS SUMMARY | 2022-01-13 23:20 | XMS_ITS | Encounter Summary ---
:1955 Author Organization [facility] [address] Care Team Providers Name Role Phone Simon Mojica MD Primary Care Provider Encounter Details Date Type Department Care Team Description 10/30/2014 Orders Only Plastic Surgery at [facility] Simon Tompkins MD [facility] [address] PLASTIC SURGERY [phone] [place], [place] [address] (Wo rk) Social History Tobacco Use Types Packs/Day Years [...] Associated Diagnosis Comme nts FILM LIBRARY Routine 10/30/2014 4:31 PM Results f or this STORAGE ONLY CT EDT procedure ar e in HEAD AND SPINE the results section. documented in this encounter Results Film Library- Storage only CT Head And Spine (10/30/2014 4:31 PM EDT) Anatomical Region Laterality Modality Head, C-spine, T-spine, L-spine Other Specimen (Source) Anatomical Collection Method Collection Time Re ceived Time Location / / Volume Laterality 10/30/2014 4:31 PM EDT Narrative 10/30/2014 4:31 PM EDT This is a Non-reportable exam Procedure Note ANOOP, UNSIGNED REPORT - 10/30/2014Formatt ing of this note might be different from the original. This is a Non-reportable exam Simon Tompkins MD IM FILM LIBRARY ORDERABLES documented in this encounter Visit Diagnoses Not on filedocumented in this encounter Care Teams Carbide Grinder Relationship Specialty Start Date End Date Simon Mojica MD PCP - General 01/29/[address] [place] [address] documented as of this encounter
--- OUTSIDE RECORDS SUMMARY | 2022-01-13 23:20 | XMS_ITS | Encounter Summary ---
:1955 Author Organization [facility] [address] Care Team Providers Name Role Phone Simon Mojica MD Primary Care Provider Encounter Details Date Type Department Care Team Description 04/22/2018 Hospital Encounter Radiology Library at Dm Mojica MD [facility] [place] [address] [place] [address] [phone] Social History Tobacco Use Types Packs/Day Years [...] encounter Procedures Procedure Name Priority Date/Time Associated Comments Diagnosis FILM LIBRARY STORAGE Routine 04/22/2018 12:00 AM Results for this ONLY ULTRASOUND EDT procedure ar piyush in STUDY the results section. documented in this encounter Results Film Library- Storage Only Ultrasound Study (04/22/2018 12:00 AM EDT) Specimen (Source) Anatomical Location Collection Method / Collectio n Time Received Time / Laterality Volume Narrative YESI RAD - 05/17/2018 7:33 PM EST This exam is for storage only and is aut o-finalizing. Simon Mojica MD IMG FILM LIBRARY ORDERABLES Performing Organization Address City/State/ZIP Code Phon e Number [place], [place] documented in this encounter Visit Diagnoses Not on filedocumented in this encounter Care Teams Computer Publisher Relationship Specialty Start Date End Date Simon Mojica MD PCP - General 01/29/[address] [place] [address] documented as of this encounter
--- OUTSIDE RECORDS SUMMARY | 2022-01-13 23:20 | XMS_ITS | Encounter Summary ---
:1955 Author Organization [facility] [place] [address] Care Team Providers Name Role Phone Simon Mojica MD Primary Care Provider Encounter Details Date Type Department Care Team Description 02/14/2013 Abstract Plastic Surgery at [facility] Luz Whitney, [place] [address] Social History Tobacco Use Types Packs/Day Years Used Date Former Smoker Quit: 02/05/19 81 Alcohol Use Standard Drinks/Week Comments No 0 (1 standard drink = 0.6 oz pure alcoho l) Sex Assigned at Date Recorded Not on file documented as of this encounter Last Filed Vital Signs Vital Sign Reading Time Taken Comments Blood Pressure - - Pulse - - Temperature - - Respiratory Rate - - Oxygen Saturation - - Inhaled Oxygen - - Concentration Weight 131.5 kg (290 lb) 02/14/2013 5:37 PM reported by pt. - EDT without shoes Height 182.9 cm (6') 02/14/2013 5:37 PM reported by p t. EDT Body Mass Index 39.33 02/14/2013 5:37 PM EDT documented in this encounter Plan of Treatment Not on filedocumented as of this encounter Visit Diagnoses Not on filedocumented in this encounter Care Teams Vp Talent Management Relationship Specialty Start Date End Date Simon Mojica MD PCP - General 01/29/[address] [place] [address] documented as of this encounter
--- OUTSIDE RECORDS SUMMARY | 2022-01-13 23:20 | XMS_ITS | Encounter Summary ---
:1955 Author Organization [facility] [place] [address] Care Team Providers Name Role Phone Simon Mojica MD Primary Care Provider Encounter Details Date Type Department Care Team Description 01/13/2022 Ancillary Procedure Radiology Library at Simon Mojica MD Arrived [facility] [place] [id number] [place] [address] (Wo rk) [phone] Social History Tobacco Use Types Packs/Day Years [...] Diagnosis Comme nts FILM LIBRARY Routine 01/13/2022 7:54 PM Results f or this STORAGE ONLY DX EDT procedure ar e in CHEST the results section. documented in this encounter Results Film Library- Storage Only DX Chest (01/13/2022 7:54 PM EDT) Specimen (Source) Anatomical Location Collection Method / Collectio n Time Received Time / Laterality Volume Narrative WILFRIDO - 01/13/2022 7:54 PM EDT This exam is auto-finalizing. It's purpo se is for storage only. Simon Mojica MD G FILM LIBRARY ORDERABLES Performing Organization Address City/State/ZIP Code Phon e Number RAD DH RAD [place], [place] documented in this encounter Visit Diagnoses Not on filedocumented in this encounter Care Teams Construction Services Technician Relationship Specialty Start Date End Date Simon Mojica MD PCP - General 01/29/[address] [place] [address] documented as of this encounter
--- OUTSIDE RECORDS SUMMARY | 2022-01-13 23:20 | XMS_ITS | Encounter Summary ---
:1955 Author Organization [facility] [place] [address] Care Team Providers Name Role Phone Simon Mojica MD Primary Care Provider Encounter Details Date Type Department Care Team Description 01/13/2022 Ancillary Procedure Radiology Library at Simon Mojica MD Arrived [facility] [place] [phone] [place] [address] (Wo rk) [phone] Social History Tobacco Use Types Packs/Day Years [...] ONLY DX EDT procedure ar e in PELVIS the results section. documented in this encounter Results Film Library- Storage Only DX Pelvis (01/13/2022 7:55 PM EDT) Specimen (Source) Anatomical Location Collection Method / Collectio n Time Received Time / Laterality Volume Narrative WILFRIDO - 01/13/2022 7:55 PM EDT This exam is auto-finalizing. It's purpo se is for storage only. Simon Mojica MD G FILM LIBRARY ORDERABLES Performing Organization Address City/State/ZIP Code Phon e Number RAD DH RAD [place], [place] documented in this encounter Visit Diagnoses Not on filedocumented in this encounter Care Teams Roguer Relationship Specialty Start Date End Date Simon Mojica MD PCP - General 01/29/[address] [place] [address] documented as of this encounter
--- OUTSIDE RECORDS SUMMARY | 2022-01-13 23:20 | XMS_ITS | Clinical Summary ---
:1955 Author Organization [facility] [place] [address] Care Team Providers Name Role Phone Simon Mojica MD Primary Care Provider Allergies Active Allergy Reactions Severity Noted Date Comments Peanut 02/05/2013 diarrhea Medications Medication Sig Dispensed Refills Start Date End Date Status GLUCOSAMINE HCL/CHONDRO 0 04/04/2009 Active OCHOA A (GLUCOSAMINE-CHONDROITI N ORAL) finasteride (PROSCAR) 5 0 04/04/2009 Active mg tablet warfarin (COUMADIN) 10 10 MG = 1 0 04/04/2009 Active mg tablet Tablet(s), PO, Once daily METOPROLOL SUCCINATE 0 04/04/2009 Active ORAL CALCIUM Take by mouth. 0 Activ e CARBONATE/VITAMIN D3 (VITAMIN D-3 ORAL) Active Problems Problem Noted Date Facial trauma 11/09/2014 Abdominal pannus 02/20/2013 Encounters Date Type Specialty Care Team Description 01/13/2022 Ancillary Procedure Radiology Simon Mojica MD Arr ived 01/13/2022 Ancillary Procedure Radiology Simon Mojica MD Arr ived 01/13/2022 Ancillary Procedure Radiology Simon Mojica MD Arr ived 01/13/2022 Ancillary Procedure Radiology Simon Mojica MD Arr ived 01/13/2022 Ancillary Procedure Radiology Simon Mojica MD Arr ived from Last 3 Months Immunizations Name Administration Dates Next Due Pneumococcal Polyvalent 23 10/14/2003 Td, adult 10/31/2002 Social History Tobacco Use Types Packs/Day Years Used Date Former Smoker Cigarettes Quit: 02/05/19 81 Smokeless Tobacco: Never Used Alcohol Use Standard Drinks/Week Comments No 0 (1 standard drink = 0.6 oz pure alcoho l) Sex Assigned at Date Recorded Not on file Last Filed Vital Signs Vital Sign Reading Time Taken Comments Blood Pressure 127/77 11/09/2014 3:15 PM EDT Pulse 78 11/09/2014 3:15 PM EDT Temperature 36.4 ??C (97.5 ??F) 03/22/2011 9:48 AM EDT Respiratory Rate 16 03/22/2011 9:48 AM EDT Oxygen Saturation 98% 03/22/2011 9:48 AM EDT Inhaled Oxygen Concentration - - Weight 118.4 kg (261 lb) 11/09/2014 3:15 PM EDT Height 177.8 cm (5' 10) 11/09/2014 3:15 PM EDT Body Mass Index 37.45 11/09/2014 3:15 PM EDT Plan of Treatment Health Maintenance Due Date Last Done Comments Covid-19 Vaccine (#1) 1958 Hepatitis C Screening 1971 Lipid Screening 1971 Tdap adult 1972 Colonoscopy 1998 Zoster vaccine (1 of 2) 2003 Advance Directive 2008 Tetanus vaccine 10/31/2012 10/31/2002 Pneumoccocal Vaccine: 65+ (1 - PCV) 2018 10/14/2003 Influenza (Flu) vaccine (1 of 1 - Influenza standard 03/09/2022 series) Procedures Procedure Name Priority Date/Time Associated Diagnosis Comme nts FILM LIBRARY Routine 01/13/2022 10:18 PM Results for this STORAGE ONLY DX EDT procedure ar e in SPINE the results section. FILM LIBRARY Routine 01/13/2022 7:55 PM Results f or this STORAGE ONLY DX EDT procedure ar e in PELVIS the results section. FILM LIBRARY Routine 01/13/2022 7:55 PM Results f or this STORAGE ONLY DX EDT procedure ar e in LOWER EXTREMITY the results section. FILM LIBRARY Routine 01/13/2022 7:54 PM Results f or this STORAGE ONLY DX EDT procedure ar e in CHEST the results section. FILM LIBRARY Routine 01/13/2022 7:53 PM Results f or this STORAGE ONLY CT EDT procedure ar e in HEAD AND SPINE the results section. from Last 3 Months Results Film Library- Storage Only DX Spine (01/13/2022 10:18 PM EDT) Specimen (Source) Anatomical Location Collection Method / Collectio n Time Received Time / Laterality Volume Narrative DH RAD - 01/13/2022 10:18 PM EDT This exam is auto-finalizing. It's purpo se is for storage only. Simon Mojica MD [facility] FILM LIBRARY ORDERABLES Performing Organization Address [facility] Phon e Number DH RAD DH RAD [place], [place] Film Library- Storage Only DX Pelvis (01/13/2022 7:55 PM EDT) Specimen (Source) Anatomical Location Collection Method / Collectio n Time Received Time / Laterality Volume Narrative RAD - 01/13/2022 7:55 PM EDT This exam is auto-finalizing. It's purpo se is for storage only. Simon Mojica MD [facility] FILM LIBRARY ORDERABLES Performing Organization Address [facility] Phon e Number DH RAD DH RAD [place], [place] Film Library- Storage Only DX Lower Extremity (01/13/2022 7:55 PM EDT) Specimen (Source) Anatomical Location Collection Method / Collectio n Time Received Time / Laterality Volume Narrative RAD - 01/13/2022 7:55 PM EDT This exam is auto-finalizing. It's purpo se is for storage only. Simon Mojica MD [facility] FILM LIBRARY ORDERABLES Performing Organization Address [facility] Phon e Number DH RAD DH RAD [place], [place] Film Library- Storage Only DX Chest (01/13/2022 7:54 PM EDT) Specimen (Source) Anatomical Location Collection Method / Collectio n Time Received Time / Laterality Volume Narrative RAD - 01/13/2022 7:54 PM EDT This exam is auto-finalizing. It's purpo se is for storage only. Simon Mojica MD [facility] FILM LIBRARY ORDERABLES Performing Organization Address [facility] Phon e Number DH RAD DH RAD [place], [place] Film Library- Storage Only CT Head And Spine (01/13/2022 7:53 PM EDT) Specimen (Source) Anatomical Location Collection Method / Collectio n Time Received Time / Laterality Volume Narrative RAD - 01/13/2022 7:53 PM EDT This exam is auto-finalizing. It's purpo se is for storage only. Simon Mojica MD [facility] FILM LIBRARY ORDERABLES Performing Organization Address City/[facility]/ZIP Code Phon e Number DH RAD DH RAD [place], [place] from Last 3 Months Care Teams Head Of Measurement & Insights Relationship Specialty Start Date End Date Simon Mojica MD PCP - General 01/29/[address] [facility] [place], [place] [address]
--- OUTSIDE RECORDS SUMMARY | 2022-01-13 23:20 | XMS_ITS | Encounter Summary ---
:1955 Author Organization [facility] [address] Care Team Providers Name Role Phone Simon Mojica MD Primary Care Provider Encounter Details Date Type Department Care Team Description 03/25/2018 Hospital Encounter Radiology Library at Dm Mojica MD [facility] [place] [id number] [place] [address] [phone] Social History Tobacco Use Types Packs/Day Years [...] Associated Diagnosis Comme nts FILM LIBRARY Routine 03/25/2018 12:00 AM Results for this STORAGE ONLY CT EDT procedure ar e in HEAD the results section. documented in this encounter Results Film Library- Storage Only CT Head (03/25/2018 12:00 AM EDT) Specimen (Source) Anatomical Location Collection Method / Collectio n Time Received Time / Laterality Volume Narrative YESI RAD - 05/17/2018 7:31 PM EST This exam is for storage only and is aut o-finalizing. Simon Mojica MD IMG FILM LIBRARY ORDERABLES Performing Organization Address City/State/ZIP Code Phon e Number [place], [place] documented in this encounter Visit Diagnoses Not on filedocumented in this encounter Care Teams Wildlife Conservationist Relationship Specialty Start Date End Date Simon Mojica MD PCP - General 01/29/[address] [place] [address] documented as of this encounter
--- OUTSIDE RECORDS SUMMARY | 2022-01-13 23:20 | XMS_ITS | Encounter Summary ---
:1955 [place] [address] Care Team Providers Name Role Phone Juan Carlos Rodriguez MD Primary Care Provider Encounter Details Date Type Department Care Team Description 03/22/2011 Emergency Emergency Department Omar Holguin PA [facility] [place] [address] Tendinitis, calcific, shoulder; Haley Shah EMERGENCY DEPT, [facility] [place] [address] [place] [address] Social History Tobacco Use Types Packs/Day Years Used Date Never Assessed Sex Assigned at Date Recorded Not on file documented as of this encounter Last Filed Vital Signs Vital Sign Reading Time Taken Comments Blood Pressure 145/90 03/22/2011 9:48 AM EDT Pulse 58 03/22/2011 9:48 AM EDT Temperature 36.4 ??C (97.5 ??F) 03/22/2011 9:48 AM EDT Respiratory Rate 16 03/22/2011 9:48 AM EDT Oxygen Saturation 98% 03/22/2011 9:48 AM EDT Inhaled Oxygen Concentration - - Weight - - Height - - Body Mass Index - - documented in this encounter Discharge Instructions AttachmentsThe following attachments cannot be sent through Care Everywhere. SHOULDER BURSITIS: AFTER YOUR VISIT (ANGOLAN)documented in this encounter Medications at Time of Discharge Medication Sig Dispensed Refills Start Date End Date GLUCOSAMINE HCL/CHONDRO 0 04/04/2009 OCHOA A (GLUCOSAMINE-CHONDROITIN ORAL) finasteride (PROSCAR) 5 0 04/04/2009 mg tablet warfarin (COUMADIN) 10 mg 10 MG = 1 Tablet(s), 0 04/04/2009 tablet PO, Once daily METOPROLOL SUCCINATE ORAL 0 04/04/2009 hydroCODone-acetaminophen Take 1 tablet by 20 tablet 0 03/0902/05/2013 (VICODIN) 5-500 mg per mouth nightly as tablet needed for Pain. No driving, no alcohol, no extra tylenol lisinopril 10MG, PO, Once daily 0 04/04/20090 03/2013 (PRINIVIL;ZESTRIL) 10 mg tablet documented as of this encounter ED Notes Omar Holguin PA - 03/22/2011 9:58 AM EDT No chief complaint on file. The history is provided by the patient. This 55-year-old male presents himself to the emergency department for a one- month history of rightshoulder pain. He denies any direct trauma. He is right- hand dominant and is active in woodworking. This started as a minor ache in his shoulder, he continued to work, but the pain increased to the point where he has very limited range of motion at this time. He has had no previous similar episodes, denies any numbness or weakness in the arm. Past medical history is significant for pulmonary embolus. Patient is on chronic Coumadin therapy. No Known Allergies Review of Systems Constitutional: Negative. Respiratory: Negative. Cardiovascular: Negative. Musculoskeletal: Positive for arthralgias. Physical Exam Obese white male no acute distress. Vital signs blood pressure 145/90, pulse 58, respirations 16, temperature 36.4, oxygen saturation rate is 98% on room air. RIGHT SHOULDER: No obvious deformity, or swelling. There is slight tenderness over the anterior shoulder and the trapezius. There is no a.c. tenderness. There is normal neurovascular status of the arm.The patient has extremely limited range of motion only able to forward abduct approximately 5-10?? cannot laterally abduct. Procedures: X:Ray - calcium deposit humeral head. No fracture MDM ED Course: Diagnosis: Calcific tendinitis right shoulder. Discussed diagnosis and treatment with thepatient. I did give them the option of a cortisone joint injection however he wishes to wait and have his own physician review it. We'll start him on some Vicodin and Tylenol. Followup with his PCP. MICHEL Mackay 03/22/11 1122 documented in this encounter Miscellaneous Notes Discharge Summary - Provider, Sergey - 03/24/2011 10:58 AM EDT Miscellaneous - Provider, Scanning - 03/22/2011 7:01 PM EDT ED Triage - Valerie Yanez RN - 03/22/2011 9:43 AM EDT Pain in r shoulder x 1 month I pulled all the muscles doing woodworking Ambulatory, holding R arm at his side. N/v intact. documented in this encounter Plan of Treatment Not on filedocumented as of this encounter Procedures Procedure Name Priority Date/Time Associated Diagnosis Comme nts XR SHOULDER Routine 03/22/2011 11:14 AM Results for this EDT procedure are i n the results section . documented in this encounter Results XR SHOULDER (03/22/2011 11:14 AM EDT) Anatomical Region Laterality Modality Shoulder N/A Radiographic Imaging Specimen (Source) Anatomical Collection Method Collection Time Re ceived Time Location / / Volume Laterality 03/22/2011 11:14 AM EDT Narrative 03/22/2011 2:38 PM EDT RIGHT SHOULDER: HISTORY: ??One month history of progress yadi pain. TECHNIQUE: ??Four views, no comparison f ilms. FINDINGS: ??There is a focal calcificati on in the region of the rotator cuff insertion suggestive of calcific tendino jeni or bursitis. This measures approximately 7 mm. There is mild-to-mod erate arthropathy in the AC joint. The glenohumeral joint appears unremarkable. CONCLUSION: ?? 1. Calcific cuff tendinopathy or bursiti s. 2. [id number] AC arthropathy. Procedure Note Rocael Atwood MD - 03/22/2011Formatt ing of this note might be different from the original. RIGHT SHOULDER: HISTORY: One month history of progressiv e pain. TECHNIQUE: Four views, no comparison ute ms. FINDINGS: There is a focal calcification in the region of the rotator cuff insertion suggestive of calcific tendino jeni or bursitis. This measures approximately 7 mm. There is mild-to-mod erate arthropathy in the AC joint. The glenohumeral joint appears unremarkable. CONCLUSION: 1. Calcific cuff tendinopathy or bursiti s. 2. Noyj-fv-beoczonn AC arthropathy. Omar PEARSON IMG DX ORDERABLES documented in this encounter Visit Diagnoses Diagnosis Tendinitis, calcific, shoulder Calcifying tendinitis of shoulder Calcifying tendinitis of shoulder documented in this encounter Care Teams Marketing Strategy Analyst Relationship Specialty Start Date End Date Juan Carlos Rodriguez MD PCP - General 05/31/10 01/28/13 [address] [place] [address] documented as of this encounter
--- OUTSIDE RECORDS SUMMARY | 2022-01-13 23:20 | XMS_ITS | Encounter Summary ---
:1955 Author Organization [facility] [place] [address] Care Team Providers Name Role Phone Simon Mojica MD Primary Care Provider Encounter Details Date Type Department Care Team Description 04/23/2018 Hospital Encounter Radiology Library at Dm Mojica MD [facility] [place] [id number] [place] [id number] [phone] Social History Tobacco Use Types Packs/Day Years [...] Associated Diagnosis Comme nts FILM LIBRARY Routine 04/23/2018 12:00 AM Results for this STORAGE ONLY MR EDT procedure ar e in HEAD the results section. documented in this encounter Results Film Library- Storage Only MR Head (04/23/2018 12:00 AM EDT) Specimen (Source) Anatomical Location Collection Method / Collectio n Time Received Time / Laterality Volume Narrative YESI RAD - 05/17/2018 7:33 PM EST This exam is for storage only and is aut o-finalizing. Simon Mojica MD IMG FILM LIBRARY ORDERABLES Performing Organization Address City/State/ZIP Code Phon e Number [place], [place] documented in this encounter Visit Diagnoses Not on filedocumented in this encounter Care Teams Dye And Chemical Coordinator Relationship Specialty Start Date End Date Simon Mojica MD PCP - General 01/29/[address] [place] [address] documented as of this encounter
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
--- OUTSIDE RECORDS SUMMARY | 2022-01-13 23:21 | XMS_ITS | Encounter Summary ---
:1955 Author Organization [facility] Address [address] [place] [address] Care Team Providers Name Role Phone Simon Mojica MD Primary Care Provider Unavailable Reason for Visit Reason Comments Cognitive Changes Encounter Details Date Type Department Care Team Description 05/29/2013 Office Visit [facility] Judson Huerta, Memory loss (Primary Memory Program - PhD Dx) Medical Office [address], Rehab [phone] [place] [address] [phone] Social History Tobacco Use Types Packs/Day Years Used Date Never Assessed Sex Assigned at Date Recorded Not on file documented as of this encounter Discharge Disposition Disposition Code Departure Means Destination Auto Discharge documented in this encounter Progress Notes Judson Huerta, PhD - 06/03/2013 0954 EST NEUROPSYCHOLOGICAL EVALUATION Bharathi Mora was seen for neuropsychological evaluation on 05/29/2013. He was referred by Dr. Simon Mojica ([facility]) and was seen as an outpatient at the Medical Office Building on the [facility]. PERTINENT BACKGROUND INFORMATION: Mr. Mora was born in [facility] [facility] and grew up in [place]. His mother is living at age 84: his father at age 84 due complications of emphysema and diabetes. He is the second of five children in his family. An older brother of AIDS at age 37. He has three younger brothers, two that reside in the area and one is out of state. He graduated from high school in 1973. He reports repeating two grades due to problems with reading. 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 He currently resides in [place] with Leandra Mora, his of about 15 years, and their two children, ages11 and 13. Mr. Mora reports a medical and neurological history that is negative for stroke/TIA, seizures/epilepsy, TBI/concussion, meningitis/encephalitis, known toxic exposure and migraine. His history is significant for hypertension, obesity, peripheral vascular disease, pulmonary embolism ([facility] admission 2008) and depression. His family history is negative for dementia and psychiatric disorder. PRESENTING PROBLEM: [facility]. [facility] declining memory and other cognitiveissues. He believes that his memory has been a problem for about a year. However, his has notedmore subtle changes over about the last five years or so. The problems got significant enough that it began to affect his functioning at home. Consequently, they began discussing it with his primary care provider. He was therefore referred for a brain CT scan on 04/09/2013, which was apparently read asnormal. He was also referred to this service for comprehensive neuropsychological evaluation to document his current level of mental functioning and to assist in his ongoing diagnostic work-up. BEHAVIORAL OBSERVATION: Mr. Mora presented as 57 year-old man who arrived early for his appointment, accompanied by his . He was marginally groomed and casually dressed. He was quite obese and ambulated with a cane for stability. His affect was somewhat bland during the interview. He was fully c ooperative during the evaluation but was somewhat of a vague historian at times. On testing, a degree of psychomotor slowness was apparent. Also on testing, he was extremely reluctant to guess if uncertain of an answer. He was able to tolerate the full day of testing without evidence of fatigue interfering with his performance. INTERVIEW FINDINGS / SUBJECTIVE REPORT OF SYMPTOMS: Information obtained from Mr. Mora during thestructured clinical interview, including his current symptoms and present functioning, is detailed below. 1. Sensory and perceptual symptoms: He has been bothered with chronic back pain, and rated his discomfort as 0 of 10 severity at the time of the interview. His vision is okay with corrective lenses. Hereports that his hearing is diminished at times. He is not aware of any changes or problems with tactile sensation, smell or taste. 2. Physical and motor symptoms: His balance is somewhat off, particularly when going from sit to stand. However, he denies falls. His strength has declined over time. He denies problems with fine motorfunctioning. His physical endurance, including standing tolerance, are diminished due to his chronicback issues. 3. Communication symptoms: He is not aware of any problems with his speech or with his auditory comprehension. He indicates that his reading has always been weak and there has been no change in his from his baseline. Likewise, when writing, his spelling is always been poor. 4. Cognitive symptoms: His basic orientation is intact, although he acknowledges being confused at times about the exact date. He is able to concentrate on one thing at a time reasonably; however, he is not able to divide his attention between multiple tasks, as he will forget what he is doing during the transition. His memory for old history, such as major events in his life, is okay. He does struggle recalling recent events and conversations, the latter can be forgotten within 20 minutes. He does have difficulties with prospective memory, for which he compensates by putting information into his cell phone and also logging it on the marker board at home. He is not aware of problems with procedural memory, such as performing multiple-step tasks or using familiar technology. He is constantly misplacing belongings such as his cane, keys and reminder lists. His math skills are reportedly intact. Hehas difficulty with planning and time management; he has trouble sticking with the plan, and often runs over the allotted time to do something, and consequently is often late. He acknowledges some difficulty with decision making and problem solving. 5. Psychological and emotional symptoms: He acknowledges having depression on and off for the last 15 years but he is not on any sort of antidepressant medication at this time. He has experienced increased frustration over his physical limitations in the past and also now due to his mental limitations. He reports that his sleep onset is okay but he does have frequent nocturnal awakenings and the trouble getting back to sleep. He reports that his sleep is nonrestorative and his energy is typically low. His appetite is fine and he reports that he has dropped about 200 pounds over the last 15 years. He denies passive wishes for , suicidal ideation, hallucinations and delusions. He does not use alcohol. He was a past two pack per day smoker, but quit around 1982. He obtained a score of 21 on theBeck Depression Inventory-II, which falls in the moderate range, and a score of 8 on the Sanchez Anxiety Inventory, which falls in the mild range of severity. 6. Adaptive daily activity: He reports that he showers daily. He manages his own medications. As hiswife is working now, he does most of the cooking and laundry and helps with the cleaning. His does most of the shopping now due to his memory problems. She also does most of the bill paying and financial aid coordinator. He has been disabled from full-time employment for some time. He reports no problems with driving safety or with navigation. For leisure he enjoys watching movies and listening to the radio. 7. Financial and/or legal issues: He has been receiving Social Security Disability benefits since 2007 due to lower extremity DVTs. INFORMATION REPORTED BY FAMILY OR OTHERS: Leandra Mora () was available to provide additional information about Mr. Mora's cognitive functioning and daily activities. As previously indicated, she has been aware of his cognitive issues for about five years, reporting a gradual onset and slow continued decline. She essentially reports all of the same and memory issues that her acknowledged, including difficulties with recent conversations, misplacing belongings and prospective memory (unless entered into his phone). She has not noticed any changes in his basic communication skills. She agrees that he has been managing his basic self-care and his medications adequately and independently. She notes that he has been struggling some doing his woodworking, due to organizational problems in his shop. She has observed no problems with his driving safety or navigation. Emotionally, she hasobserved him to become increasingly frustrated over his physical and cognitive limitations. She reports that he has had chronically low self-esteem and also has been afraid of rejection, and his emerging problems and limitations further compromise his sense of self-worth. NEUROPSYCHOLOGICAL FINDINGS: Mr. Mora was administered a battery of neuropsychological tests, evaluating a range of brain-behavior functions. His performance on these measures is reviewed below. 1. Orientation: He was adequately oriented to self, date/time, place and situation. He was able to recall the name of the current president, but not that of his predecessor. 2. Attention and processing speed: His ability to focus attention and sustain concentration during the performance of cognitive tasks was low average. He did have somewhat more problems on tasks requiring simultaneous manipulation of two stimulus sets (days/numbers; numbers/letters). His mental processing speed fell in the low average range overall. 3. Motor functioning: He is right -hand dominant. Upper extremity simple motor speed was low averagewith the right hand and average with the left hand. Basic radar scientist strength was low average, bilaterally. 4. Sensory-perceptual functioning: On the sensory-perceptual examination, he was within normal limits for visual, auditory, and tactile sensory functioning. On other measures of perceptual functioning,visual scanning on matching and sequencing tasks was performed from low average to average. 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 5. Communication skills: His spontaneous speech was somewhat sparse in production, with him responding only to direct questions and generating little spontaneous conversation. Upon testing, object naming to confrontation was in the average range; he was able to correctly identify 55 of 60 pictures. His expressive vocabulary fell in the low average range. He made no errors repeating single words and one simple error repeating sentences. His verbal fluency ranged from low average (FAS) the average (animal names). Auditory comprehension was within normal limits. His handwriting sample revealed largelylegible printed text with a high number of spelling errors. 6. Memory functioning: His overall recall memory functioning fell in the mildly impaired range, withhis verbal memory and visual spatial memory being equivalent. Immediate recall of orally-presented verbal information (short stories; word lists) was borderline impaired. Delayed recall of verbal material fell in the mildly impaired range. Immediate recall of visually-presented spatial material (visual patterns; complex figures) was borderline impaired. Delayed recall of visuospatial information fellin the mildly impaired range. Delayed recognition memory was somewhat better than his free recall memory, suggesting that some material is stored but not readily retrieved. His capacity to improve memory retention over repeated learning trials was quite weak for verbal material (5-7-7-9-5 of 16) and only fair for visual spatial material (3-4-5 of 10). 7. Reasoning skills: His verbal reasoning skills ranged from borderline impaired for word-pair similarities to average for functional verbal problem solving. His general fund of knowledge fell in the low average range. Visuospatial problem solving varied from low average to high average and fell in the normal range overall. Mental math problems solving was performed in the borderline impaired range. Abstract conceptual problem solving, requiring novel hypothesis generation and testing, was quite weak; he completed only 3 of 6 card sorts and committed a high number of perseverative errors. 8. Intellectual skills: He obtained the following index scores on the WAIS-IV: Verbal Comprehension 81; Perceptual Reasoning 98; Working Memory 83; Processing Speed 81. He also obtained a Full Scale Score of 83, which falls in the low average range and at the 13th percentile. 9. Symptom validity testing: He was administered multiple measures of cognitive symptom validity. All but one of the test scores fell within the acceptable range, suggesting that he had been able to maintain sufficient effort throughout the full day of testing, and that the obtained test results are likely reasonable estimates of his underlying cognitive abilities. SUMMARY AND IMPRESSION: Mr. Bharathi Mora is a 57 year-old, right-handed, man with 12 years of education. [facility] with an apparent five-year history of mild cognitive changes, with more significant issues emerging over the last year or so. Thus far, he has been demonstrating only mild changes in adaptive daily functioning as a result of his cognitive issues. Due to concerns about his mental functioning, he was referred to this service for comprehensive neuropsychologicalevaluation to document his current level of cognitive functioning and to assist in his on going diagnostic workup. The current evaluation finds Mr. Mora to be functioning in the low average range intellectually and the borderline to low average range across the majority of tested neuropsychological domains. Areas of relative strength identified upon testing include basic communication skills, spatial organization, and functional verbal reasoning. Areas of relative weakness identified include mental processing speed, all aspects of learning and memory, and abstract reasoning. Psychologically, he presents as someone experiencing mild to moderate adjustment difficulties secondary to his current life stressors. The overall configuration of Mr. Mora's test findings is consistent with at least mild cerebral dysfunction. At least a portion of his score suppression is undoubtedly chronic, as suggested by his longstanding reading and other school- related difficulties. However, he probably is still functioning below his baseline level of mental ability, particularly in the area of learning/memory. This is reflected in his test performance and supported by reports of his daily forgetfulness. 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 This unfortunately is a nonspecific diagnosis and does not point any particular etiology. Given his medical history, a vascular basis for his cognitive changes would appear to be a primary candidate. Sleep disorder also could be a contributor here. Other progressive neurodegenerative disorders, such a early onset Alzheimer's, seemto be of lower likelihood. Although he has adjustment disorder with depressive symptoms, his mood dis turbance is presumably in reaction to his cognitive issues and not the source of them. I would be happy to see Mr. Mora for retesting in about a year to determine if there as been interval change in his mental functioning. DIAGNOSIS: 780.93 Memory loss TOTAL TIME: 6 hrs - Time includes 4 [place] [address] performed by a psychologist (this time consisted ofinterview, test administration, scoring and report preparation) and 2 hrs of [address] performed by a hvac/r service technician (this time was separate from that of the psychologist). documented in this encounter Plan of Treatment Not on filedocumented as of this encounter Visit Diagnoses Diagnosis Memory loss - Primary documented in this encounter Care Teams Dental Detail Representative Relationship Specialty Start Date End Date Simon Mojica MD PCP - General 04/14/13 [address] [place] [address] documented as of this encounter
--- OUTSIDE RECORDS SUMMARY | 2022-01-13 23:21 | XMS_ITS | Encounter Summary ---
:1955 Author Organization [facility] Address [address] [place] [address] Care Team Providers Name Role Phone Unknown, Provider Primary Care Provider Encounter Details Date Type Department Care Team Description 08/21/2011 Results Only [facility] Nithya Muñiz MD [phone] [address] [facility] [address] [place] [address] (Wo rk) Social History Tobacco Use Types Packs/Day Years Used Date Never Assessed Sex Assigned at Date Recorded Not on file documented as of this encounter Plan of Treatment Not on filedocumented as of this encounter Procedures Procedure Name Priority Date/Time Associated Diagnosis Comme nts CYTOPATHOLOGY Routine 08/21/2011 0:00 EST Results for this procedure are i n the results section . documented in this encounter Results CYTOPATHOLOGY (08/21/2011 0:00 EST) Pathology Report: CYTOPATHOLOGY REPORT [facility] Reports generated via electronic interface contain rica ginal data; however they are lacking the format of the original re port. Caution should be taken when reading/interpreting unfo rmatted reports. Name: ? CARLEEN MORA ? Accession #: ? [id number] : ? 1955 (Age: 56) ??M ?Collect Date: ? 08/09 Location: ? [facility] ? Receive Date : ? 08/22/2011 Provider: ? NITHYA MUÑIZ MD Copy to: ?MARIA R DC MD ? CYTOLOGIC DIAGNOSIS: ? Urine, voided, cytologic evaluation: - No malignant cells identified. ??See comment. ? COMMENT: ? The specimen consists predominant ly of benign appearing squamous cells. Rare degenerated, but benign appearing urothelial cell s are present in the background. ??[place]Dr. Holland[place] [place] reviewed and electronically signed by: ? RAMÓN HOLLAND MD Report Date: ??08/22/2011 17:08 By the signature above, the attending physician certif ies that he/she has personally conducted a gross and/or microscopic examin ation of the described specimens and rendered or confirmed the above diagnosi s. Specimen Type: ? Urine, Voided Clinical History: ? Hematuria ? Gross Description: ? One vial of Cytolyt was received and processed by selective cellular enhancement technique. ? End of Report Specimen Performing Organization Address City/State/ZIP Code Phon e Number [facility] [address] [place] [address] [facility] [address] [place] [address] documented in this encounter Visit Diagnoses Not on filedocumented in this encounter Care Teams Rn Endocrinology Relationship Specialty Start Date End Date Unknown, Provider, PCP - General 08/22/11 04/13/13 documented as of this encounter
--- OUTSIDE RECORDS SUMMARY | 2022-01-13 23:21 | XMS_ITS | Encounter Summary ---
:1955 Author Organization [facility] Address [address] [place] [address] Care Team Providers Name Role Phone Simon Mojica MD Primary Care Provider Unavailable Reason for Visit Reason Comments Eye Problem Eval of fluid in Retina Encounter Details Date Type Department Care Team Description 09/04/2017 Office Visit [facility] Stuart Bennett MD Ophthalmology - [address], [address], [address] [place], [place] [address] [place] [address] [phone] (Wo rk) Social History Tobacco Use Types Packs/Day Years Used Date Former Smoker Smokeless Tobacco: Never Used Alcohol Use Standard Drinks/Week Comments No 0 (1 standard drink = 0.6 oz pure alcoho l) Sex Assigned at Date Recorded Not on file documented as of this encounter Last Filed Vital Signs Vital Sign Reading Time Taken Comments Blood Pressure 136/98 09/04/2017 1321 EST Pulse - - Temperature - - Respiratory Rate - - Oxygen Saturation - - Inhaled Oxygen Concentration - - Weight - - Height - - Body Mass Index - - documented in this encounter Discharge Diagnoses Diagnosis Z86.19 Personal history of other infecti ous and parasitic diseases-Z86.19[ICD-10-CM] H17.9 Unspecified corneal scar and opaci ty-H17.9[ICD-10-CM] H25.13 Age-related nuclear cataract, lesly ateral-H25.13[ICD-10-CM] H35.369 Drusen (degenerative) of macula, unspecified eye-H35.369[ICD-10-CM] documented in this encounter Discharge Disposition Disposition Code Departure Means Destination Auto Discharge documented in this encounter Progress Notes Rocael Bennett MD - 09/04/2017 1300 EST Chief Complaint Patient presents with ??? Eye Problem Eval of fluid in Retina HPI Location: Left eye Pain: 0 - No pain Quality: Blurry Severity: Duration: Months Timing: Constant Lasts: Continuous Context: can now see better without glasses but for reading better with glasses Modifying factors: no distortion. blurry VA left eye - depends on how he is constrating on ipad can make VA better by blinking but sometimes floaters get in the way Associated Signs & Symptoms: right eye seems to be stable Visual Fluctuations: Floaters Attestation: NPV: Blurry VA left eye since June. Moderately. Constant. No pain. No new F and F. Hx of Shingles in June. Base Eye Exam Visual Acuity (Snellen - Linear) Right Left Dist cc 20/20 -2 20/100 -2 Dist ph cc 20/50 -2 Tonometry (Applanation, 13:46) Right Left Pressure 14 16 Pupils Pupils Dark Right PERRL 4 Left PERRL 6 Visual Bloom Right Left Result Full Full Confirmed by Dr Bennett. Extraocular Movement Right Left Result Full Full Neuro/Psych Oriented x3: Yes Mood/Affect: Normal Dilation Both eyes: 1.0% Mydriacyl, 2.5% Phenylephrine @ 13:49 Additional Tests Color Right Left Ishihara 05/19 05/19 Slit Lamp and Fundus Exam Slit Lamp Exam Right Left Lids/Lashes Normal Normal Conjunctiva/Sclera White and quiet White and quiet Cornea Lots of SPK; Lots of SPK; Subepithelial scarring Anterior Chamber Deep and quiet Deep and quiet Iris prom vessel at 6 Round and reactive Lens 2+ Nuclear sclerosis 2+ Nuclear sclerosis Fundus Exam Right Left Disc Normal Normal C/D Ratio 0.5 0.5 Macula no gross cystic changes.Couple of Drusen changes. No SRF; No Heme; No HE no gross cystic changes. No HE;No SRF; No Heme; Vessels Normal Normal Periphery Normal Normal OCT REPORT Indications: Retinal Edema. Findings: Right Eye Left Eye Retinal Thickening increased. Retinal Thickening increased. Original test to be found in patients shadow chart Impression: 1. History of shingles OCT (OPHTHALMIC DIGITAL IMAGING, POSTERIOR SEGMENT) 2. Corneal scar, left eye 3. Nuclear senile cataract of both eyes 4. Drusen OCT (OPHTHALMIC DIGITAL IMAGING, POSTERIOR SEGMENT) Assess/Plan: Hx of Shingles, left side Cornea look hazy Corneal scarring Lots of SPK and Subepithelial scarring. Recommended to set up appt with Dr MENDOZA to evaluate Recommended to do IVFA/Photos Acute Phase left eye today. Pt would like to have involved in process. NS Cataract,both Carleen Mora was instructed that he has a cataract, but the cataract is not severe enough to requiresurgery at this time. Drusen Pt informed that they have a mild aging picture ( drusen) in their retina, The problem is not severeenough that AREDS vitamins are reccommended at this time. We did advise the use of an amsler grid daily and advised the patient to call their eye care providers immediately if the grid changes or if they have the sense that their central vision is worsening. Advised to keep future eye care appointments as scheduled This office note has been dictated. Note to Zachary Padron and to Dr MENDOZA I, Dr. Bennett, have performed my own HPI and reviewed the tech's ROS. I have also reviewed the patient's past medical, family, social and surgical history, as well as the patient's medications, allergies, and problem list. I am scribing for Dr. Rocael Bennett MD while he is personally performing the service. ANGELINA Noel (Scribe) Rocael Malone MD - 09/04/2017 0000 EST [facility] OPHTHALMOLOGY September 04, 2017 Zachary Brandon OD [address] [facility], [address] [place] [address] RE: CARLEEN MORA : 1955 Dear Abdirashid, Carleen Mora was seen today in the retina clinic. He gives me a history of lesions on his forehead and on his left cheek. 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 Vision in the left eye is blurry moderately to severely for several months in a continuous fashion. The patient has a really noticed any sudden changes in his vision. You were concerned about the possibility of wet AMD in his left eye and have asked me to evaluate. I have evaluated the following things in both eyes, confrontations visual bloom to count fingers, extraocular movements and eyes in primary position and these are all normal. (Normal confrontation visual bloom means visual bloom are full to count fingers in all six bloom. Extraocular movements normal means movements were full and concomitant. Eyes normal in primary position means eyes are straight in primary position.) I have examined the following ophthalmic exam components for this patient, inspection of bulbar and palpebral conjunctivae, ocular adnexa, which includes the lids, lacrimal glands, lacrimal drainage, orbits and preauricular lymph nodes, examination of pupils including shape, reaction and size, morphology not done due to mydriasis, irises were examined, presence or absence of rubeosis, corneal exam including epithelium, stroma, endothelium and tear film, anterior chambers including depth, cells and flare, lens exam including clarity, anterior and posterior capsule, cortex and nucleus. The above are all normal both eyes except nuclear sclerosis and subepithelial corneal scarring of mild to moderate degree. No anterior chamber inflammation was noted today. Funduscopic examination reveals about a 0.5 cup-to-disc ratio in each eye. Disc, macula, vessels andperiphery in the left eye look normal. In the right eye, the patient has a few drusen on the inferonasal edge of his fovea. There is no hemorrhage, hard exudate or subsensory subretinal fluid visible on clinical examination. OCT was done today, which does show some increase in central macular thickness, but there are no cystic changes and there is no subretinal process or elevation of the retina. Assessment: 1. Clinically, the patient has an occasional drusen in the right eye. I do not see any evidence of wet macular degeneration in either eye. 2. Increased central foveal thickness in both eyes, but no cysts. I do not think this represents wetmacular degeneration. 3. History of shingles/V1 zoster and also the patient notes V2 lesions. I am worried this might not have been shingles and might actually have been a herpes simplex problem. The patient has diffuse subepithelial haze in the left eye, maybe a mild disciform lesion. I am going to ask Dr Bryn Newsome to take a look at this. 4. Nuclear sclerosis, both eyes, looks presurgical to me. Thanks, Rich, for letting me take part in the care of this nice gentleman. I will ask Bryn to take a look and see what he thinks about the corneal status, which I think is what is holding his vision back in the left eye at this point. Sincerely, Rocael Bennett MD 04 24 PM - Rocael Bennett MD jn Dictation ID: [id number] cc: Zachary Brandon OD, [address] [place] [address], [address], [place] [address] documented in this encounter Plan of Treatment Scheduled Orders Name Type Priority Associated Diagnoses Order S chedule OCT (OPHTHALMIC Ophthalmology Routine History of shing les Ordered: 09/05/2017 DIGITAL IMAGING, Drusen POSTERIOR SEGMENT) documented as of this encounter Visit Diagnoses Diagnosis History of shingles - Primary Personal history of other infectious and parasitic disease Corneal scar, left eye Corneal opacity, unspecified Nuclear senile cataract of both eyes Drusen documented in this encounter Historical Medications This list may reflect changes made after this encounter. Medication Sig Dispensed Refills Start Date End Date LISINOPRIL ORAL Take by mouth. 0 warfarin (COUMADIN) 2.5 mg Take 2.5 mg by mouth 0 tablet daily. added in this encounter Eye Exam Visual Acuity (Snellen - Linear) Right eye Left eye Dist cc 20/20 -2 20/100 -2 Dist ph cc 20/50 -2 Tonometry (Applanation, 13:46) Right eye Left eye Pressure 14 16 Pupils Pupils Dark Right eye PERRL 4 Left eye PERRL 6 Visual Bloom Right eye Left eye Full Full Confirmed by Dr Benentt. Extraocular Movement Right eye Left eye Full Full Neuro/Psych Oriented x3: Yes Mood/Affect: Normal Dilation Both eyes: 1.0% Mydriacyl, 2.5% Phenylep hrine @ 13:49 Color Right eye Left eye Ishihara 05/19 05/19 Slit Lamp Exam Right eye Left eye Lids/Lashes Normal Normal Conjunctiva/Sclera White and quiet White and quiet Cornea Lots of SPK; Lots of SPK; Subepit helial scarring Anterior Chamber Deep and quiet Deep and quiet Iris prom vessel at 6 Round and reactive Lens 2+ Nuclear sclerosis 2+ Nuclear sclerosi s Fundus Exam Right eye Left eye Disc Normal Normal C/D Ratio 0.5 0.5 Macula no gross cystic changes.Couple of no long ss cystic changes. No HE;No Drusen changes. No SRF; No Heme; No HE S RF; No Heme; Vessels Normal Normal Periphery Normal Normal Care Teams Theater Technician Relationship Specialty Start Date End Date Simon Mojica MD PCP - General 04/14/13 [address] [facility] [place] [address] documented as of this encounter
--- OUTSIDE RECORDS SUMMARY | 2022-01-13 23:21 | XMS_ITS | Encounter Summary ---
:1955 Author Organization [facility] Address [address] [place] [address] Care Team Providers Name Role Phone Simon Mojica MD Primary Care Provider Unavailable Reason for Visit Reason Onset Date Comments Pharmacy 10/12/2017 Encounter Details Date Type Department Care Team Description 10/12/2017 Refill [facility] Boaz Newsome Ophthalmology - [facility] MD Demarcus [address] [facility] [address] [place], [place] [id number] [place] [address] [address], [address] [place], [place] [phone] (Wo rk) Social History Tobacco Use Types Packs/Day Years Used Date Former Smoker Smokeless Tobacco: Never Used Alcohol Use Standard Drinks/Week Comments No 0 (1 standard drink = 0.6 oz pure alcoho l) Sex Assigned at Date Recorded Not on file documented as of this encounter Miscellaneous Notes Telephone Encounter - Karen Carney RN - 10/12/2017 1527 EDT New script sent to pharmacy. Pharmacy was called to ensure they received script. Will fill for patient. ddendum Note - Karen Carney RN - 10/12/2017 1330 EDT Addended by: KAREN CARNEY on: 10/12/2017 13:30 Modules accepted: Orders elephone Encounter - Karen Carney RN - 10/12/[address] Jensen who stated to use what Dr. Jay had prescribed for the antiviral. Called pharmacy who stated that Dr. Jay stated to use what Dr. Jensen had prescribed for an antiviral. Pharmacy is goingto fill the Valacyclovir and needed new script. elephone Encounter - Africa Rosario - 10/12/[address] YOUNG has pt on Acyclovir 800mg routinely and Dr. Jensen sent for Valacyclovir routinely as well, thepharmacy wants to know if this is OK to use both, if there was a consult between both doctors or if we should adjust medications. documented in this encounter Plan of Treatment Not on filedocumented as of this encounter Visit Diagnoses Not on filedocumented in this encounter Care Teams Database Software Technician Relationship Specialty Start Date End Date Simon Mojica MD PCP - General 04/14/[address] [facility] [address] [place], [place] [address] documented as of this encounter
--- OUTSIDE RECORDS SUMMARY | 2022-01-13 23:21 | XMS_ITS | Encounter Summary ---
:1955 Author Organization [facility] Address [address] [place] [address] Care Team Providers Name Role Phone Simon Mojica MD Primary Care Provider Unavailable Reason for Visit Reason Comments Shingles Pt. here for evaluation with H/O shingles, SPK, corneal scar left eye, macular drusen, last seen by Dr. Bennett on 09/04/17 with suggestion of FA at that time. Pt. states some v isual symptoms including floaters since shingles, and past week some decrease in vision left eye. some challenges at night with lights. Pt. also will see squiggly worms with bubbles in vision at times that move. Encounter Details Date Type Department Care Team Description 09/14/2017 Office Visit [facility] Boaz Newsome Ophthalmology - Barry Tracy MD [address] [address] [address], [place] [address] (Wo rk) Social History Tobacco Use Types Packs/Day Years Used Date Former Smoker Smokeless Tobacco: Never Used Alcohol Use Standard Drinks/Week Comments No 0 (1 standard drink = 0.6 oz pure alcoho l) Sex Assigned at Date Recorded Not on file documented as of this encounter Discharge Diagnoses Diagnosis B00.52 Herpesviral keratitis-B00.52[ICD- 10-CM] H17.9 Unspecified corneal scar and opaci ty-H17.9[ICD-10-CM] H18.12 Bullous keratopathy, left eye-H18 .12[ICD-10-CM] documented in this encounter Ordered Prescriptions Prescription Sig Dispensed Refills Start Date End Date valACYclovir (VALTREX) 1 Take 1 Tab by mouth 60 Tab 11 03 /03/2018 10/08/2017 gram tablet 2 times daily. prednisoLONE (PRED FORTE) Place 1 Drop into 1 Bottle 3 03/201810/08/2017 1 % ophthalmic suspension the left eye 4 times daily. documented in this encounter Discharge Disposition Disposition Code Departure Means Destination Auto Discharge documented in this encounter Progress Notes Boaz Newsome MD - 09/14/2017 1030 EST Department of Ophthalmology / Cataract/Cornea Office Visit Note Referring physician: Clarisse Munoz Local Eye Buckle Wire Inserter: Family Physician (PCP): Simon Mojica Other Physician: History of Present Illness: This HPI section must be documented by the physician (or scribe upon the dictation of the physician). It should not be documented independently by the health technician hearing/scribe in the absence of the physician. Patient presents with ??? Shingles Pt. 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 He was seen by Dr. Bennett for AMD evaluation on 09/04/17, who recommended the patient have a corneal consult. He sees Dr. Munoz in [place], [place]. He denies eye pain. He has had increased floaters in his left eye since was diagnosed with shingles. He closes his left eye while driving at night due to glare. Pain: 0 / 10 Both Eyes Flashes: No Floaters: Yes Controls: Diabetes :No Hypertension:Yes Tobacco:No EXAMINATION: Base Eye Exam Visual Acuity (Snellen - Linear) Right Left Dist cc 20/20 -2 20/200 Dist ph cc NI Near cc J2 20/400 Correction: Glasses Says he cannot see thru the pinholes with his left eye due to 'floaters' Tonometry (Applanation, 12:57) Right Left Pressure 16 22 Pupils Dark Light React APD Right 4 3 Brisk None Left 4 3 Brisk None Per SP Visual Bloom Right Left Result Full Full Extraocular Movement Right Left Result Full Full Neuro/Psych Oriented x3: Yes Mood/Affect: Normal Additional Tests Amsler Right Left Amsler Normal Pt. states sees central dot only Color Right Left Ishihara 8/8 4/8 Slit Lamp and Fundus Exam Slit Lamp Exam Right Left Lids/Lashes Normal Ptosis-mild Conjunctiva/Sclera White and quiet 2+ Injection Cornea 1+ Punctate epithelial erosions diffuse stromal and microcystic edema, small bullae nasally and temporally, diffuse scarring, 2+ Punctate epithelial erosions, no epithelial defect Anterior Chamber shallow temporally, quiet shallow temporally, hazy view, ?flare and trace cells Iris Round and reactive Round and reactive Lens mild Cortical cataract, mild Nuclear sclerosis mild Cortical cataract, mild Nuclear sclerosis OPHTHALMOLOGY TESTING: [To insert test results, first enter the results in Doc Flowsheet and then use dot phrase .OPHTESTEXAM to choose the results module(s) to pull into this note] PENTACAM Report Test done: Pentacam of both eyes Indications: Findings: Right Eye: Left Eye: Original test to be found in patients shadow chart Impact on Plan: IMPRESSION / PLAN: Encounter Diagnoses Name Primary? Herpes keratitis of left eye Yes ??? Corneal scar, left eye ??? Bullous keratopathy of left eye ??? Iritis of left eye ??? Mixed type age-related cataract, both eyes -poor visual acuity in his left eye is secondary to corneal scarring and edema, which apparently developed about four months ago when he was diagnosed with herpes zoster keratitis. I agree with Dr. Bennett that it would be unusual for him to have experienced lesions on his left forehead and cheek in the setting of herpes zoster ophthalmicus (which affects the forehead and upper eyelid and the lateral aspect of the nose, corresponding to the V1 dermatome of the fifth, or trigeminal cranial nerve), which raises the possibility that he actually had herpes simplex keratitis. I think that he likely did experience herpes zoster keratitis, but the possibility that he actually had herpes simplex keratitis e xists. -discussed poor prognosis for recovery of visual acuity in his left eye without corneal transplant surgery, which I do not recommend due to the increased risk of corneal graft rejection in patients with herpetic keratitis. He does not wish to undergo corneal transplant surgery in any case -he has iritis affecting his left eye, and bullous keratopathy which is not painful at this point. Gio concerned that untreated iritis affecting his left eye could cause problems such as synechiae andsecondary glaucoma. Plan: Will defer corneal transplant surgery, although such a procedure could be considered for his left eye if he develops eye pain which is not amenable to medical treatment, or if visual acuity in his right eye worsens (with the likelihood of a good outcome of such a procedure, however, being low). Start Pred Forte qid left eye, Edna 128 gianluca qHS left eye and Valtrex 1000 mg po bid. I advised him to wear eyeglasses with protective lenses full-time, to prevent eye injury, given his functionally monocular status, and he may wear a patch over his left eye with night driving. He will follow-up in one month with IOP check. We will send this note to Dr. Munoz. Scribe Attestation: I am scribing for Boaz Newsome MD while he is personally performing the service. Tatiana Dueñas (Scribe) Time spent: documented in this encounter Plan of Treatment Not on filedocumented as of this encounter Visit Diagnoses Diagnosis Herpes keratitis of left eye - Primary Corneal scar, left eye Corneal opacity, unspecified Bullous keratopathy of left eye Bullous keratopathy Iritis of left eye Mixed type age-related cataract, both ey es documented in this encounter Historical Medications This list may reflect changes made after this encounter. Medication Sig Dispensed Refills Start Date End Date Glucosamine Sulfate Take 1 Cap by mouth. 0 (GLUCOSAMINE) 500 mg tablet FINASTERIDE ORAL Take 1 Cap by mouth. 0 metoprolol (LOPRESSOR) 50 Take 50 mg by mouth 0 mg tablet 2 times daily. added in this encounter Eye Exam Visual Acuity (Snellen - Linear) Right eye Left eye Dist cc 20/20 -2 20/200 Dist ph cc NI Near cc J2 20/400 Correction: Glasses Says he cannot see thru the pinholes with his left eye due to 'floaters' Tonometry (Applanation, 12:57) Right eye Left eye Pressure 16 22 Pupils Dark Light React APD Right eye 4 3 Brisk None Left eye 4 3 Brisk None Per SP Visual Bloom Right eye Left eye Full Full Extraocular Movement Right eye Left eye Full Full Neuro/Psych Oriented x3: Yes Mood/Affect: Normal Amsler Right eye Left eye Normal Pt. states sees cent ral dot only Color Right eye Left eye Ishihara 8/8 4/8 Slit Lamp Exam Right eye Left eye Lids/Lashes Normal Ptosis-mild Conjunctiva/Sclera White and quiet 2+ Injection Cornea 1+ Punctate epithelial erosions diffuse stromal and microcystic edema, small bullae nasally and temporally, diffuse scarring, 2+ Punctate epithelial erosions, no epithelial defect Anterior Chamber shallow temporally, quiet shallow tempor ally, hazy view, ?flare and trace faiza ls Iris Round and reactive Round and reactive Lens mild Cortical cataract, mild mild Cortic al cataract, mild Nuclear sclerosis Nuclear sclerosis Care Teams Yard Pilot Relationship Specialty Start Date End Date Simon Mojica MD PCP - General 04/14/13 [address] [facility] [place] [address] documented as of this encounter
--- OUTSIDE RECORDS SUMMARY | 2022-01-13 23:21 | XMS_ITS | Encounter Summary ---
:1955 Author Organization [facility] Address [address] [place] [address] Care Team Providers Name Role Phone Simon Mojica MD Primary Care Provider Unavailable Encounter Details Date Type Department Care Team Description 09/20/2020 Lab Requisition [facility] Outr Resulting Lab, Pathology & Laboratory Provider [facility] [address], [place] [id number] Social History Tobacco Use Types Packs/Day Years Used Date Former Smoker Smokeless Tobacco: Never Used Alcohol Use Standard Drinks/Week Comments No 0 (1 standard drink = 0.6 oz pure alcoho l) Sex Assigned at Date Recorded Not on file documented as of this encounter Plan of Treatment Not on filedocumented as of this encounter Procedures Procedure Name Priority Date/Time Associated Diagnosis Comme nts COVID-19 TEST [facility] Today 09/20/2020 10:42 LAB PCR EDT COVID-19 TESTING Routine 09/20/2020 10:42 Results for this EDT procedure are i n the results section. documented in this encounter Results COVID-19 TEST [facility] LAB PCR (09/20/2020 10:42 EDT) Specimen Swab - Entire nasopharynx (body structur e) Performing Organization Address City/State/ZIP Code Phon e Number [facility] [address] [place] [address] SERVICES (ABNORMAL) COVID-19 TESTING (09/20/2020 10:42 EDT) COVID-19 rt-PCR Positive (AA) Negative [facility] Result Comment: [facility] This test has not been FDA c leared or approved. This test has been authorized by FDA under an EUA for use by authorized laboratories. This test has been authorized only for detection of nucleic acid fro SERVICES m 2018-nCoV, not for any oth er viruses or pathogens. This test is only authorized for the duration of the declaration that circumstances exist justifying the authorization of emergency use of in vitro d iagnostic tests for detectio n and/or diagnosis of 2019-nCoV under section 564(b)(1) of Act, 21 U.S.C ?? 360bbb-3(b) (1), unless the authorization is terminated or revoked sooner. This test was developed and its performance characteristics determined by [facility]. It has not been cleared or approved by the US Food and Drug Administration. FDA does not require this test to go through premarket FDA review. This t est is used for clinical purposes. It should not be regarded as investigational or for research. This laboratory is certified under the Clinical Laboratory Improvement Amendm ents (CLIA) as qualified to perform high complexity clinical laboratory testing. This test is based on the CD C COVID-19 Emergency Use Authorization (EUA) assay, with minor modification as defined by the FDA Performed on the eBillme Pro RT-PCR System. Performing Lab [facility] SERVICES Specimen Swab Performing Organization Address City/State/ZIP Code Phon e Number [facility] [address] [place] [address] SERVICES documented in this encounter Visit Diagnoses Not on filedocumented in this encounter Additional Health Concerns Infection Onset Date Last Indicated Resolved Time COVID-19 09/20/2020 09/20/2020 10/20/2020 22:15 EDT documented as of this encounter Care Teams Fusing Machine Operator Relationship Specialty Start Date End Date Simon Mojica MD PCP - General 04/14/13 [address] [place] [address] documented as of this encounter
--- OUTSIDE RECORDS SUMMARY | 2022-01-13 23:21 | XMS_ITS | Encounter Summary ---
:1955 Author Organization [facility] Address [address] [place] [address] Care Team Providers Name Role Phone Simon Mojica MD Primary Care Provider Unavailable Reason for Visit Reason Comments Eye Exam 1 month f/u bullous keratopa thy left eye with IOP check. Left eye vision is not as blurry as previously; right eye is fine. No new floaters flashes. Silverio n 07/18 Medication Management Pred Forte 2-3x daily left e ye, Edna 128 gianluca qHS left eye and Valtrex 1000 mg po once belle y and sometimes twice. 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 prednisoLONE (PRED FORTE) Place 1 Drop into 1 Bottle 3 08/201701/04/2018 1 % ophthalmic suspension the left eye daily. documented in this encounter Discharge Disposition Disposition Code Departure Means Destination Auto Discharge documented in this encounter Progress Notes Boaz [place] MD - 10/08/2017 1015 EDT Department of Ophthalmology / Cataract/Cornea Office Visit Note Referring physician: Clarisse Munoz Local Eye Piccoloist: Family Physician (PCP): Simon Mojica Other Physician: History of Present Illness: This HPI section must be documented by the physician (or scribe upon the dictation of the physician). It should not be documented independently by the biometrics technician/scribe in the absence of the physician. Patient presents with ??? Eye Exam 1 month f/u bullous keratopathy left eye with IOP check. Left eye vision is not as blurry as previously; right eye is fine. No new floaters flashes. Pain 1/10 ??? Medication Management Pred Forte 2-3x daily left eye, Edna 128 gianluca qHS left eye and Valtrex 1000 mg po once daily and sometimes twice. Pain: 1 / 10 Left Eye Flashes: No Floaters: Yes Controls: Diabetes :No Hypertension:Yes Tobacco:No EXAMINATION: Base Eye Exam Visual Acuity (Snellen - Linear) Right Left Dist cc 20/20 -2 20/150 -2 Dist ph cc 20/40-1 Tonometry (Applanation, 10:31) Right Left Pressure 16 13 Neuro/Psych Oriented x3: Yes Mood/Affect: Normal Slit Lamp and Fundus Exam Slit Lamp Exam Right Left Lids/Lashes Normal Ptosis-mild Conjunctiva/Sclera White and quiet Trace Injection nasally Cornea Clear, no scarring or fluor uptake Diffuse subepithelial/anterior stromal scarring , 1+ Punctate epithelial erosions Anterior Chamber shallow temporally, quiet Deep and quiet Iris Round and reactive Round and reactive Lens mild Cortical cataract, mild Nuclear sclerosis mild Cortical cataract, mild Nuclear sclerosis Refraction Wearing Rx Sphere Cylinder [place] Add Right +0.25 +0.75 014 +2.50 Left +0.50 +1.25 158 +2.50 Age: 6m Type: Bifocal OPHTHALMOLOGY TESTING: [To insert test results, first enter the results in Doc Flowsheet and then use dot phrase .OPHTESTEXAM to choose the results module(s) to pull into this note] IMPRESSION / PLAN: Encounter Diagnoses Name Primary? Corneal scar, left eye Yes ??? Mixed type age-related cataract, both eyes ??? 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 I recommend ongoing treatment with topical steroids, with the risks and benefits of this treatment discussed. Also recommend ongoing use of systemic antiviral medications, as he may have experienced herpes simplex keratitis previously (as he experienced a rash on his cheek as well as his forehead, which would be unusualfor herpes zoster keratitis). He will taper his topical steroids (prednisolone acetate 1% gtt) down to one drop per day in his left, and will continue taking valacyclovir 500 mg daily (or may use acyclovir 400 mg per day for the same purpose). He will continue using Edna 128 gianluca qHS in his left eye. He prefers to follow-up here on a prn basis. We will send this note to Dr. Munoz. I appreciate beinginvolved in his care and would be happy to see him back any time. Scribe Attestation: I am scribing for Boaz [place] MD while he is personally performing the service. Gifty Rodrigez (Scribe) Time spent: documented in this encounter Plan of Treatment Not on filedocumented as of this encounter Visit Diagnoses Diagnosis Corneal scar, left eye - Primary Corneal opacity, unspecified Mixed type age-related cataract, both ey es Herpes keratitis of left eye documented in this encounter Discontinued Medications Medication Sig Discontinue Reason Start Date End Date prednisoLONE (PRED FORTE) Place 1 Drop into Order modification 03/201810/08/2017 1 % ophthalmic suspension the left eye 4 times daily. valACYclovir (VALTREX) 1 Take 1 Tab by Order modification 8 10/08/2017 gram tablet mouth 2 times daily. documented as of this encounter Historical Medications This list may reflect changes made after this encounter. Medication Sig Dispensed Refills Start Date End Date methylphenidate HCl Take 10 mg by 0 (RITALIN;METHYLIN) 5 mg mouth 2 times tablet daily. sodium chloride (EDNA 128) Place 0.25 inch 0 01/14/2018 5 % ophthalmic ointment ribbon into the left eye at bedtime. added in this encounter Eye Exam Visual Acuity (Snellen - Linear) Right eye Left eye Dist cc 20/20 -2 20/150 -2 Dist ph cc 20/40-1 Tonometry (Applanation, 10:31) Right eye Left eye Pressure 16 13 Neuro/Psych Oriented x3: Yes Mood/Affect: Normal Slit Lamp Exam Right eye Left eye Lids/Lashes Normal Ptosis-mild Conjunctiva/Sclera White and quiet Trace Injection nasa lly Cornea Clear, no scarring or fluor Diffuse sube pithelial/anterior uptake stromal scarring , 1 + Punctate epithelial erosions Anterior Chamber shallow temporally, quiet Deep and quiet Iris Round and reactive Round and reactive Lens mild Cortical cataract, mild mild Cortic al cataract, mild Nuclear sclerosis Nuclear sclerosis Wearing Rx Sphere Cylinder [place] Add Right eye +0.25 +0.75 014 +2.50 Left eye +0.50 +1.25 158 +2.50 Age: 6m Type: Bifocal Care Teams Pattern Drafter Relationship Specialty Start Date End Date Simon Mojica MD PCP - General 04/14/13 [address] [facility] [place] [address] documented as of this encounter
--- OUTSIDE RECORDS SUMMARY | 2022-01-13 23:21 | XMS_ITS | Encounter Summary ---
:1955 Author Organization [facility] Address [address] [place] [address] Care Team Providers Name Role Phone Simon Mojica MD Primary Care Provider Unavailable Encounter Details Date Type Department Care Team Description 10/12/2017 [facility] MD Demarcus [address] [facility] [address] [id number] [place] [address] [address], [address] [place] [address] (Wo rk) Social History Tobacco Use Types Packs/Day Years Used Date Former Smoker Smokeless Tobacco: Never Used Alcohol Use Standard Drinks/Week Comments No 0 (1 standard drink = 0.6 oz pure alcoho l) Sex Assigned at Date Recorded Not on file documented as of this encounter Ordered Prescriptions Prescription Sig Dispensed Refills Start Date End Date valACYclovir (VALTREX) 500 Take 1 Tab by mouth 30 Tab 11 10/12/2017 mg tablet daily. documented in this encounter Plan of Treatment Not on filedocumented as of this encounter Visit Diagnoses Not on filedocumented in this encounter Discontinued Medications Medication Sig Discontinue Reason Start Date End Date valACYclovir (VALTREX) 1 Take 0.5 Tabs by 10/08/2017 10/12/2017 gram tablet mouth daily. documented as of this encounter Care Teams Tank Welder Relationship Specialty Start Date End Date Simon Mojica MD PCP - General 04/14/[address] [place] [address] documented as of this encounter
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
--- OUTSIDE RECORDS SUMMARY | 2022-01-13 23:21 | XMS_ITS | Clinical Summary ---
:1955 Author Organization [facility] Address [address] [place] [address] Care Team Providers Name Role Phone Simon Mojica MD Primary Care Provider Unavailable Allergies No known active allergies Medications Medication Sig Dispensed Refills Start Date End Date Status warfarin (COUMADIN) 2.5 Take 2.5 mg by 0 Active mg tablet mouth daily. LISINOPRIL ORAL Take by mouth. 0 Active metoprolol (LOPRESSOR) 50 Take 50 mg by 0 Active mg tablet mouth 2 times daily. FINASTERIDE ORAL Take 1 Cap by 0 Active mouth. Glucosamine Sulfate Take 1 Cap by 0 Active (GLUCOSAMINE) 500 mg mouth. tablet methylphenidate HCl Take 10 mg by 0 Active (RITALIN;METHYLIN) 5 mg mouth 2 times tablet daily. valACYclovir (VALTREX) Take 1 Tab by 30 Tab 11 10/12/2017 Active 500 mg tablet mouth daily. prednisoLONE (PRED FORTE) Place 1 Drop 1 Bottle 3 01/14/2018 Active 1 % ophthalmic suspension into the left eye 3 times daily. Tid X 3 days then bid X 3 days then daily left eye sodium chloride (ELOISA Place 0.25 inch 1 Tube 12 01/14/2018 Active 128) 5 % ophthalmic ribbon into the ointment left eye at bedtime. Active Problems Problem Noted Date Corneal scar, left eye 09/14/2017 Mixed type age-related cataract, both eyes 09/14/2017 Herpes keratitis of left eye 09/14/2017 Iritis of left eye 09/14/2017 Retinal edema 09/04/2017 Surgical History Surgery Date Site/Laterality Comments APPENDECTOMY Medical History Medical History Date Comments Blood clot in vein 1983 Mixed type age-related cataract, both eyes 09/14/2017 Family History Medical History Relation Name Comments Cancer Father Diabetes Father Relation Name Status Comments Father Social History Tobacco Use Types Packs/Day Years [...] - - Body Mass Index - - Plan of Treatment Health Maintenance Due Date Last Done Comments Fall Risk Screening 2018 Advance Directives For more information, please contact: [phone] Documents on File Type Date Recorded Patient Project Administrator Explanati on Advance Directives and Living Will Power of Cereal Chemist Care Teams [employer] Professional Relationship Specialty Start Date End Date Simon Mojica MD PCP - General 04/14/13 [address] [facility] [place] [address]
--- OUTSIDE RECORDS SUMMARY | 2022-01-13 23:21 | XMS_ITS | Encounter Summary ---
:1955 Author Organization [facility] Address [address] [place] [address] Care Team Providers Name Role Phone Simon Mojica MD Primary Care Provider Unavailable Reason for Visit Reason Onset Date Comments Eye Problem 09/10/2017 daughter needs last note Encounter Details Date Type Department Care Team Description 09/10/2017 Telephone [facility] Stuart Bennett MD Eye Problem (daughter Ophthalmology - [address] [place] needs last note) [address] [place] [address] [address], [place] [address] (Wo rk) Social History Tobacco Use Types Packs/Day Years Used Date Former Smoker Smokeless Tobacco: Never Used Alcohol Use Standard Drinks/Week Comments No 0 (1 standard drink = 0.6 oz pure alcoho l) Sex Assigned at Date Recorded Not on file documented as of this encounter Miscellaneous Notes Telephone Encounter - Haley Cunningham OTA - 09/10/2017 0952 EST Sent last note. Plan elephone Encounter - Domi Raymundo - 09/10/2017 0933 EST Pt was seen recently for an exam, but he has poor memory issues and his Leandra would like a e-mail ([email or web address] or call regarding his eyes so she knows how to help him with them. I called and spoke with the pt who gave verbal permission to discuss anything with his . documented in this encounter Plan of Treatment Not on filedocumented as of this encounter Visit Diagnoses Not on filedocumented in this encounter Care Teams Motor Home Electrical Foreman Relationship Specialty Start Date End Date Simon Mojica MD PCP - General 04/14/13 [address] [facility] [address] documented as of this encounter
--- OUTSIDE RECORDS SUMMARY | 2022-01-13 23:21 | XMS_ITS | Encounter Summary ---
:1955 Author Organization [facility] Address [address] [place] [id number] Care Team Providers Name Role Phone Simon Mojica MD Primary Care Provider Unavailable Reason for Visit Reason Onset Date Comments Medications Refill 03/08/2019 pharm for refill Encounter Details Date Type Department Care Team Description 03/08/2019 Telephone [facility] Boaz Newsome edications Refill Ophthalmology - [facility] MD Demarcus (pharm for refill) Sh[place] [address] [place] [id number] [place] [address] [place], [address] [place] [address] (Wo rk) Social History Tobacco Use Types Packs/Day Years Used Date Former Smoker Smokeless Tobacco: Never Used Alcohol Use Standard Drinks/Week Comments No 0 (1 standard drink = 0.6 oz pure alcoho l) Sex Assigned at Date Recorded Not on file documented as of this encounter Miscellaneous Notes Telephone Encounter - Giuseppe Melendez - 03/08/2019 1041 EDT PAS Message: Lenny from [facility] called for order of sodium chloride eye ointment documented in this encounter Plan of Treatment Not on filedocumented as of this encounter Visit Diagnoses Not on filedocumented in this encounter Additional Health Concerns Infection Onset Date Last Indicated Resolved Time COVID-19 09/20/2020 09/20/2020 10/20/2020 22:15 EDT documented as of this encounter Care Teams Service Crew Supervisor Relationship Specialty Start Date End Date Simon Mojica MD PCP - General 04/14/13 [id number] [facility] [place] [address] documented as of this encounter
--- OUTSIDE RECORDS SUMMARY | 2022-01-13 23:21 | XMS_ITS | Encounter Summary ---
:1955 Author Organization [facility] Address [address] [place] [address] Care Team Providers Name Role Phone Simon Mojica MD Primary Care Provider Unavailable Encounter Details Date Type Department Care Team Description 01/16/2018 Orders Only [facility] Yunier Landa MD Ophthalmology - [address], [address], [address] [place], [place] [address] [place], [place] [phone] [id number] (Wo rk) Social History Tobacco Use Types Packs/Day Years Used Date Former Smoker Smokeless Tobacco: Never Used Alcohol Use Standard Drinks/Week Comments No 0 (1 standard drink = 0.6 oz pure alcoho l) Sex Assigned at Date Recorded Not on file documented as of this encounter Progress Notes Ana Landa MD - 01/16/2018 1806 EDT Authorized refill for patient's Valtrex. documented in this encounter Plan of Treatment Not on filedocumented as of this encounter Visit Diagnoses Not on filedocumented in this encounter Care Teams Veneer Glue Spreader Relationship Specialty Start Date End Date Simon Mojica MD PCP - General 04/14/13 [id number] [address] [place], [place] [address] documented as of this encounter
[2022-01-13 23:38] LABS: Source Nasal/Nares
[2022-01-14 00:24] VITALS: BP 133/65; PULSE 68; RESP 14; TEMP 36.2; O2SAT 92
[2022-01-14 00:30] LABS: COVID-19 PCR Negative (Negative)
--- NOTE | 2022-01-14 00:37 | HPE_ITS ---
Date of service: 01/14/22 Time of Service: 00:37 Assessment and Plan Assessment and plan (1) C5 cervical fracture: Status: Acute Assessment and plan: This looks like the only major injury resulting from his fall. Images reviewed in ED with [facility], he has the appopriate ASPEN collar and a plan for follow up with them. For now, we will continue managing pain, plan to work with PT, possibly OT for safety and function. (2) Ambulatory dysfunction: Status: Acute Assessment and plan: As noted above he has had progress ambulatory dysfunction with significant falls. Has improved with PT in past, try again. This seems to be related to a neurodegenerative process along with this arthritis, peripheral vascular disease. (3) Dementia: Status: Chronic Assessment and plan: This has been progressing requiring a lot of care by and children. He has seen Palliative. Qualifiers: Dementia type: Alzheimer's disease Alzheimer's disease onset: other onset Dementia behavioral disturbance: without behavioral disturbance Qualified Code(s): G30.8 - Other Alzheimer's disease; F02.80 - Dementia in other diseases classified elsewhere without behavioral disturbance (4) PVD (peripheral vascular disease): Status: Chronic Assessment and plan: on ASA and apixaban, no statin, defer to PCP as clearly there must be a reason. (5) Fibrotic lung diseases: Status: Acute Assessment and plan: seen on imaging. Per his SOB symptoms have been chronic, not new. This should be evaluated as an outpatient. (6) Chronic anticoagulation: Status: Chronic Assessment and plan: Continue apixaban given h/o PE. (7) Discharge planning issues: Status: Acute Assessment and plan: Previously did not want hospitalization, but wanted it today. He is DNR/DNI. Some concern for need for terminal makeup operator placement, care management conculted. History of Present Illness History of Present Illness Chief Complaint: fall, neck pain Narrative: 66 yo M with early onset Alzheimers type dementia, h/o DVT and PE on chronic apixaban, peripheral vascular disease, and unstable gait with history of falls and admisssion for pneumothorax in November 2021, who presented after loosing balance and falling on gravel driveway and hitting his back and head. He was at his baseline prior to fall. He had gotten out of the car and was stepping away from the rear of the car when he rotated and fell to the side of the vehicle. He had no chest pain, dizziness, palpitations, or other symptoms before the fall. He did his his head, but did not loose consciousness. His was unable to get him up and ambulance was called. Mr. Mora is unsteady on his feet and stiff in this movement chronically. He has had progressive dementia and needs constant supervision by family. There have been no recent changes to his care. His last change in medication was starting sertraline about 6 mo ago, which has helped his mood. Review of Systems Constitutional Constitutional: Denies chills, Denies fever(s), Reports frequent falls and Reports weight loss (was over 400lbs, lost a lot of weight over years but this has slowed) Eyes Eyes: Denies change in vision and Denies loss of vision ENT Ears, Nose, Mouth, and Throat: Denies vertigo, Denies dizziness, Denies mouth pain, Denies nasal discharge and Reports disequilibrium Cardiovascular Cardiovascular: Denies chest pain, Denies syncope, Denies palpitations and Reports orthopnea (chronic) Respiratory Respiratory: Denies cough and Denies excessive phlegm production Gastrointestinal Gastrointestinal: Denies abdominal pain, Denies constipation, Denies diarrhea, Denies nausea and Denies vomiting Genitourinary Genitourinary: Denies difficulty urinating and Denies dysuria Integumentary/Breasts Skin/Breast: Denies rash, Denies skin ulcer and Reports wounds Neurologic Neurologic: Denies vertigo, Denies dizziness, Denies syncope, Reports frequent falls, Denies localized weakness, Denies loss of vision, Denies tremor(s) and Reports disequilibrium Psychiatric Psychiatric: Denies mood swings Endocrine Endocrine: Denies palpitations Hematologic/Lymphatic Hematologic/Lymphatic: Denies easy bleeding PFSH All Active Problems (Updated 01/14/22 @ 01:16 by Simon Turner) Fibrotic lung diseases (Acute) Discharge planning issues (Acute) Pneumothorax (Acute) Hand injury (Acute) C5 cervical fracture (Acute) Fall (Acute) Onychomycosis (Acute) Palliative care patient (Acute) Dysphagia (Acute) Intertrigo (Acute) Ambulatory dysfunction (Acute) Weakness (Acute) 2021- improved with PT Weight loss (Acute) AV block, 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) Dementia (Chronic) 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) Chronic anticoagulation (Chronic) for pulmonary embolism- on embolism PVD (peripheral vascular disease) (Chronic) BPH (benign prostatic hyperplasia) (Chronic) Mitral insufficiency (Chronic) Varicose veins of lower extremity (Chronic) Peripheral venous insufficiency (Chronic) Heart murmur, systolic (Chronic 02/05/18) Generalized osteoarthrosis (Chronic) mostly when it is cold Medical History ADHD (attention deficit hyperactivity disorder), 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) 2021- no longer using adderall Alzheimer disease Carpal tunnel syndrome (02/16/11) DVT (deep venous thrombosis) Essential hypertension (04/07/13) when obese GERD (gastroesophageal reflux disease) Hypertension 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 Brother Diabetes Heart disease Brother Heart disease Social History (Updated 01/14/22 @ 00:53 by Simon Turner) Smoking/Tobacco Use Status: Former Tobacco Use tobacco type: cigarettes Quit Date: 07/09/78 Second Hand Exposure: Yes Smoking risk assessment performed?: Yes Alcohol Intake: never Drug use: Never Substance use type: does not use Caregiver/Support person: Yes Household members: spouse and children Housing: house Number of Children: 2 Do you need help understanding health information?: Always Pets and animals: No (Rabbit) Sexually active: No Do you think of yourself as: straight/heterosexual Current gender identity: male What is your relationship status?: How often do you talk on the phone with friends or family?: once per week How often do you get together with friends or relatives?: once per week How often do you attend denominational or worship services?: 4 or more times per year Do you belong to any clubs or organized social groups?: no Panel score (0-1 are the most socially isolated patients): 2 What type of physical activity do you participate in: walking Duration: < 15 minutes/day Frequency: daily Mikaela/Latter-Day: Adventism Seatbelt use: always Drive intox or ride w/intox truck driver teamster: No Do you feel safe at home: Yes Do you feel safe in your relationship?: Yes Additional Social history: Lives with Leandra in [place], and 2 kids help care for him Meds Allergies and Home Medications Allergies Allergy/AdvReac Type Severity Reaction Status Date / Time gluten Allergy Intermediate Verified 01/13/22 17:00 peanut AdvReac Mild DIARRHEA Verified 01/13/22 17:00 Home Medications Medication Instructions Recorded Confirmed Type cyanocobalamin (vitamin B-12) 1,000 mcg PO DAILY 07/30/18 01/13/22 History 1,000 mcg tablet,extended release (Vitamin B-12 ER) aspirin 81 mg tablet,delayed 81 mg PO DAILY 06/04/19 01/13/22 History release (Adult Aspirin Regimen) glucosamine sulfate 1,000 mg 2,000 mg PO BID 10/28/20 01/13/22 History capsule cholecalciferol (vitamin D3) 50 50 mcg PO DAILY 12/01/20 01/13/22 History mcg (2,000 unit) capsule apixaban 5 mg tablet 5 mg PO BID #180 tabs 05/13/21 01/13/22 Rx finasteride 5 mg tablet (Proscar) 5 mg PO DAILY #90 tab-caps 05/13/21 01/13/22 Rx prednisolone acetate 1 % eye 1 drp ophthalmic (eye) DAILY 07/26/21 01/13/22 History drops,suspension valacyclovir 500 mg tablet 500 mg PO DAILY #90 tabs 10/03/21 01/13/22 Rx nystatin 100,000 unit/gram topical 1 applic topical BID #60 grams 11/22/21 01/13/22 Rx powder sertraline 50 mg tablet 50 mg PO DAILY #90 tabs 12/08/21 01/13/22 Rx Exam Narrative Exam Narrative: GEN: Alert and oriented to self only, not month/year or town but knows he is in hospital. Pleasent and cooperative, gives some history but fills in most details. Somewhat gaunt appearing. No acute distress at rest. HEENT: Head atraumatic. Conjunctiva clear, no icterus. PEERL, EOMI. no rhinorrhea or bleeding. MMM, OP benign. Neck is supple with no masses or lymphadenopathy, trachea midline LUNGS: CTAB except mild diffuse end inspiratory wheese. Norrmal effort at rest CV: RRR with no murmurs, gallops, or rubs. ABD: +BS, soft, NT/ND EXT: no cyanosis, clubbing, or edema. hard superficial veins left leg (chronic) MSK: No joint redness or swelling NEURO: CN 2-12 grossly intact. Moves 4 extremities but stiffly, increased tone, strength intact. nl sensation to lightly touch. Normal speech. SKIN: No open wounds. bruise over scapula, tender red linear edmond over mid back to lower back. old bruise right thigh. PSYCH: normal mood and affect Results Imaging Chest x-ray: report reviewed (IMPRESSION: 1. Pulmonary fibrosis. 2. Possible new ground-glass opacity within the right upper lobe.) Additional studies: CT cervical spine/Head: 1. No acute intracranial process.? 2. Mildly displaced fracture of the anterior aspect of the inferior endplate of C5. 3. Progressive changes seen in the lung apices since 2018.? Interstitial disease, infection or inflammation should be considered.? Please correlate with the patient's clinical symptoms.? XR cervical spine: Acute nondisplaced fracture involving the inferior endplate of C5. negative thoracic/lumbar spine CT. hip XR, femur and tib/fib. Labs Result diagrams: 01/13/22 17:50 01/13/22 17:50 Labs: Laboratory Results - last 24 hr 01/13/22 01/13/22 01/13/22 17:50 17:50 17:50 WBC 7.16 RBC 3.62 L Hgb 12.0 L Hct 36.3 L MCV 100 H MCH 33.1 H MCHC 33.1 RDW 12.6 Plt Count 157 MPV 10.9 Immature Gran % 0.6 Neutrophils % 78.2 Lymphocytes % 8.9 Monocytes % 8.7 Eosinophils % 3.2 Basophils % 0.4 Nucleated RBC % 0.0 Absolute Neutrophils 5.60 Absolute Lymphocytes 0.64 L Absolute Monocytes 0.62 Absolute Eosinophils 0.23 Absolute Basophils 0.03 PT 11.5 H INR 1.1 APTT 25.5 Sodium 140 Potassium 4.1 Chloride 102 Carbon Dioxide 34.3 H Anion Gap 3.7 BUN 27 H Creatinine 0.7 Estimated GFR/1.73 m2 >= 60.00 Glucose 111 H Calcium 8.3 L Total Bilirubin 0.3 AST 25 ALT 21 Alkaline Phosphatase 56 Total Protein 6.6 Albumin 2.9 L COVID-19 Source SARS-CoV-2 (PCR) 01/13/22 23:25 WBC RBC Hgb Hct MCV MCH MCHC RDW Plt Count MPV Immature Gran % Neutrophils % Lymphocytes % Monocytes % Eosinophils % Basophils % Nucleated RBC % Absolute Neutrophils Absolute Lymphocytes Absolute Monocytes Absolute Eosinophils Absolute Basophils PT INR APTT Sodium Potassium Chloride Carbon Dioxide Anion Gap BUN Creatinine Estimated GFR/1.73 m2 Glucose Calcium Total Bilirubin AST ALT Alkaline Phosphatase Total Protein Albumin COVID-19 Source Nasal/Nares SARS-CoV-2 (PCR) Negative Last Vital Signs Temp 36.2 C L 01/14/22 00:24 Pulse 68 01/14/22 00:24 Resp 14 01/14/22 00:24 BP 133/65 01/14/22 00:24 Pulse Ox 92 01/14/22 00:24
--- NOTE | 2022-01-14 01:00 | DI.VRAD_ITS ---
PROCEDURE INFORMATION: Exam: XR Right Tibia and Fibula Exam date and time: 01/13/2022 11:54 PM Age: 66 years old Clinical indication: Injury or trauma; Blunt trauma; Lower leg; Right; Injury date: 01/13/22; Injury details: Fall, leg pain TECHNIQUE: Imaging protocol: Radiologic exam of the Right tibia and fibula. Views: 2 views. COMPARISON: CR RIGHT ANKLE COMPLETE 07/19/2017 7:38 AM FINDINGS: Bones/joints: No fracture. No dislocation. Mild narrowing and osteophytes noted at the ankle. Mild chronic sclerosis and remodeling at the talar dome. Mild narrowing noted at the knee. Soft tissues: Musculature is moderately atrophic. No soft tissue air. Vasculature: Severe arterial calcifications noted in the trifurcation arteries. Numerous soft tissue calcifications noted in the calf, likely venous phleboliths. IMPRESSION: No acute osseous abnormality. If symptoms persist, follow-up imaging is advised. Dictated and Authenticated by: Demarcus Sousa MD. Ordering:SIOBHAN Sandra MD
--- NOTE | 2022-01-14 01:02 | DI.VRAD_ITS ---
PROCEDURE INFORMATION: Exam: XR Right Femur Exam date and time: 01/13/2022 11:53 PM Age: 66 years old Clinical indication: Injury or trauma; Blunt trauma; Hip and thigh or upper leg; Right; Injury date: 01/13/22; Injury details: Fall, leg pain TECHNIQUE: Imaging protocol: Radiologic exam of the Right femur. Views: 2 views. COMPARISON: CR XR PELVIS AP 01/13/2022 6:41 PM FINDINGS: Bones/joints: No fracture. No dislocation. Right pubic rami are intact. Bone mineralization appears low. Soft tissues: Musculature is moderately atrophic. No abnormal soft tissue air. Vasculature: Severe arterial calcifications noted. Other findings: Artifact from overlying clothing or bedding noted. IMPRESSION: No acute osseous abnormality. If symptoms persist, follow-up imaging is advised. Dictated and Authenticated by: Demarcus Sousa MD. Ordering:SIOBHAN Sandra MD
[2022-01-14] MEDS: Acetaminophen 325 MG TAB PO (01:39)
[2022-01-14 03:48] VITALS: BP 139/81; PULSE 60; RESP 16; TEMP 36.9; O2SAT 95
[2022-01-14 07:25] VITALS: BP 129/79; PULSE 56; RESP 14; TEMP 36.1; O2SAT 97
[2022-01-14] MEDS: oxyCODONE 5 mg/Acetaminophen 325 mg TAB 1 TAB PO (08:19)
[2022-01-14] MEDS: Apixaban 5 MG TAB PO (08:19)
[2022-01-14] MEDS: Sertraline 50 MG TAB PO (08:19)
[2022-01-14] MEDS: Cholecalciferol (Vitamin D3) 1,000 UNIT TAB 2000 UNITS PO (08:20)
[2022-01-14] MEDS: Cyanocobalamin 500 MCG TAB 1000 MCG PO (08:20)
[2022-01-14] MEDS: Aspirin E.C. 81 MG TABEC PO (08:20)
[2022-01-14] MEDS: Finasteride 5 MG TAB PO (08:20)
[2022-01-14] MEDS: valACYclovir 500 MG TAB PO (08:20)
--- NOTE | 2022-01-14 10:30 | PDOC.CMIN ---
- If Service Date Differs Date of service: 01/14/22 Time of Service: 10:30 Care Management Initial Assess REASON FOR HOSPITALIZATION:: C5 fracture, fall PAST MEDICAL HISTORY/PAST SURGICAL HISTORY:: All Active Problems. Fibrotic lung diseases (Acute). Discharge planning issues (Acute). Pneumothorax (Acute). Hand injury (Acute). C5 cervical fracture (Acute). Fall (Acute). Onychomycosis (Acute). Palliative care patient (Acute). Dysphagia (Acute). Intertrigo (Acute). Ambulatory dysfunction (Acute). Weakness (Acute). 2021- improved with PT. Weight loss (Acute). AV block, 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). Dementia (Chronic). 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). Chronic anticoagulation (Chronic). for pulmonary embolism- on embolism. PVD (peripheral vascular disease) (Chronic). BPH (benign prostatic hyperplasia) (Chronic). Mitral insufficiency (Chronic). Varicose veins of lower extremity (Chronic). Peripheral venous insufficiency (Chronic). Heart murmur, systolic (Chronic 02/05/18). Generalized osteoarthrosis (Chronic). mostly when it is cold. Medical History. ADHD (attention deficit hyperactivity disorder), 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). 2021- no longer using adderall. Alzheimer disease. Carpal tunnel syndrome (02/16/11). DVT (deep venous thrombosis). Essential hypertension (04/07/13). when obese. GERD (gastroesophageal reflux disease). Hypertension. 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 Paroxysmal SVT (supraventricular tachycardia). Pneumothorax on right. Pulmonary embolism. on eliquis. Surgical History. IVC filter (~2008). 2009. Status post appendectomy. age 10 PREVIOUS FUNCTIONAL STATUS/SOCIAL/FAMILY SUPPORTS:: Bharathi resides with his , Leandra, and children in [place], [place]. He has a caregiver who comes into the home once per week. Per risk assessment consultant, Bharathi requires total assistance with bathing, dressing and toileting and some assistance with ambulation as well. Leandra and their children all assist with Bharathi's care. CURRENT FUNCTIONAL STATUS:: Bharathi was sitting up in a chair when CM met with him. His , Leandra, and daughter were in the room visiting. Leandra stated that they have resources in the community that have helped manage his care, including Palliative care and [facility], who assisted in obtaining longwall shearer operator RAÚL for Bharathi. She stated that they work with [employer] to have paid caregivers. She is happy to have the additional support of HH RN, PT, OT post hospitalization. CM will continue to follow. ADVANCE DIRECTIVES:: [facility] on file. Has patient been provided with info about the portal/API?: Yes Did the patient sign up for the portal?: Yes (active) CODE STATUS:: DNR/DNI INSURANCE COVERAGE / FINANCIAL ISSUES:: MCR/RAÚL (aid [place], which is traditional RAÚL, but per Leandra (), Bharathi has longwall shearer operator RAÚL which allows for them to have paid caregivers at home). CURRENT HOME/COMMUNITY SERVICES/EQUIPMENT:: Bharathi has support from his family and a caregiver who comes to the home. He also has support from [facility] and Palliative care. PRIMARY CARE PHYSICIAN:: Leonor Rose POTENTIAL DISCHARGE NEEDS:: Evaluations for further needs, follow up appointments. PATIENT/FAMILY EDUCATION NEEDS:: Review discharge instructions regarding activity levels and medications, discussion of self care needs including ask me three. ANTICIPATED BARRIERS TO DISCHARGE:: Family has expressed difficulty of care at home. TRANSPORTATION:: Via private vehicle by family. PLAN:: Anticipate Bharathi will return home when medically cleared with new orders for HH. He will be driven home via private vehicle by family. He will follow up with his PCP and discharge plan of care. CM will continue to follow.
--- NOTE | 2022-01-14 10:58 | PT.INIE ---
Date of service: 01/14/22 Time of Service: 10:58 PT Notes Visit Reasons: C5 fracture, fall Physical Therapy Inpatient Initial Evaluation Date: 01/14/2022 Referring Doctor:? Simon Turner MD PT Orders: PT CONSULT: Fall safety assessment. Safety consult for D/C Precautions: Fall. Standard. Activity as tolerated. Vining collar on at all times, may be removed for hygiene with correct stabilization of head and neck by a second person/caregiver. Patient Profile/Admitting Diagnosis:? Patient is 66-year-old palliative care male patient who presented to the ED on 01/14/2022 with pain in head, neck, and hip due to a mechanical fall.? Patient is diagnosed with a non-displaced C5 fracture and was given a cervical collar by admitting MD, ambulatory dysfunction, and fibrotic lung disease. PMHX: All Active Problems?(Updated 01/14/22 @ 01:16 by Simon Turner) Fibrotic lung diseases (Acute) Discharge planning issues (Acute) Pneumothorax (Acute) Hand injury (Acute) C5 cervical fracture (Acute) Fall (Acute) Onychomycosis (Acute) Palliative care patient (Acute) Dysphagia (Acute) Intertrigo (Acute) Ambulatory dysfunction (Acute) Weakness (Acute) 2021- improved with PT Weight loss (Acute) AV block, 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) Dementia (Chronic) 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) Chronic anticoagulation (Chronic) for pulmonary embolism- on embolism PVD (peripheral vascular disease) (Chronic) BPH (benign prostatic hyperplasia) (Chronic) Mitral insufficiency (Chronic) Varicose veins of lower extremity (Chronic) Peripheral venous insufficiency (Chronic) Heart murmur, systolic (Chronic 02/05/18) Generalized osteoarthrosis (Chronic) mostly when it is cold Medical History? 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 IVC filter (~2009) 2009Status post appendectomy age 10 Social History/Home Situation: Lives with and 2 daughters in a private home with 2 steps to enter.? Independent with indoor and outdoor ambulation with single-point cane. has a lady who also comes in once a week to provided needed assistance. Equipment Owned/DME: SPC, FWW Subjective: Denies headache and neck pain. Did report some discomfort on the L side of his sacrum that subsided with use of pillow to sit on. reports that moves close to baseline during today's mobility assessment. expresses that the plan is to go home when cleared to do so but she is also open to some kind of placement if needed although with today's performance, she indicated that how he moved is kind of a good sign for going home. Objective: General Observation: Supine in bed. Vining cervical collar in place. Leandra present throughout evaluation. Mental Status: Alert and oriented as to person and place. Able to pay attention, focus, and respond appropriately. Pain: Reports some discomfort in L sacrum with sitting Vital Signs: WNL when taken by BYPRODUCTS EXTRACTOR after ambulation activity ROM: Right Upper Extremity: ? Shoulder Flexion lacks 50% of available range of motion.? Shoulder abduction lacks 50% of available range of motion. Elbow flexion WFL. Wrist flexion WFL. Functional opening and closing of hand WFL. Left Upper Extremity:? Shoulder Flexion lacks 50% of available range of motion.? Shoulder abduction lacks 50% of available range of motion. Elbow flexion WFL. Wrist flexion WFL. Functional opening and closing of hand WFL. Right Lower Extremity: Hip flexion lacks 50% of of available range of motion. Hip abduction lacks 50% of of available range of motion. Knee flexion 20 degrees to 90 degrees.? Knee extension -20 degrees.? Ankle dorsiflexion to neutral only. Ankle plantarflexion WFL. Left Lower Extremity: Hip flexion lacks 50% of of available range of motion. Hip abduction lacks 50% of of available range of motion. Knee flexion 20 degrees to 90 degrees.? Knee extension -20 degrees.? Ankle dorsiflexion to neutral only. Ankle plantarflexion WFL. Strength: Right Upper Extremity: Shoulder flexors 3-/5. Shoulder abductors 3-/5. Elbow flexors 3-/5. Elbow extensors 5/5. Pet Stylist weak but functional. Left Upper Extremity: Shoulder flexors 3-/5. Shoulder abductors 3-/5. Elbow flexors 3-/5. Elbow extensors 5/5. Pet Stylist weak but functional. Right Lower Extremity: Hip flexors 3-/5. Hip abductors 3-/5. Knee flexors 3-/5. Knee extensors 3-/5. Ankle dorsiflexors 3-/5. Ankle plantarflexors 4-/5. Left Lower Extremity: Hip flexors 3-/5. Hip abductors 3-/5. Knee flexors 3-/5. Knee extensors 3-/5. Ankle dorsiflexors 3-/5. Ankle plantarflexors 4-/5. Bed Mobility/Transfers: Sit to supine minimal assist, moderate cues provided for correct technique Sit to stand contact guard assist, moderate cues provided for correct technique Stand to sit contact guard assist, moderate cues provided for correct technique Bed to reclining chair minimal assist, moderate cues provided for correct technique Gait: Patient tolerated level surface ambulation of 200 feet using FWW with wheelchair follow by Leandra.? Trunk anteroflexed. Elizabeth decreased. Denies headache, dizziness, and chest pain throughout session. Balance: Static Sitting: Good Dynamic Sitting: Fair Static Standing: Fair Dynamic Standing: Poor Special Tests: Mobility Limitations Standardized Measure [facility] 6 clicks Basic Mobility Inpatient Short Form: Raw Score: 15 CMS Score: 58% deficit Informed Consent/Education:? Patient was instructed in purpose of PT consult and plan of care. Patient and are agreeable to proceed with established PT POC to achieve personal goals. Assessment: Patient presents with clinical signs and symptoms consistent with current/admitting diagnoses that have resulted to mobility limitations, gait instability, generalized weakness, and overall ADL decline as demonstrated by the following impairment level findings: 1.? Decreased strength to B UE/LEmajor muscle groups 2.? Impaired sitting/standing balance 3.? Impaired activity tolerance 4.? Limitation of joint range of motion in major BUE and LE joints Impairments are contributing to the following functional limitations: 1.? Decline in bed mobility skills 2.? Decline in transfer skills 3.? Difficulty with ambulation without assistive device and physical assistance 4.? Increased completion time for mobility ADL performance 5.? Increased risk for falls 6.? Difficulty with managing steps alone safely Patient is assessed as a 71632 moderate complexity based on the following: History: 66-year-old male with past medical history as indicated above Examination: Demonstrable impairment in strength, balance, and mobility level with underlying impairments and functional limitations as exhibited above as well as deficit score of 61% utilizing the [facility] Mobility Inpatient Short Form Presentation: Evolving Decision Making:? 94131 moderate complexity Goals: Goals X1 week 1. Supine-Sit independent 2. Sit-Supine independent 3. Sit-Stand independent 4. Stand-Sit independent with FWW 5. Bed-Chair independent with FWW 6. Chair-Bed independent with FWW 7. Supervision with gait on level surface with use of FWW for at least 100 feet without report of pain nor dyspnea 8. Supervision stair negotiation while holding onto B rails for at least 5 steps without report of pain nor dyspnea 9. Good static and dynamic standing balance/tolerance Plan of Care/Treatment Plan: 1-2x/day, 7 days/week x 1 week. Plan of care has been reviewed with the CORKING MACHINE OPERATOR providing the service under Physical Therapy direction. Initiate Physical Therapy intervention for pain management as needed, strengthening, bed mobility, transfers, gait, stairs, balance training, and use of assistive device. DISCHARGE RECOMMENDATIONS: [] ? Home with no services [] [X] ? Home with services.? Home when medically cleared by hospitalist.? Patient will benefit from home health PT services in order to progress mobility level using least restrictive assistive ambulatory device, assess home safety, identify additional equipment needs, and establish a functional maintenance program that will increase ability of patient to remain at home. [] ? Home with outpatient PT [] [] ? SNF for continued rehabilitation [] [] ? [facility] [] [] ? SNF versus LTC based on ability to participate and progress [] TREATMENT CODE/TIME: 74489 x 20 minute, 11716 x 26 minutes beginning at 10:58 AM. Thank you for the opportunity to participate in the care of this patient. Sharonda Andrade PT, DPT, CLT [facility] [place], [place]
[2022-01-14 11:42] VITALS: BP 103/65; PULSE 62; RESP 22; TEMP 35.9; O2SAT 96
--- NOTE | 2022-01-14 12:14 | W.PM.DS.N ---
Date of service: 01/14/22 Time of Service: 12:22 DS: Diagnosis Discharge Diagnosis (1) C5 cervical fracture: Status: Acute (2) Ambulatory dysfunction: Status: Acute (3) Dementia: Status: Chronic (4) PVD (peripheral vascular disease): Status: Chronic (5) Fibrotic lung diseases: Status: Acute (6) Chronic anticoagulation: Status: Chronic Discharge Plan Disposition Patient Disposition: HOME W/HOME HEALTH SERVICE Condition: Stable Discharge Details Reason For Visit: C5 fracture, fall Admit Date/Time: 01/13/22 22:22 Admit Provider: Simon Turner Attending Provider: Simon Turner Primary Care Provider: [facility] Course Hospital Course: This is an 66 year old male with early onset Alzheimers type dementia, h/o DVT and PE on chronic apixaban, peripheral vascular disease, and unstable gait with history of falls and admission for pneumothorax in November 2021, who presented after loosing balance and falling on gravel driveway and hitting his back and head.? He was at his baseline prior to fall.? He had gotten out of the car and was stepping away from the rear of the car when he rotated and fell to the side of the vehicle.? He had no chest pain, dizziness, palpitations, or other symptoms before the fall.? He did his his head, but did not loose consciousness.? His was unable to get him up and ambulance was called. Mr. Mora is unsteady on his feet and stiff in this movement chronically.? He has had progressive dementia and needs constant supervision by family.? There have been no recent changes to his care.? His last change in medication was starting sertraline about 6 months ago, which has helped his mood. ? [place] [facility] [place], he has the appopriate ASPEN collar and a plan for follow up with them. He was referred for observation for PT consult and was evaluated in the am. He remained medically stable overnight and at his baseline. He was safely reambulated and deemed safe for discharge to home with home health services. discharge discussed with Dr Manning . Home Meds and New Rx's Prescriptions: New acetaminophen 325 mg Tablet 650 mg PO QID Qty: 1 0RF Continued cholecalciferol (vitamin D3) 50 mcg (2,000 unit) capsule 50 mcg PO DAILY nystatin 100,000 unit/gram powder 1 applic topical BID Qty: 60 4RF cyanocobalamin (vitamin B-12) [Vitamin B-12] 1,000 mcg tablet extended release 1,000 mcg PO DAILY aspirin [Adult Aspirin Regimen] 81 mg tablet,delayed release (DR/EC) 81 mg PO DAILY glucosamine sulfate 1,000 mg capsule 2,000 mg PO BID Rx Instructions: administer with a meal finasteride [Proscar] 5 mg tablet 5 mg PO DAILY Qty: 90 4RF apixaban 5 mg tablet 5 mg PO BID Qty: 180 4RF prednisolone acetate 1 % drops,suspension 1 drp ophthalmic (eye) DAILY valacyclovir 500 mg tablet 500 mg PO DAILY Qty: 90 4RF sertraline 50 mg tablet 50 mg PO DAILY Qty: 90 3RF Discharge Instructions Instructions: Cervical Fracture (ED) Additional Instructions: Please remain in your c-collar at all times. Please follow-up with Dr. Garcia (neurosurgery) at [facility] next week. Please return emerged part if he develop weakness numbness worsening pain change in behavior or other abnormal symptomatology. Stand Alone Forms: Nursing Discharge Form Referrals: Theron Mcmahon [ NON-[facility] REHAB STAFF PHYSICIAN] - (Office will call you with follow-up.) Leonor Rose NP [Primary Care Provider] - (follow-up with PCP) Activity:: Activity as Tolerated Equipment/Supplies:: aspen collar Diet:: As Tolerated Discharge Orders Discharge Orders: Discharge Order (Routine); Ordered 01/14/22 Ordered By: Africa Paz Discharge Data Discharge Date/Time-TO BE ENTERED AT DEPARTURE: 01/14/22 16:03 DS: Summary Time Spent with Patient providing and/or coordinating discharge services: Less than 30 minutes Status at Discharge Functional status at discharge: uses cane/walker Overall status at discharge: patient is progressing back to baseline Mental Status: mental status grossly normal Speech and Movement: speech and movement normal Mood: congruent mood Affect: normal affect Exam Const General: cooperative, no acute distress, well developed, anxious and ill appearing chronically (needs assistance with ambulation, very stiff) Nutritional Appearance: average body habitus and well nourished Orientation: alert, awake and oriented x3 HENMT Head: normal to inspection Ears: hearing grossly normal bilaterally Mouth: moist mucous membranes Chest Chest: normal inspection of the chest, normal palpation of entire chest wall, no crepitus and localized rib tenderness with anteroposterior compression (right side) Resp Effort & Inspection: normal respiratory effort, able to speak in complete sentences and no respiratory distress Auscultation: clear to auscultation bilaterally, no rales, no rhonchi and no wheezes Cardio Rate: regular rate Rhythm: regular rhythm Heart Sounds: S1 normal and S2 normal GI Inspection: normal to inspection and non-distended Palpation: soft, no guarding and nontender Auscultation: normal bowel sounds Back/Spine/Pelvis Back: no CVA tenderness Cervical Spine: collar present Thoracic/Lumbar Spine: thoracic and lumbar spine normal to inspection Skin General skin exam: no rashes or lesions noted Trauma: no lacerations or abrasions Neuro General: patient alert, patient awake and patient oriented x3 Cognition: normal cognition Speech: speech normal Gait: normal gait Extrem General: normal to inspection, capillary refill normal, no pedal edema, no calf tenderness and normal gait Psych Appearance: grossly normal and well kempt Mental Status: mental status grossly normal Speech and Movement: speech and movement normal Mood: congruent mood Affect: normal affect DS: Data Vitals/I&O Vitals and I&O: Vital Signs Temperature 35.9 C L 01/14/22 11:42 Temperature Source Tympanic 01/14/22 11:42 Pulse 62 01/14/22 11:42 Pulse Rhythm Regular 01/14/22 07:22 Respiratory Rate 22 01/14/22 11:42 Respiratory Effort Non-Labored 01/14/22 07:22 Respiratory Depth Normal 01/14/22 07:22 Respiratory Pattern Normal 01/14/22 07:22 Blood Pressure 103/65 01/14/22 11:42 Blood Pressure Position Supine 01/13/22 16:48 Pulse Oximetry 96 01/14/22 11:42 Oxygen Delivery Method Room Air 01/14/22 11:42 Oxygen Flow Rate 0 01/14/22 11:42 Pain Level 0 01/14/22 11:45 Comment 01/14/22 11:45 Intake & Output 01/13/22 01/14/22 01/14/22 23:59 11:59 23:59 Intake Total 400 / 400 Output Total 475 / 475 Balance -75 / -75 Weight 78.1 kg 77.2 kg Intake: Oral 400 / 400 Output: Urine 475 / 475 Other: Urine Color Yellow Dark Carmencita Urine Appearance Cloudy Urine Odor Strong Voiding Methods Urinal Data Completed and Pending Labs on day of discharge: Labs from last 24 hours 01/13/22 01/13/22 01/13/22 23:25 17:50 17:50 WBC 7.16 RBC 3.62 L Hgb 12.0 L Hct 36.3 L MCV 100 H MCH 33.1 H MCHC 33.1 RDW 12.6 Plt Count 157 MPV 10.9 Immature Gran % 0.6 Neutrophils % 78.2 Lymphocytes % 8.9 Monocytes % 8.7 Eosinophils % 3.2 Basophils % 0.4 Nucleated RBC % 0.0 Absolute Neutrophils 5.60 Absolute Lymphocytes 0.64 L Absolute Monocytes 0.62 Absolute Eosinophils 0.23 Absolute Basophils 0.03 PT 11.5 H INR 1.1 APTT 25.5 Sodium Potassium Chloride Carbon Dioxide Anion Gap BUN Creatinine Estimated GFR/1.73 m2 Glucose Calcium Total Bilirubin AST ALT Alkaline Phosphatase Total Protein Albumin COVID-19 Source Nasal/Nares SARS-CoV-2 (PCR) Negative 01/13/22 17:50 WBC RBC Hgb Hct MCV MCH MCHC RDW Plt Count MPV Immature Gran % Neutrophils % Lymphocytes % Monocytes % Eosinophils % Basophils % Nucleated RBC % Absolute Neutrophils Absolute Lymphocytes Absolute Monocytes Absolute Eosinophils Absolute Basophils PT INR APTT Sodium 140 Potassium 4.1 Chloride 102 Carbon Dioxide 34.3 H Anion Gap 3.7 BUN 27 H Creatinine 0.7 Estimated GFR/1.73 m2 >= 60.00 Glucose 111 H Calcium 8.3 L Total Bilirubin 0.3 AST 25 ALT 21 Alkaline Phosphatase 56 Total Protein 6.6 Albumin 2.9 L COVID-19 Source SARS-CoV-2 (PCR) PFSH All Active Problems (Updated 01/14/22 @ 01:16 by Simon Turner) Fibrotic lung diseases (Acute) Discharge planning issues (Acute) Pneumothorax (Acute) Hand injury (Acute) C5 cervical fracture (Acute) Fall (Acute) Onychomycosis (Acute) Palliative care patient (Acute) Dysphagia (Acute) Intertrigo (Acute) Ambulatory dysfunction (Acute) Weakness (Acute) 2021- improved with PT Weight loss (Acute) AV block, 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) Dementia (Chronic) 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) Chronic anticoagulation (Chronic) for pulmonary embolism- on embolism PVD (peripheral vascular disease) (Chronic) BPH (benign prostatic hyperplasia) (Chronic) Mitral insufficiency (Chronic) Varicose veins of lower extremity (Chronic) Peripheral venous insufficiency (Chronic) Heart murmur, systolic (Chronic 02/05/18) Generalized osteoarthrosis (Chronic) mostly when it is cold Medical History ADHD (attention deficit hyperactivity disorder), 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) 2021- no longer using adderall Alzheimer disease Carpal tunnel syndrome (02/16/11) DVT (deep venous thrombosis) Essential hypertension (04/07/13) when obese GERD (gastroesophageal reflux disease) Hypertension 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 Brother Diabetes Heart disease Brother Heart disease Social History (Updated 01/14/22 @ 00:53 by Simon Turner) Smoking/Tobacco Use Status: Former Tobacco Use tobacco type: cigarettes Quit Date: 07/09/78 Second Hand Exposure: Yes Smoking risk assessment performed?: Yes Alcohol Intake: never Drug use: Never Substance use type: does not use Caregiver/Support person: Yes Household members: spouse and children Housing: house Number of Children: 2 Do you need help understanding health information?: Always Pets and animals: No (Rabbit) Sexually active: No Do you think of yourself as: straight/heterosexual Current gender identity: male What is your relationship status?: How often do you talk on the phone with friends or family?: once per week How often do you get together with friends or relatives?: once per week How often do you attend moravian or mu-ism services?: 4 or more times per year Do you belong to any clubs or organized social groups?: no Panel score (0-1 are the most socially isolated patients): 2 What type of physical activity do you participate in: walking Duration: < 15 minutes/day Frequency: daily Mikaela/Sikhism: Bahai Seatbelt use: always Drive intox or ride w/intox driver education instructor: No Do you feel safe at home: Yes Do you feel safe in your relationship?: Yes Additional Social history: Lives with Leandra in [place], and 2 kids help care for him
--- NOTE | 2022-01-14 16:13 | PDOC.CMDIS ---
- If Service Date Differs Date of service: 01/14/22 Time of Service: 16:13 LACE Index Scoring Tool - Questions: Length of Stay (in days): 1 Acuity (Admit via E.D.?): Yes Comorbidities: Dementia E.D. Visits: 3 - Answers: Total Score: 10 Risk of Readmission: High Risk Care Management Discharge Reason for Hospitalization: C5 fracture, fall Discharge Plan: Bharathi will return home today with new orders for HH RN, PT, OT. He will be driven home via private vehicle by his . He will follow up with his PCP and discharge plan of care. Patient/Family Education Needs: Review discharge instructions regarding activity levels and medications, discussion of self care needs including ask me three. Services Needed at Discharge: Home Health Care Services (New HH RN, PT, OT)
--- NOTE | 2022-01-14 16:22 | PDOC.HHF2F_ITS ---
Home Health Certification Home Health Certification: 1. Encounter Date and Reason I certify that Bharathi Mora was seen by Africa Paz on 01/14/22 and that I had a [id number] encounter with this patient that meets the physician face to face encounter requirements. 2. Clinical Findings Supporting Skilled Need and Homebound Status I certify that home health services are medically necessary, include either intermittent half-way and/or physical/speech therapy, and that this patient is homebound in that absences from the home require considerable and taxing effort and are infrequent or of short duration, or are attributable to the need to receive medical care. [X] (a) Attached documentation from encounter provides clinical findings supporting skilled need and homebound status (including what assistance patient requires to leave the home). The encounter with the patient was in whole, or in part, for the following medical condition, which is the primary reason for home health care: C5 fracture, fall Group Home: routine nursing for evaluation and medication oversight Physical and occupational Therapy: routine evaluation and treatment Homebound: unable to safely leave to the house unattended due to gait in stability and deconditioning. 3. Certification and Authentication I certify that I composed the above information based on my clinical judgement relating to this patient's medical condition and, if applicable, clinical findings communicated to me by the NPP or inpatient physician who performed the Home Health Referral. All further orders will be obtained through Leonor Rose_(Community Based Physician - PCP)
--- NOTE | 2022-01-16 18:00 | INDS_ITS ---
Date of service: 01/16/22 PT Notes Visit Reasons: C5 fracture, fall Physical Therapy Inpatient Discharge Summary Date: 01/14/2022 Dates of service: 01/14/2022 only This is a clinical summary of care provided for the duration of dates listed above. No charge was made in the completion of this documentation. Referring Doctor:? Simon Turner MD PT Orders: PT CONSULT: Fall safety assessment.? Safety consult for D/C Precautions: Fall. Standard. Activity as tolerated. [place] collar on at all times,? may be removed for hygiene with correct stabilization of head and neck by a second person/caregiver. Patient Profile/Admitting Diagnosis:? Patient is 66-year-old palliative care male patient who presented to the ED on 01/14/2022 with pain in head, neck, and hip due to a mechanical fall.? Patient is diagnosed with a non-displaced C5 fracture and was given a cervical collar by admitting MD,? ambulatory dysfunction, and fibrotic lung disease. PMHX: All Active Problems?(Updated 01/14/22 @ 01:16 by Simon Turner) Fibrotic lung diseases (Acute) Discharge planning issues (Acute) Pneumothorax (Acute) Hand injury (Acute) C5 cervical fracture (Acute) Fall (Acute) Onychomycosis (Acute) Palliative care patient (Acute) Dysphagia (Acute) Intertrigo (Acute) Ambulatory dysfunction (Acute) Weakness (Acute) 2021- improved with PT Weight loss (Acute) AV block, 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) Dementia (Chronic) 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) Chronic anticoagulation (Chronic) for pulmonary embolism- on embolism PVD (peripheral vascular disease) (Chronic) BPH (benign prostatic hyperplasia) (Chronic) Mitral insufficiency (Chronic) Varicose veins of lower extremity (Chronic) Peripheral venous insufficiency (Chronic) Heart murmur, systolic (Chronic 02/05/18) Generalized osteoarthrosis (Chronic) mostly when it is cold Medical History? 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 IVC filter (~2008) 2009Status post appendectomy age 10 Social History/Home Situation: Lives with and 2 daughters in a private home with 2 steps to enter.? Independent with indoor and outdoor ambulation with single-point cane.? has a lady who also comes in once a week to provided needed assistance. Equipment Owned/DME: SPC, FWW Subjective: NT. See most recent PASSENGER CAR INSPECTOR notes. Objective: General Observation: NT. See most recent PASSENGER CAR INSPECTOR notes. Mental Status: NT. See most recent PASSENGER CAR INSPECTOR notes. Pain: NT. See most recent PASSENGER CAR INSPECTOR notes. Vital Signs: NT. See most recent PASSENGER CAR INSPECTOR notes. ROM: Right Upper Extremity: ? Shoulder Flexion lacks 50% of available range of motion.? Shoulder abduction lacks 50% of available range of motion. Elbow flexion WFL. Wrist flexion WFL. Functional opening and closing of hand WFL. Left Upper Extremity:? Shoulder Flexion lacks 50% of available range of motion.? Shoulder abduction lacks 50% of available range of motion. Elbow flexion WFL. Wrist flexion WFL. Functional opening and closing of hand WFL. Right Lower Extremity: Hip flexion lacks 50% of of available range of motion. Hip abduction lacks 50% of of available range of motion. Knee flexion 20 degrees to 90 degrees.? Knee extension -20 degrees.? Ankle dorsiflexion to neutral only. Ankle plantarflexion WFL. Left Lower Extremity: Hip flexion lacks 50% of of available range of motion. Hip abduction lacks 50% of of available range of motion. Knee flexion 20 degrees to 90 degrees.? Knee extension -20 degrees.? Ankle dorsiflexion to neutral only. Ankle plantarflexion WFL. Strength: Right Upper Extremity: Shoulder flexors 3-/5. Shoulder abductors 3-/5. Elbow flexors 3-/5. Elbow extensors 5/5. Maintenance Apprentice weak but functional. Left Upper Extremity: Shoulder flexors 3-/5. Shoulder abductors 3-/5. Elbow flexors 3-/5. Elbow extensors 5/5. Maintenance Apprentice weak but functional. Right Lower Extremity: Hip flexors 3-/5. Hip abductors 3-/5. Knee flexors 3-/5. Knee extensors 3-/5. Ankle dorsiflexors 3-/5. Ankle plantarflexors 4-/5. Left Lower Extremity: Hip flexors 3-/5. Hip abductors 3-/5. Knee flexors 3-/5. Knee extensors 3-/5. Ankle dorsiflexors 3-/5. Ankle plantarflexors 4-/5. Bed Mobility/Transfers: Sit to supine minimal assist, moderate cues provided for correct technique Sit to stand contact guard assist,? moderate cues provided for correct technique Stand to sit contact guard assist, moderate cues provided for correct technique Bed to reclining chair minimal assist, moderate cues provided for correct technique Gait: Patient tolerated level surface ambulation of 200 feet using FWW with wheelchair follow by Leandra.? Trunk anteroflexed.? Elizabeth decreased.? Denies headache, dizziness, and chest pain throughout session. Balance: Static Sitting: Good Dynamic Sitting: Fair Static Standing: Fair Dynamic Standing: Poor Assessment: Patient presents with clinical signs and symptoms consistent with current/admitting diagnoses that have resulted to mobility limitations, gait instability, generalized weakness, and overall ADL decline as demonstrated by the following impairment level findings: 1.? Decreased strength to B UE/LEmajor muscle groups 2.? Impaired sitting/standing balance 3.? Impaired activity tolerance 4.? Limitation of joint range of motion in major BUE and LE joints Impairments are contributing to the following functional limitations: 1.? Decline in bed mobility skills 2.? Decline in transfer skills 3.? Difficulty with ambulation without assistive device and physical assistance 4.? Increased completion time for mobility ADL performance 5.? Increased risk for falls 6.? Difficulty with managing steps alone safely Goals: Goals X1 week 1. Supine-Sit independent NOT MET 2. Sit-Supine independent NOT MET 3. Sit-Stand independent NOT MET 4. Stand-Sit independent with FWW NOT MET 5. Bed-Chair independent with FWW NOT MET 6. Chair-Bed independent with FWW NOT MET 7. Supervision with gait on level surface with use of FWW for at least 100 feet without report of pain nor dyspnea NOT MET 8. Supervision stair negotiation while holding onto B rails for at least 5 steps without report of pain nor dyspnea NOT MET 9. Good static and dynamic standing balance/tolerance NOT MET DISCHARGE RECOMMENDATIONS: [] ? Home with no services [] [X] ? Home with services.? Home when medically cleared by hospitalist.? Patient will benefit from home health PT services in order to progress mobility level using least restrictive assistive ambulatory device, assess home safety, identify additional equipment needs, and establish a functional maintenance program that will increase ability of patient to remain at home. [] ? Home with outpatient PT [] [] ? SNF for continued rehabilitation [] [] ? [facility] [] [] ? SNF versus LTC based on ability to participate and progress [] TREATMENT CODE/TIME: [place] Thank you for the opportunity to participate in the care of this patient. Sharonda Andrade PT, DPT, CLT [facility] [place], [place]
== END 2022-01-14 16:03 | disposition home health service (06) | DRG 552 ==
LOC: ER 22:55 → MS 23:18
PROVIDERS: Admitting Provider Family Medicine; Emergency Provider Emergency Medicine; PCP Nurse Practitioner; Visit Provider Family Medicine
DX: S12.400A Unspecified displaced fracture of fifth cervical vertebra, initial encounter for closed fracture (principal); G30.9 Alzheimer's disease, unspecified; F02.80 Dementia in other diseases classified elsewhere, unspecified severity, without behavioral disturbance, psychotic disturbance, mood disturbance, and anxiety; J84.10 Pulmonary fibrosis, unspecified; W17.89XA Other fall from one level to another, initial encounter; Z79.01 Long term (current) use of anticoagulants; I73.9 Peripheral vascular disease, unspecified; Z86.711 Personal history of pulmonary embolism; R29.6 Repeated falls; Z91.81 History of falling; Z66 Do not resuscitate; I44.0 Atrioventricular block, first degree; L30.4 Erythema intertrigo; N40.0 Benign prostatic hyperplasia without lower urinary tract symptoms; I34.0 Nonrheumatic mitral (valve) insufficiency; M15.9 Polyosteoarthritis, unspecified; R01.1 Cardiac murmur, unspecified; I10 Essential (primary) hypertension; K21.9 Gastro-esophageal reflux disease without esophagitis; Z87.891 Personal history of nicotine dependence; I83.12 Varicose veins of left lower extremity with inflammation
CPT/HCPCS: 73552; 80053; 87635; 96374; 96375; 96376; 97110; 97162; 99285; 70450; 71045; 72040; 72125; 72128; 72131; 72170; 73590; 85025; 85610; 85730; 99217; J1885; J2270; J2405

== ENCOUNTER 2022-01-24 10:06 | Emergency (ER) | payer MEDICARE, MEDICAID, SELFPAY ==
--- NOTE | 2022-01-24 10:07 | ED.GENADUL_ITS ---
Discharge Plan Disposition Patient Disposition: HOME Condition: Stable Discharge Details Clinical Impression: C5 cervical fracture Primary Care Provider: Leonor Rose ED Provider: Jonathan Bangura Home Meds and New Rx's Prescriptions: Continued cholecalciferol (vitamin D3) 50 mcg (2,000 unit) capsule 50 mcg PO DAILY nystatin 100,000 unit/gram powder 1 applic topical BID Qty: 60 4RF cyanocobalamin (vitamin B-12) [Vitamin B-12] 1,000 mcg tablet extended release 1,000 mcg PO DAILY aspirin [Adult Aspirin Regimen] 81 mg tablet,delayed release (DR/EC) 81 mg PO DAILY glucosamine sulfate 1,000 mg capsule 2,000 mg PO BID Rx Instructions: administer with a meal finasteride [Proscar] 5 mg tablet 5 mg PO DAILY Qty: 90 4RF apixaban 5 mg tablet 5 mg PO BID Qty: 180 4RF prednisolone acetate 1 % drops,suspension 1 drp ophthalmic (eye) DAILY valacyclovir 500 mg tablet 500 mg PO DAILY Qty: 90 4RF sertraline 50 mg tablet 50 mg PO DAILY Qty: 90 3RF acetaminophen 325 mg Tablet 650 mg PO QID Qty: 1 0RF Discharge Instructions Additional Instructions: At this time using shared decision making it was decided not to pursue addit ional work-up here in the ER including laboratory values, imaging, etc. Instead the c-collar was adjusted to be more formfitting and he will follow-up with [facility] neurosurgery next week as scheduled. We also discussed sitting on a doughnut for more comfort regarding his coccyx injury. It would appear as though lying more flat especially wearing the c-collar has been problematic, I do recommend setting him up higher which seems to resolve the symptoms completely. Please watch for new or worsening symptoms and return to the ER for any concerns Discharge Data Discharge Date/Time-TO BE ENTERED AT DEPARTURE: 01/24/22 11:48 Medical Decision Making 66-year-old gentleman presenting with his requesting education regarding his [place] collar. He apparently took his [place] collar off briefly the day he was released from the hospital but has been wearing it ever since, there has been no additional fall or evidence of trauma, she is concerned is not fitting him appropriately. We did discuss reimaging his neck but given he has been wearing his collar, there are no focal weaknesses or deficits, and there has been no trauma, she declines additional imaging which I believe to be perfectly reasonable. There does appear to be mild ecchymosis to his coccyx from his recent fall which seems to be tender, we discussed using a donut to sit on to hopefully decrease the pressure while sitting. Patient reports a sensation of difficulty breathing when lying below a 15 degree angle however this resolved completely with sitting up about 15 degrees. Clinically he appears well, nontoxic, lungs clear to auscultation, O2 sat is 98% on room air, clinically no signs of CHF. We discussed that the sensation may be secondary to lying flat with the caller that he could certainly obtain IV access, obtain routine laboratory values and a chest x-ray for further evaluation. She feels as though this is likely secondary to position and declines additional work-up. Again I feel this to be reasonable. The [place] collar was tightened and the patient reports it feels more comfortable and the patient's feels as though it is more formfitting and she is comfortable with this. Does have follow-up with neurosurgery at [facility] in 1 week. Strict discharge and return precautions were provided. Patient understands, is agreeable to this plan, and has no additional questions or concerns upon discharge. This documentation was generated using [employer] dictation system, please disregard any oddities of phrase or misspellings. Medical Records Medical records reviewed: Yes I reviewed the patient's medical records. HPI General Mode of arrival: wheelchair . Date/Time Provider Initiated Documentation: 01/24/22 10:07 . Limitations to Documentation: other (Dementia) . Information obtained by: patient and family . HPI Narrative: This is a 66-year-old gentleman, DNR, DNI, palliative care patient who had a fall on 01-13-2022 resulting in a C5 fracture nondisplaced inferior endplate, he was hospitalized at that time, scheduled to see neurosurgery at [facility] next week, and saw neurology locally for routine dementia follow-up, had concern regarding his c-collar and subsequently sent to the ER. He overall has not been tolerating the c-collar very well and it now appears more loose than when initially placed on. He apparently had taken it off briefly the day of his hospital discharge but his put it back on immediately and he has been wearing it ever since. There has been no additional injury or fall. Patient also seems to have a sensation of difficulty breathing when he lies more flat, this has been going on ever since wearing the [place] collar. He denies cough, fever, chest pain, pain or swelling in his legs. As soon as he sits up the sensation goes away. Lastly he has some bruising to his coccyx from the fall and he is having more difficulty sitting on that area. reports that he typically ambulates with a cane but has been using a walker effectively Related Data Home Medications Medication Instructions Recorded Confirmed cyanocobalamin (vitamin B-12) 1,000 mcg PO DAILY 07/30/18 01/24/22 1,000 mcg tablet,extended release (Vitamin B-12 ER) aspirin 81 mg tablet,delayed 81 mg PO DAILY 06/04/19 01/24/22 release (Adult Aspirin Regimen) glucosamine sulfate 1,000 mg 2,000 mg PO BID 10/28/20 01/24/22 capsule cholecalciferol (vitamin D3) 50 50 mcg PO DAILY 12/01/20 01/24/22 mcg (2,000 unit) capsule apixaban 5 mg tablet 5 mg PO BID #180 tabs 05/13/21 01/24/22 finasteride 5 mg tablet (Proscar) 5 mg PO DAILY #90 tab-caps 05/13/21 01/24/22 prednisolone acetate 1 % eye 1 drp ophthalmic (eye) DAILY 07/26/21 01/24/22 drops,suspension valacyclovir 500 mg tablet 500 mg PO DAILY #90 tabs 10/03/21 01/24/22 nystatin 100,000 unit/gram topical 1 applic topical BID #60 grams 11/22/21 01/24/22 powder sertraline 50 mg tablet 50 mg PO DAILY #90 tabs 12/08/21 01/24/22 acetaminophen 325 mg tablet 650 mg PO QID #1 tab 01/14/22 01/24/22 Previous Rx's Medication Instructions Recorded apixaban 5 mg tablet 5 mg PO BID #180 tabs 05/13/21 finasteride 5 mg tablet (Proscar) 5 mg PO DAILY #90 tab-caps 05/13/21 valacyclovir 500 mg tablet 500 mg PO DAILY #90 tabs 10/03/21 nystatin 100,000 unit/gram topical 1 applic topical BID #60 grams 11/22/21 powder sertraline 50 mg tablet 50 mg PO DAILY #90 tabs 12/08/21 acetaminophen 325 mg tablet 650 mg PO QID #1 tab 01/14/22 Allergies Allergy/AdvReac Type Severity Reaction Status Date / Time gluten Allergy Intermediate Verified 01/24/22 10:15 peanut AdvReac Mild DIARRHEA Verified 01/24/22 10:15 General BAILEY: 3 Review of Systems Constitutional Constitutional: Denies fever(s), Denies headache(s) and Denies weakness ENT Ears, Nose, Mouth, and Throat: Denies headache(s) and Reports neck pain Cardiovascular Cardiovascular: Denies chest pain and Reports dyspnea Respiratory Respiratory: Denies cough and Reports dyspnea Gastrointestinal Gastrointestinal: Denies abdominal pain, Denies nausea and Denies vomiting Musculoskeletal Musculoskeletal: Denies back pain and Reports neck pain Integumentary/Breasts Skin/Breast: Denies rash Neurologic Neurologic: Denies headache(s) and Denies weakness PFSH All Active Problems Fibrotic lung diseases (Acute) Discharge planning issues (Acute) Pneumothorax (Acute) Hand injury (Acute) C5 cervical fracture (Acute) Fall (Acute) Onychomycosis (Acute) Palliative care patient (Acute) Dysphagia (Acute) Intertrigo (Acute) Ambulatory dysfunction (Acute) Weakness (Acute) 2021- improved with PT Weight loss (Acute) AV block, 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) Dementia (Chronic) 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) Chronic anticoagulation (Chronic) for pulmonary embolism- on embolism PVD (peripheral vascular disease) (Chronic) BPH (benign prostatic hyperplasia) (Chronic) Mitral insufficiency (Chronic) Varicose veins of lower extremity (Chronic) Peripheral venous insufficiency (Chronic) Heart murmur, systolic (Chronic 02/05/18) Generalized osteoarthrosis (Chronic) mostly when it is cold Medical History ADHD (attention deficit hyperactivity disorder), 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) 2021- no longer using adderall Alzheimer disease Carpal tunnel syndrome (02/16/11) DVT (deep venous thrombosis) Essential hypertension (04/07/13) when obese GERD (gastroesophageal reflux disease) Hypertension 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 Brother Diabetes Heart disease Brother Heart disease Social History Smoking/Tobacco Use Status: Former Tobacco Use tobacco type: cigarettes Quit Date: 07/09/78 Second Hand Exposure: Yes Smoking risk assessment performed?: Yes Alcohol Intake: never Drug use: Never Substance use type: does not use Caregiver/Support person: Yes Household members: spouse and children Housing: house Number of Children: 2 Do you need help understanding health information?: Always Pets and animals: No (Rabbit) Sexually active: No Do you think of yourself as: straight/heterosexual Current gender identity: male What is your relationship status?: How often do you talk on the phone with friends or family?: once per week How often do you get together with friends or relatives?: once per week How often do you attend adventist or caodaism services?: 4 or more times per year Do you belong to any clubs or organized social groups?: no Panel score (0-1 are the most socially isolated patients): 2 What type of physical activity do you participate in: walking Duration: < 15 minutes/day Frequency: daily Mikaela/Confucianism: Hoahaoism Seatbelt use: always Drive intox or ride w/intox regional driver: No Do you feel safe at home: Yes Do you feel safe in your relationship?: Yes Additional Social history: Lives with Leandra in [place], and 2 kids help care for him Exam Const General: cooperative, healthy appearing, comfortable and no acute distress Orientation: alert, awake, oriented to person and oriented to place [facility] Head: normal to inspection, normocephalic and atraumatic Face and sinus: normal facial exam Mouth: moist mucous membranes Eyes General: appearance normal, both eyes and all related structures Conjunctivae: conjunctivae normal Neck Neck: normal visual inspection, trachea midline, supple, tender (Diffuse, mild, posterior) and other (Wearing an [place] collar) Resp Effort & Inspection: normal respiratory effort and able to speak in complete sentences Auscultation: clear to auscultation bilaterally Cardio Rate: regular rate Rhythm: regular rhythm GI Palpation: soft and nontender Back/Spine/Pelvis Back: no CVA tenderness and back tenderness Other: There are multiple areas of healing ecchymosis across the thoracic and lumbar spine including the coccyx with mild discomfort. Skin General skin exam: no rashes or lesions noted Neuro General: patient alert, patient awake, moves all extremities and no focal motor deficits Speech: speech normal Gait: gait assisted Method: walker (Slow but steady) Sensory Exam: no sensory deficits noted Extrem General: normal to inspection, full ROM and capillary refill normal Psych Appearance: grossly normal Mental Status: mental status grossly normal
[2022-01-24 10:10] VITALS: BP 110/72; PULSE 76; RESP 18; TEMP 37.4; O2SAT 98
[2022-01-24 11:55] VITALS: BP 142/80; PULSE 75; RESP 18; TEMP 36.6; O2SAT 99
== END 2022-01-24 11:48 | disposition home or self-care (01) ==
PROVIDERS: Emergency Provider Physician Assistant; PCP Nurse Practitioner
DX: S12.490D Other displaced fracture of fifth cervical vertebra, subsequent encounter for fracture with routine healing (principal); X58.XXXD Exposure to other specified factors, subsequent encounter; R06.02 Shortness of breath; S39.82XD Other specified injuries of lower back, subsequent encounter; G30.8 Other Alzheimer's disease; F02.80 Dementia in other diseases classified elsewhere, unspecified severity, without behavioral disturbance, psychotic disturbance, mood disturbance, and anxiety
CPT/HCPCS: 99214; 99215; 99282

== ENCOUNTER 2022-02-11 17:26 | Outpatient (REF) | payer MEDICARE, MEDICAID, SELFPAY ==
[2022-02-14 16:07] LABS: COVID-19 RT-PCR Result Not Detected ((See Note))
== END 2022-02-11 17:27 | disposition home or self-care (01) ==
LOC: LBN 17:26
PROVIDERS: PCP Nurse Practitioner; Visit Provider Nurse Practitioner
DX: Z20.822 Contact with and (suspected) exposure to COVID-19 (principal)
CPT/HCPCS: U0003

== ENCOUNTER 2022-02-15 08:55 | Outpatient (REF) | payer MEDICARE, MEDICAID, SELFPAY ==
[2022-02-15 09:20] LABS: Abs Immature Grans 0.01 10^3/uL (0.0-0.06); Absolute Basophil Count 0.05 10^3/uL (0.0-0.2); Absolute Eosinophil Count 0.28 10^3/uL (0.0-0.7); Absolute Lymphocyte Count 0.93 10^3/uL (1.2-3.4); Absolute Monocyte Count 0.45 10^3/uL (0.1-0.8); Absolute Neutrophil Count 1.85 10^3/uL (1.2-6.7); Basophils % 1.4; Eosinophils % 7.8; HCT 38.9 % (40.0-50.0); HGB 12.7 g/dL (13.5-17.5); Immature Grans % 0.3; Lymphocytes % 26.1; MCH 32.5 pg (27.0-33.0); MCHC 32.6 % (32.0-36.0); MCV 100 fL (80-95); MPV 11.4 fL (8.0-11.0); Monocytes % 12.6; Neutrophils % 51.8; Platelet Count 143 10^3/uL (130-400); RBC 3.91 10^6/uL (4.36-5.78); RDW 12.9 % (11.8-14.1); RDW-SD 47.1 fL; WBC 3.57 10^3/uL (4.4-10.8)
[2022-02-15 09:24] LABS: Iron 68 ug/dL (65-175); Total Iron Binding Capacity 237 ug/dL (250-450); Transferrin Sat 29 % (20-55)
[2022-02-15 09:38] LABS: Hemoglobin A1C 5.7 % (<5.7)
[2022-02-15 09:55] LABS: ALT 15 U/L (16-63); AST 16 U/L (15-37); Albumin 3.1 g/dL (3.4-5.0); Alkaline Phosphatase 87 U/L (46-116); BUN 15 mg/dL (7-18); Bilirubin, Total 0.7 mg/dL (0.2-1.0); CREATININE 0.7 mg/dL (0.70-1.30); Calcium 8.7 mg/dL (8.5-10.1); Chloride 102 mmol/L (98-107); Ferritin 486 ng/mL (26-388); Folate 4.1 ng/mL (8.6-20.0); Glucose 88 mg/dL (74-106); Potassium 4.2 mmol/L (3.5-5.1); Sodium 142 mmol/L (136-145); TSH (W/Ref FT4) 6.89 uIU/mL (0.36-3.74); Total Protein 6.5 g/dL (6.4-8.2); Vitamin B12 900 pg/mL (193-986)
[2022-02-15 10:21] LABS: NT-proBNP 218 pg/mL (<300)
[2022-02-16 04:50] LABS: Vitamin D 25 Total 50.4 ng/mL (30-100)
== END 2022-02-15 08:56 | disposition home or self-care (01) ==
LOC: LBN 08:55
PROVIDERS: PCP Nurse Practitioner; Visit Provider Nurse Practitioner Gerontology
DX: E11.9 Type 2 diabetes mellitus without complications (principal); R68.89 Other general symptoms and signs; K21.9 Gastro-esophageal reflux disease without esophagitis; D68.9 Coagulation defect, unspecified; G30.9 Alzheimer's disease, unspecified; Z13.0 Encounter for screening for diseases of the blood and blood-forming organs and certain disorders involving the immune mechanism
CPT/HCPCS: 80053; 82306; 82607; 82728; 82746; 83036; 83540; 83550; 83735; 83880; 84439; 84443; 85025

== ENCOUNTER 2022-02-27 06:00 | Emergency (ER) | payer MEDICARE, MEDICAID, SELFPAY ==
[2022-02-27 06:04] VITALS: BP 145/76; PULSE 72; RESP 18; TEMP 37; O2SAT 95
--- NOTE | 2022-02-27 06:14 | W.ED.GENAD ---
Discharge Plan Disposition Patient Disposition: HOME Condition: Good Discharge Details Clinical Impression: Encounter for medical assessment Primary Care Provider: Leonor Rose ED Provider: Theron Amaya Home Meds and New Rx's Prescriptions: No Action cholecalciferol (vitamin D3) 50 mcg (2,000 unit) capsule 100 mcg PO DAILY nystatin 100,000 unit/gram powder 1 applic topical BID Qty: 60 4RF acetaminophen 325 mg tablet 650 mg PO QID PRN (Reason: fever or pain) aspirin [Adult Aspirin Regimen] 81 mg tablet,delayed release (DR/EC) 81 mg PO DAILY glucosamine sulfate 1,000 mg capsule 2,000 mg PO BID Rx Instructions: administer with a meal finasteride [Proscar] 5 mg tablet 5 mg PO DAILY Qty: 90 4RF apixaban 5 mg tablet 5 mg PO BID Qty: 180 4RF prednisolone acetate 1 % drops,suspension 1 drp ophthalmic (eye) DAILY valacyclovir 500 mg tablet 500 mg PO DAILY Qty: 90 4RF sertraline 50 mg tablet 50 mg PO DAILY Qty: 90 3RF B-complex with vitamin C Tablet 1 tab PO DAILY Discharge Instructions Additional Instructions: Thankfully at this time the patient is calm, cooperative, and is able to clearly articulate in front of myself, the nursing staff and the EMS crew the reasons for wearing the c-collar, and has also verbally discussed a safety plan stating that he is willing and able and will maintain the c-collar at the facility because if he does not he would be a danger to himself, he could potentially be paralyzed, and if he is paralyzed he would never be able to go home where his could take care of him. As the patient does have a very clear do not transport order as noted in the palliative care note on 02/17/2022 it would be the goal to maintain his calmness at the [facility]. If he is not able to do this, please do not hesitate to reach out to us or his palliative care team and we can help work through a solution that would be in the patient's best interest. Referrals: Leonor Rose, [employer] [Primary Care Provider] - Medical Decision Making This is a pleasant 66-year-old male with Alzheimer's dementia, history of pulmonary embolism with IVC filter and chronic anticoagulation, peripheral vascular disease, BPH, C5 cervical fracture that occurred about 2 months ago, who is now chronically in a [place] c-collar until 03/16, at which time it is scheduled to be removed by [facility]. In the meantime he is at the [facility] because his cannot care for him. He is DNR/DNI, do not transport, no feeding tube, comfort care. This evening per the [facility] nursing staff the patient was aggressive starting at midnight, and kept taking his cervical collar on and off. He would not follow direction per nursing staff. They did give him some sedative medications which helped slightly, but the symptoms of interest continued. Eventually Isabel Dean was consulted and is the medical research tech, and it was recommended that he come to the ER for further discussion and evaluation of the cervical collar situation. EMS was contacted, and per EMS the patient became very agreeable, he excepted to have a cervical collar placed, accepted to be transported, and was brought to the ER in no duress. Currently the patient has no complaints. He is calm cool and cooperative. He denies any concerns or issues at this time. On assessment the patient is cool calm and cooperative. He is able to articulate well. He has no midline cervical spine tenderness. No neurologic deficits. He is wearing the c-collar comfortably, and sitting in the bed no discomfort. He follows all commands. The patient is very willingly taking the c-collar at this time and shows no signs of aggression. In the presence of both the EMS crew, and nursing staff, I articulated to the patient the need to keep the c-collar on, to follow with the direction of the nursing staff, and cannot be confrontational. Patient was able to articulate this back to me and agreed with the safety plan. We did contact nursing staff at the [facility] and spoke with Елена. We informed her of how the patient was acting now, as well as his agreement with the safety plan. She understands. I also did recommend that if this does happen again it would be our goal to respect the patient's wishes as much as possible including his do not transport order. If it became a notable issue at the facility I did recommend thatIsabel Dean or their nursing staff contact us and we can help work out a solution if possible to respect the wishes that he, and his palliative care team had put in place. I have extensively reviewed the treatment plan and discharge instructions with the patient. I have addressed all patient concerns at this time. The patient was made aware of what symptoms to monitor for that would warrant a return to the emergency department. Discussed the plan with the patient, they demonstrate verbal understanding and agreement with our assessment and plan at this time. The documentation in this chart was dictated using [employer] dictation software. Please excuse any dictation errors. HPI General Date/Time Provider Initiated Documentation: 02/27/22 06:24. HPI Narrative: This is a pleasant 66-year-old male with Alzheimer's dementia, history of pulmonary embolism with IVC filter and chronic anticoagulation, peripheral vascular disease, BPH, C5 cervical fracture that occurred about 2 months ago, who is now chronically in a [place] c-collar until 03/16, at which time it is scheduled to be removed by [facility]. In the meantime he is at the [facility] because his cannot care for him. He is DNR/DNI, do not transport, no feeding tube, comfort care. This evening per the [facility] nursing staff the patient was aggressive starting at midnight, and kept taking his cervical collar on and off. He would not follow direction per nursing staff. They did give him some sedative medications which helped slightly, but the symptoms of interest continued. Eventually Isabel Dean was consulted and is the medical research tech, and it was recommended that he come to the ER for further discussion and evaluation of the cervical collar situation. EMS was contacted, and per EMS the patient became very agreeable, he excepted to have a cervical collar placed, accepted to be transported, and was brought to the ER in no duress. Currently the patient has no complaints. He is calm cool and cooperative. He denies any concerns or issues at this time. Related Data Home Medications Medication Instructions Recorded Confirmed aspirin 81 mg tablet,delayed 81 mg PO DAILY 06/04/19 02/18/22 release (Adult Aspirin Regimen) glucosamine sulfate 1,000 mg 2,000 mg PO BID 10/28/20 02/18/22 capsule apixaban 5 mg tablet 5 mg PO BID #180 tabs 05/13/21 02/18/22 finasteride 5 mg tablet (Proscar) 5 mg PO DAILY #90 tab-caps 05/13/21 02/18/22 prednisolone acetate 1 % eye 1 drp ophthalmic (eye) DAILY 07/26/21 02/18/22 drops,suspension valacyclovir 500 mg tablet 500 mg PO DAILY #90 tabs 10/03/21 02/18/22 nystatin 100,000 unit/gram topical 1 applic topical BID #60 grams 11/22/21 02/18/22 powder sertraline 50 mg tablet 50 mg PO DAILY #90 tabs 12/08/21 02/18/22 acetaminophen 325 mg tablet 650 mg PO QID PRN fever or pain 02/10/22 02/18/22 cholecalciferol (vitamin D3) 50 100 mcg PO DAILY 02/10/22 02/18/22 mcg (2,000 unit) capsule B-complex with vitamin C 1 tab PO DAILY 02/16/22 02/18/22 Previous Rx's Medication Instructions Recorded apixaban 5 mg tablet 5 mg PO BID #180 tabs 05/13/21 finasteride 5 mg tablet (Proscar) 5 mg PO DAILY #90 tab-caps 05/13/21 valacyclovir 500 mg tablet 500 mg PO DAILY #90 tabs 10/03/21 nystatin 100,000 unit/gram topical 1 applic topical BID #60 grams 11/22/21 powder sertraline 50 mg tablet 50 mg PO DAILY #90 tabs 12/08/21 Allergies Allergy/AdvReac Type Severity Reaction Status Date / Time gluten Allergy Intermediate Verified 02/10/22 14:46 peanut AdvReac Mild DIARRHEA Verified 02/10/22 14:46 General Stated Complaint: Recheck BAILEY: 5 Review of Systems All systems reviewed & are unremarkable except as noted in HPI and below PFSH All Active Problems Encounter for medical assessment (Acute) Fibrotic lung diseases (Acute) Discharge planning issues (Acute) C5 cervical fracture (Acute) Fall (Acute) Onychomycosis (Acute) Palliative care patient (Acute) Dysphagia (Acute) Intertrigo (Acute) Ambulatory dysfunction (Acute) Weakness (Acute) 2021- improved with PT Weight loss (Acute) AV block, 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) Dementia (Chronic) 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) Chronic anticoagulation (Chronic) for pulmonary embolism- on embolism PVD (peripheral vascular disease) (Chronic) BPH (benign prostatic hyperplasia) (Chronic) Mitral insufficiency (Chronic) Varicose veins of lower extremity (Chronic) Peripheral venous insufficiency (Chronic) Heart murmur, systolic (Chronic 02/05/18) Generalized osteoarthrosis (Chronic) mostly when it is cold Medical History ADHD (attention deficit hyperactivity disorder), 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) 2021- no longer using adderall Alzheimer disease Carpal tunnel syndrome (02/16/11) DVT (deep venous thrombosis) Essential hypertension (04/07/13) when obese GERD (gastroesophageal reflux disease) Gluten intolerance has had no gluten since 2016 Hypertension 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 Brother Diabetes Heart disease Brother Heart disease Social History Smoking/Tobacco Use Status: Former Tobacco Use tobacco type: cigarettes Quit Date: 07/09/78 Second Hand Exposure: Yes Smoking risk assessment performed?: Yes Alcohol Intake: never Drug use: Never Substance use type: does not use Caregiver/Support person: Yes Household members: spouse and children Housing: house Number of Children: 2 Do you need help understanding health information?: Always Pets and animals: No (Rabbit) Sexually active: No Do you think of yourself as: straight/heterosexual Current gender identity: male What is your relationship status?: How often do you talk on the phone with friends or family?: once per week How often do you get together with friends or relatives?: once per week How often do you attend pentecostal or buddhism services?: 4 or more times per year Do you belong to any clubs or organized social groups?: no Panel score (0-1 are the most socially isolated patients): 2 What type of physical activity do you participate in: walking Duration: < 15 minutes/day Frequency: daily Mikaela/Mormonism: Rastafari Seatbelt use: always Drive intox or ride w/intox 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 3.ENT: Atraumatic external nose and ears. Moist MM. Neck: Symmetric, trachea midline, No thyromegaly. 4.CVS: +S1/S2, No murmurs or gallops. Peripheral pulses 2+ and equal in all extremities. Brisk capillary refill in all extremities. 5.RESP: Unlabored respiratory effort. Clear to auscultation bilaterally. No wheezes rales or rhonchi 6.GI: Soft, Nontender/Nondistended, No hepatosplenomegaly. No guarding or rebound. 7.MSK: Normocephalic/Atraumatic, Extremities w/o deformity or ttp No cyanosis or clubbing, Normal movement of all extremities 8.Skin: Warm, Dry. No rashes or lesions. 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 Sensation grossly intact, no focal neurologic deficits. No midline cervical thoracic or lumbar spine tenderness. Normal strength of the upper extremities. 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 Good sensation throughout 10.Psych: (AAO) x3. Appropriate mood and affect Course Vital Signs Vital signs: Vital Signs Temperature 37.0 C 02/27/22 06:04 Pulse 72 02/27/22 06:04 Respiratory Rate 18 02/27/22 06:04 Blood Pressure 145/76 H 02/27/22 06:04 Pulse Oximetry 95 02/27/22 06:04 Temperature 37.0 C 02/27/22 06:04 Temperature Source Oral 02/27/22 06:04 Pulse 72 02/27/22 06:04 Respiratory Rate 18 02/27/22 06:04 Respiratory Effort Non-Labored 02/27/22 06:07 Blood Pressure 145/76 H 02/27/22 06:04 Pulse Oximetry 95 02/27/22 06:04 Pain Level 0 02/27/22 06:04
== END 2022-02-27 06:25 | disposition home or self-care (01) ==
LOC: ER 06:51
PROVIDERS: Emergency Provider Student in an Organized Health Care Education/Training Program; PCP Nurse Practitioner
DX: Z00.00 Encounter for general adult medical examination without abnormal findings (principal); G30.9 Alzheimer's disease, unspecified; F02.80 Dementia in other diseases classified elsewhere, unspecified severity, without behavioral disturbance, psychotic disturbance, mood disturbance, and anxiety; I10 Essential (primary) hypertension; F90.0 Attention-deficit hyperactivity disorder, predominantly inattentive type; Z79.82 Long term (current) use of aspirin; Z86.718 Personal history of other venous thrombosis and embolism; Z87.891 Personal history of nicotine dependence
CPT/HCPCS: 99283; 99281

== ENCOUNTER 2022-02-27 18:43 | Outpatient (REF) | payer MEDICARE, MEDICAID, SELFPAY ==
[2022-02-27 17:47] LABS: Abs Immature Grans 0.01 10^3/uL (0.0-0.06); Absolute Basophil Count 0.04 10^3/uL (0.0-0.2); Absolute Eosinophil Count 0.24 10^3/uL (0.0-0.7); Absolute Lymphocyte Count 0.99 10^3/uL (1.2-3.4); Absolute Monocyte Count 0.58 10^3/uL (0.1-0.8); Absolute Neutrophil Count 3.45 10^3/uL (1.2-6.7); Basophils % 0.8; Eosinophils % 4.5; HCT 36.9 % (40.0-50.0); HGB 11.9 g/dL (13.5-17.5); Immature Grans % 0.2; Lymphocytes % 18.6; MCH 32.4 pg (27.0-33.0); MCHC 32.2 % (32.0-36.0); MCV 101 fL (80-95); MPV 11.7 fL (8.0-11.0); Monocytes % 10.9; Platelet Count 164 10^3/uL (130-400); RBC 3.67 10^6/uL (4.36-5.78); RDW 12.9 % (11.8-14.1); RDW-SD 47.8 fL; WBC 5.31 10^3/uL (4.4-10.8)
[2022-02-27 17:59] LABS: ALT 15 U/L (16-63); AST 17 U/L (15-37); Alkaline Phosphatase 73 U/L (46-116); Anion Gap 4.1 mmol/L (3-11); BUN 19 mg/dL (7-18); Bilirubin Negative (Negative); Bilirubin, Total 0.5 mg/dL (0.2-1.0); Blood Moderate (Negative); CO2 33.9 mmol/L (21.0-32.0); CREATININE 0.7 mg/dL (0.70-1.30); Calcium 8.6 mg/dL (8.5-10.1); Chloride 104 mmol/L (98-107); Clarity Sl Cloudy (Clear); Glucose 143 mg/dL (74-106); Glucose Negative (Negative); Ketones Negative (Negative); Leukocyte Esterase Small (Negative); NT-proBNP 344 pg/mL (<300); Nitrite Positive (Negative); Potassium 3.9 mmol/L (3.5-5.1); Sodium 142 mmol/L (136-145); Specific Gravity 1.025 (1.005-1.025); Total Protein 6.4 g/dL (6.4-8.2); Urobilinogen 0.2 EU/dL (Up TO 0.2); pH 5.5 (5-8)
[2022-02-27 18:00] LABS: C & S Indicated? C&S Done As Ordered
[2022-02-27 18:05] LABS: Bacteria Many HPF (Negative); Casts Negative LPF (Negative); Crystals Negative HPF (Negative); Epithelial Cells Few HPF (Negative); Mucus Negative (Negative); Other Cells Negative (Negative); RBC Negative HPF (0-2); WBC >50 HPF (0-5)
== END 2022-02-27 18:44 | disposition home or self-care (01) ==
LOC: LBN 18:43
PROVIDERS: PCP Nurse Practitioner; Visit Provider Nurse Practitioner Gerontology
DX: S12.400S Unspecified displaced fracture of fifth cervical vertebra, sequela (principal); G30.0 Alzheimer's disease with early onset
CPT/HCPCS: 80053; 87077; 81003; 81015; 83880; 85025; 87086; 87186

== ENCOUNTER 2022-04-04 18:26 | Outpatient (REF) | payer MEDICARE, MEDICAID, SELFPAY ==
[2022-04-04 20:57] LABS: TSH (W/Ref FT4) 2.79 uIU/mL (0.36-3.74)
[2022-04-06 05:47] LABS: Vitamin D 25 Total 50.3 ng/mL (30-100)
== END 2022-04-04 18:27 | disposition home or self-care (01) ==
LOC: LBN 18:26
PROVIDERS: PCP Nurse Practitioner; Visit Provider Nurse Practitioner Gerontology
DX: R68.89 Other general symptoms and signs (principal)
CPT/HCPCS: 82306; 84443

== ENCOUNTER 2022-04-19 16:58 | Outpatient (REF) | payer MEDICARE, MEDICAID, SELFPAY ==
[2022-04-19 18:13] LABS: TSH (W/Ref FT4) 3.73 uIU/mL (0.36-3.74)
== END 2022-04-19 16:59 | disposition home or self-care (01) ==
LOC: LBN 16:58
PROVIDERS: PCP Nurse Practitioner; Visit Provider Nurse Practitioner Gerontology
DX: E11.9 Type 2 diabetes mellitus without complications (principal); D68.9 Coagulation defect, unspecified; R68.89 Other general symptoms and signs
CPT/HCPCS: 84443

== ENCOUNTER 2022-08-15 17:50 | Outpatient (REF) | payer MEDICARE, MEDICAID, SELFPAY ==
[2022-08-15 19:34] LABS: Abs Immature Grans 0.01 10^3/uL (0.0-0.06); Absolute Basophil Count 0.05 10^3/uL (0.0-0.2); Absolute Eosinophil Count 0.31 10^3/uL (0.0-0.7); Absolute Lymphocyte Count 1.28 10^3/uL (1.2-3.4); Absolute Monocyte Count 0.69 10^3/uL (0.1-0.8); Absolute Neutrophil Count 3.45 10^3/uL (1.2-6.7); Basophils % 0.9; Eosinophils % 5.4; HGB 13.9 g/dL (13.5-17.5); Immature Grans % 0.2; Lymphocytes % 22.1; MCH 32.3 pg (27.0-33.0); MCHC 33.1 % (32.0-36.0); MCV 97 fL (80-95); MPV 11.5 fL (8.0-11.0); Monocytes % 11.9; Neutrophils % 59.5; Platelet Count 178 10^3/uL (130-400); RBC 4.31 10^6/uL (4.36-5.78); RDW 13.3 % (11.8-14.1); RDW-SD 47.8 fL; WBC 5.79 10^3/uL (4.4-10.8)
[2022-08-15 19:44] LABS: Iron 58 ug/dL (65-175); Total Iron Binding Capacity 245 ug/dL (250-450); Transferrin Sat 24 % (20-55)
[2022-08-15 19:48] LABS: Hemoglobin A1C 5.3 % (<5.7)
[2022-08-15 19:53] LABS: ALT 14 U/L (16-63); AST 19 U/L (15-37); Albumin 3.3 g/dL (3.4-5.0); Alkaline Phosphatase 68 U/L (46-116); Anion Gap 4.9 mmol/L (3-11); BUN 16 mg/dL (7-18); Bilirubin, Total 0.5 mg/dL (0.2-1.0); CO2 33.1 mmol/L (21.0-32.0); CREATININE 0.7 mg/dL (0.70-1.30); Calcium 9.1 mg/dL (8.5-10.1); Chloride 104 mmol/L (98-107); Estimated GFR 99.74 (mL/min/1.73m2); Glucose 96 mg/dL (74-106); NT-proBNP 279 pg/mL (<300); Potassium 3.7 mmol/L (3.5-5.1); Sodium 142 mmol/L (136-145); TSH (W/Ref FT4) 2.89 uIU/mL (0.36-3.74); Total Protein 7.4 g/dL (6.4-8.2)
[2022-08-15 20:11] LABS: Vitamin D 25 Total 55.2 ng/mL (30-100)
[2022-08-15 20:31] LABS: Vitamin B12 561 pg/mL (193-986)
== END 2022-08-15 17:51 | disposition home or self-care (01) ==
LOC: LBN 17:50
PROVIDERS: PCP Nurse Practitioner Family; Visit Provider Nurse Practitioner Gerontology
DX: E03.9 Hypothyroidism, unspecified (principal); E55.9 Vitamin D deficiency, unspecified; E53.9 Vitamin B deficiency, unspecified; R68.89 Other general symptoms and signs; E11.9 Type 2 diabetes mellitus without complications; D68.8 Other specified coagulation defects; R06.89 Other abnormalities of breathing
CPT/HCPCS: 80053; 82306; 82607; 83036; 83540; 83550; 83880; 84443; 85025